=== PATIENT | male | born 1955 | race Hispanic/Latino ===

== ENCOUNTER 2022-06-02 05:44 | Day surgery (SDC) | payer MEDICARE ==
[2022-05-26 13:15] LABS: BASOPHILS % (AUTO) 0.7 % (0.0-5.0); EOSINOPHILS % (AUTO) 14.3 % (0.0-8.0); HEMATOCRIT 39.1 % (42-54); LYMPHOCYTES % (AUTO) 15.5 % (21.0-51.0); MEAN CORPUSCULAR HEMOGLOBIN 29.2 pg (27.0-33.0); MEAN CORPUSCULAR HGB CONC 33.5 g/dL (32.0-36.0); MEAN CORPUSCULAR VOLUME 87.1 fL (79-99); MONOCYTES % (AUTO) 8.4 % (3.0-13.0); NEUTROPHILS % (AUTO) 60.6 % (40.0-77.0); PLATELET COUNT (AUTO) 194 K/uL (130-400); RED BLOOD CELL COUNT(AUTO) 4.49 MIL/uL (4.50-6.20); RED CELL DISTRIBUTION WIDTH 13.9 % (11.0-15.5); WHITE BLOOD COUNT (AUTO) 7.5 K/uL (4.8-10.8)
[2022-05-26 13:27] LABS: CREATININE 1.1 mg/dL (0.5-1.5); POTASSIUM 4.7 mmol/L (3.5-5.1)
[2022-05-26 13:29] LABS: PROTHROMBIN TIME 10.9 SEC (9.6-11.6)
[2022-05-26 13:31] LABS: PARTIAL THROMBOPLASTIN TIME 27.2 SEC (26.3-35.5)
[2022-05-26 14:07] LABS: B-TYPE NATRIURETIC PEPTIDE 16 pg/mL (0-100)
[2022-05-27 13:01] VITALS: BP 176/81
[2022-06-02] VITALS (12 sets, daily range): BP systolic 126–188; BP diastolic 59–76
[~2022-06-02] VITALS: Ht 157.5 cm; Wt 70.3 kg
[~2022-06-02 05:44] MED LIST: ALBUTEROL IH; AMLO2.5T4 PO; AMOX500T2 PO; ATOR40TA69 PO; CLOP75TA32 PO; INSREG SQ; LEVO75CA5 PO; LISI40TA9 PO; NPH,100V11 SQ
[2022-06-02] MEDS ORDERED: 0.9%NACL 1000ML 1,000 ML IV ONE (06:10)
[2022-06-02] MEDS ORDERED: IODIXANOL 320 MG/ML 100 ML VIAL ONE (08:01)
[2022-06-02] MEDS ORDERED: HEPARIN 10,000 UNIT/10ML (1,000 UNIT/ML) VIAL ONE (08:01)
[2022-06-02] MEDS ORDERED: LIDOCAINE HCL 1% 20 ML VIAL ONE (08:01)
[2022-06-02] MEDS ORDERED: NICARDIPINE 25MG INJ IV ONE (08:01)
[2022-06-02] MEDS ORDERED: NITROGLYCERIN 50MG VIAL ONE (08:01)
[2022-06-02] MEDS ORDERED: MIDAZOLAM HCL 1 MG/ML 2ML VIAL ONE (08:02)
[2022-06-02] MEDS ORDERED: FENTANYL CITRATE PF 50 MCG/1 ML 2ML VIAL ONE (08:02)
[2022-06-02] MEDS ORDERED: CLOPIDOGREL 300MG TAB ONE (09:16)
[2022-06-02] MEDS ORDERED: LABETALOL 20MG SYG IV ONE (09:20)
[2022-06-02] MEDS ORDERED: 0.9%NACL 1000ML 1,000 ML IV SCH (10:30)
[2022-06-02] MEDS ORDERED: CILOSTAZOL 100 MG TAB PO SCH (12:00)
== END 2022-06-02 15:25 | disposition home or self-care (01) ==
LOC: DAH 05:44
PROVIDERS: ATTEND Internal Medicine Cardiovascular Disease
DX: I70.238 Atherosclerosis of native arteries of right leg with ulceration of other part of lower leg (principal); I70.92 Chronic total occlusion of artery of the extremities; E11.51 Type 2 diabetes mellitus with diabetic peripheral angiopathy without gangrene; I10 Essential (primary) hypertension; E78.5 Hyperlipidemia, unspecified; Z98.890 Other specified postprocedural states; Z82.49 Family history of ischemic heart disease and other diseases of the circulatory system; Z83.3 Family history of diabetes mellitus; Z79.01 Long term (current) use of anticoagulants; Z79.899 Other long term (current) drug therapy
CPT/HCPCS: 80048; 83880; 85025; 85610; 85730; 36415; 71045; 93005; 75716; 82948 ×2; C9774; C1725; C1894 ×2; C1769 ×3; C1760; C1893; C1887; C1724; C1727; J3010; J7030; J3490 ×2; J1644 ×3; J2250; Q9967; A4215; A4222; A4221; A4663; A4216; A4606; A4223 ×3; 96374; 96375; 99156; 99157

== ENCOUNTER → 2022-06-20 | Outpatient (CLI) | payer MEDICARE ==
[~2022-06-20] VITALS: Ht 177.8 cm; Wt 68.0 kg
[~2022-06-20] MED LIST changes: +0.9%NACL 1000ML 1,000 ML IV SCH; +CILO100T3 PO
[2022-06-20 11:37] LABS: BASOPHILS % (AUTO) 0.6 % (0.0-5.0); EOSINOPHILS % (AUTO) 9.7 % (0.0-8.0); HEMATOCRIT 38.6 % (42-54); LYMPHOCYTES % (AUTO) 10.5 % (21.0-51.0); MEAN CORPUSCULAR HEMOGLOBIN 29.1 pg (27.0-33.0); MEAN CORPUSCULAR HGB CONC 33.7 g/dL (32.0-36.0); MEAN CORPUSCULAR VOLUME 86.4 fL (79-99); MONOCYTES % (AUTO) 7.6 % (3.0-13.0); NEUTROPHILS % (AUTO) 70.8 % (40.0-77.0); PLATELET COUNT (AUTO) 277 K/uL (130-400); RED BLOOD CELL COUNT(AUTO) 4.47 MIL/uL (4.50-6.20); RED CELL DISTRIBUTION WIDTH 13.8 % (11.0-15.5); WHITE BLOOD COUNT (AUTO) 8.5 K/uL (4.8-10.8)
[2022-06-20 11:43] LABS: CREATININE 1.2 mg/dL (0.5-1.5); POTASSIUM 4.7 mmol/L (3.5-5.1)
[2022-06-20 12:28] LABS: B-TYPE NATRIURETIC PEPTIDE 7 pg/mL (0-100)
[2022-06-20 12:35] LABS: PROTHROMBIN TIME 10.9 SEC (9.6-11.6)
[2022-06-20 12:36] LABS: PARTIAL THROMBOPLASTIN TIME 30.2 SEC (26.3-35.5)
== END | disposition home or self-care (01) ==
LOC: DAH 10:00 → EDSTATUS 10:00
PROVIDERS: ATTEND Internal Medicine Cardiovascular Disease
DX: Z01.810 Encounter for preprocedural cardiovascular examination (principal); I73.9 Peripheral vascular disease, unspecified; Z79.01 Long term (current) use of anticoagulants
CPT/HCPCS: 36415; 71045; 80048; 83880; 85025; 85610; 85730; 93005

== ENCOUNTER 2023-10-13 05:50 | Day surgery (SDC) | payer MEDICARE ==
[2023-10-09 10:02] VITALS: BP 164/80; PULSE 93; RESP 19
[2023-10-09 10:02] LABS: BASOPHILS # (AUTO) 0.04 K/uL (0.00-0.20); BASOPHILS % (AUTO) 0.4 % (0.0-5.0); EOSINOPHILS # (AUTO) 0.97 K/uL (0.00-0.70); EOSINOPHILS % (AUTO) 9.8 % (0.0-8.0); HEMATOCRIT 35.7 % (42-54); IMMATURE GRANULOCYTE ABSOLUTE 0.07 K/uL (0-1); LYMPHOCYTES % (AUTO) 9.7 % (21.0-51.0); MEAN CORPUSCULAR HEMOGLOBIN 28.1 pg (27.0-33.0); MEAN CORPUSCULAR HGB CONC 33.3 g/dL (32.0-36.0); MEAN CORPUSCULAR VOLUME 84.4 fL (79-99); MONOCYTES # (AUTO) 0.6 K/uL (0.1-1.0); MONOCYTES % (AUTO) 5.5 % (3.0-13.0); NEUTROPHILS # (AUTO) 7.3 K/uL (1.8-7.7); NEUTROPHILS % (AUTO) 73.9 % (40.0-77.0); PLATELET COUNT (AUTO) 247 K/uL (130-400); RED BLOOD CELL COUNT(AUTO) 4.23 MIL/uL (4.50-6.20); RED CELL DISTRIBUTION WIDTH 14.6 % (11.0-15.5); WHITE BLOOD COUNT (AUTO) 9.9 K/uL (4.8-10.8)
[2023-10-09 10:12] LABS: INR <= 0.93 (0.85-1.15); PROTHROMBIN TIME 10.8 SEC (9.6-11.6)
[2023-10-09 10:13] LABS: PARTIAL THROMBOPLASTIN TIME 29.9 SEC (26.3-35.5)
[2023-10-09 10:13] LABS: ADD UA MICROSCOPIC YES; APPEARANCE,URINE CLEAR (CLEAR); BILIRUBIN,URINE NEGATIVE (NEGATIVE); COLOR,URINE LIGHT-YELLOW (YELLOW); GLUCOSE, URINE (UA) >=1000 mg/dL (NEGATIVE); KETONES,URINE NEGATIVE (NEGATIVE); LEUKOCYTE ESTERASE ,URINE NEGATIVE Leu/uL (NEGATIVE); NITRATE,URINE NEGATIVE (NEGATIVE); OCCULT BLOOD,URINE NEGATIVE (NEGATIVE); PROTEIN,URINE 20 mg/dL (NEGATIVE); UROBILINOGEN,URINE 0.2 mg/dL (0.2-1.0)
[2023-10-09 10:14] LABS: MUCUS,URINE RARE LPF (None Seen); SQUAMOUS EPITHELIAL CELL,UR RARE /HPF (0-2); WBC,URINE 0-1 /HPF (0-1)
[2023-10-09 10:16] LABS: CREATININE 1.4 mg/dL (0.5-1.3); POTASSIUM 4.7 mmol/L (3.5-5.1)
[2023-10-09 10:22] LABS: B-TYPE NATRIURETIC PEPTIDE 28 pg/mL (0-100)
[2023-10-13] VITALS (10 sets, daily range): BP systolic 98–168; BP diastolic 50–80; PULSE 84–93; RESP 14–18
[~2023-10-13] VITALS: Ht 177.8 cm; Wt 68.0 kg
[~2023-10-13 05:50] MED LIST changes: -0.9%NACL 1000ML 1,000 ML IV SCH; +ALBU2.5V2 IH; -ALBUTEROL IH; -AMOX500T2 PO; -INSREG SQ; +INSU100V3 SQ; +LISI20TA24 PO; -LISI40TA9 PO; +METO-408 PO; +NPH,100V SQ; -NPH,100V11 SQ; +TRIA60LO11 TP
[2023-10-13] MEDS: 0.9%NACL 1000ML 1,000 ML IV ONE (06:21)
[2023-10-13] MEDS ORDERED: LIDOCAINE HCL 400MG/20ML VIAL ONE (07:27)
[2023-10-13] MEDS ORDERED: MIDAZOLAM HCL 1 MG/ML 2ML VIAL ONE ×2 (07:27→09:35)
[2023-10-13] MEDS ORDERED: FENTANYL CITRATE PF 50 MCG/1 ML 2ML VIAL ONE (07:27)
[2023-10-13] MEDS ORDERED: HEPARIN 10,000 UNIT/10ML (1,000 UNIT/ML) VIAL ONE (07:27)
[2023-10-13] MEDS ORDERED: IODIXANOL 320 MG/ML 100 ML VIAL ONE (07:27)
[2023-10-13] MEDS ORDERED: NICARDIPINE 25MG INJ IV ONE (07:28)
[2023-10-13] MEDS ORDERED: NITROGLYCERIN 50MG VIAL ONE (07:28)
[2023-10-13] MEDS ORDERED: LABETALOL 20MG SYG IV ONE (08:25)
[2023-10-13] MEDS ORDERED: CLOPIDOGREL 300MG TAB ONE (08:37)
[2023-10-13] MEDS ORDERED: HYDRALAZINE 20MG/ML VIAL ONE (09:12)
[2023-10-13] MEDS ORDERED: ONDANSETRON 4MG INJ ONE (09:28)
[2023-10-13] MEDS ORDERED: DEXTROSE 50%-WATER 50 ML DISP.SYRIN IV PRN (10:00)
[2023-10-13] MEDS ORDERED: 0.9%NACL 1000ML 1,000 ML IV SCH (10:00)
[2023-10-13] MEDS ORDERED: GLUCAGON 1MG KIT 1 MG ML IM PRN (10:00)
[2023-10-13] MEDS: INSULIN HUMULIN R 100 UNIT/ML 3ML ONE (10:33)
== END 2023-10-13 13:50 | disposition home or self-care (01) ==
LOC: DAH 05:50
PROVIDERS: ATTEND Internal Medicine Cardiovascular Disease
DX: I70.248 Atherosclerosis of native arteries of left leg with ulceration of other part of lower leg (principal); E11.51 Type 2 diabetes mellitus with diabetic peripheral angiopathy without gangrene; L97.828 Non-pressure chronic ulcer of other part of left lower leg with other specified severity; I70.92 Chronic total occlusion of artery of the extremities; I49.3 Ventricular premature depolarization; I10 Essential (primary) hypertension; E78.5 Hyperlipidemia, unspecified; Z79.899 Other long term (current) drug therapy; Z79.01 Long term (current) use of anticoagulants; Z88.8 Allergy status to other drugs, medicaments and biological substances; Z82.49 Family history of ischemic heart disease and other diseases of the circulatory system; Z98.890 Other specified postprocedural states; Z79.4 Long term (current) use of insulin
CPT/HCPCS: 80048; 83880; 85025; 85610; 85730; 81001; 36415; 71045; 93005; 37228; 85347; 82948 ×2; 75716; J1815; C1894 ×3; C1769 ×6; C1760; C2623; C1887; C1725; J3010; J3490 ×3; J7030; J0360; J1644 ×3; J2250 ×2; J2405; Q9967; A4215; A4222; A4221; A4663; A4216; A4606; A4223 ×3; 75774; 96360; 96361; 99156; 99157

== ENCOUNTER → 2024-04-07 | Outpatient (CLI) | payer MEDICARE | END | disposition home or self-care (01) | LOC: SHCH 12:35 | PROVIDERS: ATTEND Internal Medicine Cardiovascular Disease | DX: I87.2 Venous insufficiency (chronic) (peripheral) (principal) | CPT/HCPCS: 93970 ==

== ENCOUNTER 2024-06-26 15:50 | Inpatient (IN) | payer MEDICARE ==
[~2024-06-26] VITALS: Ht 165.1 cm; Wt 76.7 kg
--- NOTE | 2024-06-26 16:10 | NUR ---
PRESENTS WITH MULTIPLE WOUNDS THROUGHOUT. LATA PICC OR MIDLINE. PEG. SHARMA CATHETER,.
[2024-06-26] MEDS: cefTRIAXone 1G VIAL IVPB ONE (16:29)
[2024-06-26 16:41] LABS: BASOPHILS # (AUTO) 0.02 K/uL (0.00-0.20); BASOPHILS % (AUTO) 0.2 % (0.0-5.0); EOSINOPHILS # (AUTO) 0.15 K/uL (0.00-0.70); EOSINOPHILS % (AUTO) 1.6 % (0.0-8.0); HEMATOCRIT 24.2 % (42-54); IMMATURE GRANULOCYTE ABSOLUTE 0.14 K/uL (0-1); LYMPHOCYTES # (AUTO) 0.7 K/uL (1.0-4.8); LYMPHOCYTES % (AUTO) 6.9 % (21.0-51.0); MEAN CORPUSCULAR HEMOGLOBIN 28.4 pg (27.0-33.0); MEAN CORPUSCULAR VOLUME 91.7 fL (79-99); MONOCYTES # (AUTO) 0.5 K/uL (0.1-1.0); MONOCYTES % (AUTO) 4.8 % (3.0-13.0); PLATELET COUNT (AUTO) 126 K/uL (130-400); RED BLOOD CELL COUNT(AUTO) 2.64 MIL/uL (4.50-6.20); RED CELL DISTRIBUTION WIDTH 23.5 % (11.0-15.5); WHITE BLOOD COUNT (AUTO) 9.4 K/uL (4.8-10.8)
[2024-06-26 16:42] LABS: SARS-CoV-2, RNA, NAAT NEGATIVE SARS CoV-2 (NEGATIVE)
[2024-06-26 16:47] LABS: INFLUENZA TYPE A Negative For Type A (NEGATIVE); INFLUENZA TYPE B Negative For Type B (NEGATIVE)
[2024-06-26 16:51] LABS: INR 1.04 (0.85-1.15); PROTHROMBIN TIME 11.6 SEC (9.6-11.6)
[2024-06-26 16:53] LABS: PARTIAL THROMBOPLASTIN TIME 30.2 SEC (26.3-35.5)
[2024-06-26 16:56] LABS: CREATININE 2.1 mg/dL (0.5-1.3); POTASSIUM 4.9 mmol/L (3.5-5.1)
[2024-06-26 16:59] LABS: B-TYPE NATRIURETIC PEPTIDE 86 pg/mL (0-100)
--- NOTE | 2024-06-26 17:38 | ERN ---
General Chief Complaint: Multiple Complaints Stated Complaint: HYPOTENSION, FEVER, WEAKNESS Time Seen by MD: 15:56 Source: patient History of Present Illness Initial Comments PATIENT IS A 68-YEAR-OLD FEMALE COMING IN TO BE EVALUATED FOR GENERALIZED BODY WEAKNESS AND PER EMS LOW BLOOD PRESSURE. PATIENT HAS A EXTENSIVE HISTORY OF CARDIAC EVENT WITH END-STAGE RENAL DISEASE REQUIRING DIALYSIS. PATIENT WAS BEING EVALUATED AND JAIL AND CONCERNS FOR PULMONARY CONGESTION AND FEVER HER BROUGHT UP IN HIS IS A REASON WHY PATIENT WAS SENT IN TO BE FURTHER EVALUATED. Allergies: Coded Allergies: aspirin (Unverified Allergy, Unknown, 04/25/22) Home Meds Discontinued Reported Medications Atorvastatin Calcium (LIPITOR) 40 Mg Tablet, 1 TAB PO HS for 30 Days, #30 TAB 0 Refills 06/03/24 Hydroxyzine HCl (Hydroxyzine HCl) 25 Mg Tablet, 1 TAB PO HS for anxiety for 30 Days, #60 TAB 0 Refills 06/03/24 Cilostazol (Cilostazol) 100 Mg Tablet, 1 TAB PO HS for 30 Days, #60 TAB 0 Refills 06/03/24 Rivaroxaban (Xarelto) 20 Mg Tablet, 1 TAB PO BID for 30 Days, #30 TAB 0 Refills with food 06/03/24 Metoprolol Succinate (Metoprolol Succinate) 50 Mg Tab.er.24h, 1 TAB PO BID for 30 Days, #30 TAB 0 Refills 06/03/24 Levothyroxine Sodium (Levothyroxine) 75 Mcg Capsule, 1 TAB PO DAILY for 30 Days, #30 CAP 0 Refills 06/03/24 Albuterol Sulfate (Albuterol Sulfate) 2.5 Mg/3 Ml (0.083 %) Vial.neb, 2.5 MG IH Q4HPRN PRN for SHORTNESS OF BREATH, INH 10/09/23 Insulin Regular, Human (Humulin R) 100 Unit/Ml Vial, SQ HS, VIAL SLIDING SCALE 10/09/23 NPH, Human Insulin Isophane (Humulin N) 100 Unit/Ml Vial, 9 UNIT SQ HS, VIAL 10/09/23 NPH, Human Insulin Isophane (Humulin N) 100 Unit/Ml Vial, 20 UNITS SQ DAILY, VIAL 10/09/23 Insulin Regular, Human (Humulin R) 100 Unit/Ml Vial, 5 UNITS SQ DAILY, VIAL 10/09/23 Past Medical History Past Medical History: Diabetes-Type II, DVT, Hypertension, Stroke Medical History Other: BLOOD CLOT IN RIGHT LEG, Past Surgical History: Other Surgical History Other: BILATERAL TMA ROS Dictation CONSTITUTIONAL: NO CHILLS, NO FEVER, WEAKNESS, NO DIAPHORESIS, MALAISE. HEAD/FACE: NO SIGNS OF TRAUMA. EENT: NO EYE PAIN, NO BLURRED VISION, NO TEARING, NO DOUBLE VISION, NO EAR PAIN, NO EAR DISCHARGE, NO NOSE PAIN, NO NASAL CONGESTION, NO THROAT PAIN, NO THROAT SWELLING, NO MOUTH PAIN. RESPIRATORY: COUGH, NO ORTHOPNEA, NO SOB, NO STRIDOR, NO WHEEZING. CARDIOVASCULAR: NO CHEST PAIN, NO EDEMA, NO PALPITATIONS, NO SYNCOPE. GASTROINTESTINAL/ABDOMINAL: NO ABDOMINAL PAIN, NO CONSTIPATION, NO DIARRHEA, NO NAUSEA, NO VOMITING. GENITOURINARY: NO ABNORMAL DISCHARGE, NO DYSURIA, NO FREQUENT URINATION, NO HEMATURIA. NO COMPLAINTS OF PAIN IN THE GENITALS. MUSCULOSKELETAL: NO BACK PAIN, NO GOUT, NO JOINT PAIN, NO JOINT SWELLING, NO MUSCLE PAIN, NO MUSCLE STIFFNESS, NO NECK PAIN. INTEGUMENTARY: NO CHANGE IN COLOR, NO CHANGE IN HAIR/NAILS, NO DRYNESS, NO LESION, NO LUMPS, NO RASH. NEUROLOGICAL/PSYCH: NO ANXIETY, NOT DEPRESSED, NO EMOTIONAL PROBLEM, NO HEADACHE, NO NUMBNESS, NO PRE-EXISTING DEFICIT, NO HISTORY OF SEIZURES, NO TREMORS, NO WEAKNESS. HEMATOLOGIC/LYMPHATIC: NOT ANEMIC, NO HISTORY OF BLOOD CLOTS, NO APPARENT BLEEDING, NO BRUISING, GLANDS NOT SWOLLEN. ALL SYSTEMS NEGATIVE, EXCEPT NOTED. Physical Exam Physical Exam Dictation VITAL SIGNS: REVIEWED. GENERAL APPEARANCE: ALERT, ORIENTED X3, NO ACUTE DISTRESS, OBESE. HEAD AND FACE: NON-TRAUMATIC. EYES: PERRL, PINK CONJUNCTIVAS, EYELID NO TRAUMA, ANTERIOR CHAMBER CLEAR. EARS: PINNAS INTACT AND NO SIGNS OF TRAUMA OR ERYTHEMA. EAR CANALS CLEAR AND NO DISCHARGE. TMS NO ERYTHEMA. NOSE: NO DISCHARGE, NO BLEEDING. OROPHARYNX: MOUTH NORMAL, TEETH NO CARIES, TONGUE PINK. PHARYNX CLEAR, NO ERYTHEMA. TONSILS NO EXUDATES, NO ABSCESSES NOTED. MUCOUS MEMBRANE MOIST. NECK: SUPPLE, NON-TENDER, NO THYROMEGALY, NO MASSES, NO JVD, NO BRUITS. BREAST: DEFERRED. CHEST: NO TENDERNESS, NO CREPITUS, NO PARADOXICAL MOVEMENT, NO RETRACTIONS. LUNGS: CLEAR, WELL-VENTILATED, SYMMETRIC, RALES, NO WHEEZING, RHONCHI, NO STRIDOR, GOOD BREATH SOUNDS BILATERALLY. HEART: REGULAR RATE, REGULAR RHYTHM, NO MURMUR, NO GALLOPS. VASCULAR: NO PERIPHERAL EDEMA. ABDOMEN: SOFT, POSITIVE BOWEL SOUNDS, NONDISTENDED, NO GUARDING, NONTENDER, NO REBOUND, NO MASSES NO HEPATOMEGALY, NO SPLENOMEGALY, NO CORRAL'S SIGN, NO HERNIA S. RECTAL: DEFERRED. GENITAL: DEFERRED. NEUROLOGICAL: NORMAL SPEECH, GROSS MOTOR FUNCTION INTACT, GROSS SENSORY FUNCTION INTACT. MUSCULOSKELETAL: NECK NONTENDER, FULL RANGE OF MOTION, BACK NONTENDER, FULL RANGE OF MOTION. EXTREMITIES: NONTENDER, FULL RANGE OF MOTION. SKIN: COLOR PINK, DRY, NO TURGOR, NO RASH, NO LACERATIONS, NO ABRASIONS, NO CONTUSIONS. LYMPHATICS: DEFERRED. Results Laboratory and Microbiology Lab and Micro Result Laboratory Tests Test 06/26/24 16:23 06/26/24 16:24 06/26/24 17:44 Influenza Type A Antigen Negative For Type A Influenza Type B Antigen Negative For Type B SARS-CoV-2, RNA, NAAT NEGATIVE SARS CoV-2 White Blood Count 9.4 K/uL (4.8-10.8) Red Blood Count 2.64 MIL/uL (4.50-6.20) L Hemoglobin 7.5 g/dL (14.0-18.0) L Hematocrit 24.2 % (42-54) L Mean Corpuscular Volume 91.7 fL (79-99) Mean Corpuscular Hemoglobin 28.4 pg (27.0-33.0) Mean Corpuscular Hemoglobin Concent 31.0 g/dL (32.0-36.0) L Red Cell Distribution Width 23.5 % (11.0-15.5) H Platelet Count 126 K/uL (130-400) L Mean Platelet Volume 10.6 fL (7.5-10.5) H Immature Granulocyte % (Auto) 1.5 % (0-1) H Neutrophils (%) (Auto) 85.0 % (40.0-77.0) H Lymphocytes (%) (Auto) 6.9 % (21.0-51.0) L Monocytes (%) (Auto) 4.8 % (3.0-13.0) Eosinophils (%) (Auto) 1.6 % (0.0-8.0) Basophils (%) (Auto) 0.2 % (0.0-5.0) Neutrophils # (Auto) 8.0 K/uL (1.8-7.7) H Lymphocytes # (Auto) 0.7 K/uL (1.0-4.8) L Monocytes # (Auto) 0.5 K/uL (0.1-1.0) Eosinophils # (Auto) 0.15 K/uL (0.00-0.70) Basophils # (Auto) 0.02 K/uL (0.00-0.20) Absolute Immature Granulocyte (auto 0.14 K/uL (0-1) Nucleated Red Blood Cells 0.0 % (0.0-0.19) Prothrombin Time 11.6 SEC (9.6-11.6) Prothromb Time International Ratio 1.04 (0.85-1.15) Activated Partial Thromboplast Time 30.2 SEC (26.3-35.5) Sodium Level 145 mmol/L (136-145) Potassium Level 4.9 mmol/L (3.5-5.1) Chloride Level 111 mmol/L (101-111) Carbon Dioxide Level 32 mmol/L (21-32) Blood Urea Nitrogen 45 mg/dL (7-18) H Creatinine 2.1 mg/dL (0.5-1.3) H Glomerular Filtration Rate Calc 33 mL/min (>90) Random Glucose 298 mg/dL (70-105) H Lactic Acid Level 1.6 mmol/L (0.8-2.5) Total Calcium 7.4 mg/dL (8.5-10.1) L Total Creatine Kinase 106 U/L (21-232) # Troponin I High Sensitivity 34 ng/L (4-75) B-Type Natriuretic Peptide 86 pg/mL (0-100) Procalcitonin 1.19 ng/mL (0.05-0.5) H Urine Color YELLOW (YELLOW) Urine Appearance HAZY (CLEAR) Urine pH 7.0 (5.0-8.0) Urine Specific Cliff 1.019 (1.001-1.031) Urine Protein 30 mg/dL (NEGATIVE) H Urine Glucose (UA) >=1000 mg/dL (NEGATIVE) H Urine Ketones NEGATIVE mg/dL (NEGATIVE) Urine Occult Blood SMALL (NEGATIVE) H Urine Nitrate NEGATIVE (NEGATIVE) Urine Bilirubin NEGATIVE mg/dL (NEGATIVE) Urine Urobilinogen 0.2 mg/dL (0.2-1.0) Urine Leukocyte Esterase 500 Abhijeet/uL (NEGATIVE) H Urine RBC 26-50 /HPF (0-1) H Urine WBC 26-50 /HPF (0-1) H Urine Bacteria RARE /HPF (None Seen) Urine Yeast MANY /HPF (None Seen) Labs Reviewed?: Yes EKG/XRAY/US/CT/MRI EKG Comment 06/26/2024 TIME 17:44 VENTRICULAR RATE 92. SINUS RHYTHM MT [address] WAVE ELEVATION OR DEPRESSION X-RAY Comment [address] [place], [place] [id number] IMAGING REPORT Signed PATIENT: TYRON MIN MR#: [id number] : 1955 SEX: M AGE: 68 LOCATION: [facility] ORDER 26 STATUS: REG ER REPORT#: [id number] SERVICE 25 REASON: FEVER ORDERING PHYSICIAN: HARIKA ESPINOZA MD PROCEDURE: CXR1VW - CHEST 1VW CHEST 1VW HISTORY: Fever COMPARISON: 06/19/2024 FINDINGS: A frontal projection of the chest was obtained. Prominent interstitial markings are seen with possible superimposed infiltrates. The heart is normal in size. Degenerative changes are seen. No evidence of aortic calcification is seen. IMPRESSION: 1. Prominent interstitial markings are seen with possible superimposed infiltrates. DICTATED BY: MADISON RENEE MD DATE: 06/26/241809 ELECTRONICALLY SIGNED BY: MADSION RENEE MD DATE: 06/26/241814 [facility] MDM: DIFFERENTIAL DIAGNOSIS: PNEUMONITIS, URI, SEPSIS, RATIONALE: TESTS CONSIDERED AND ORDERED SECONDARY TO SHARED DECISION MAKING INCLUDE: LABS, ECG AND RADIOLOGY PREVIOUS OUTSIDE RECORDS REVIEWED: OLD ER VISITS. RISK OF COMPLICATION AND/OR MORBIDITY OR MORTALITY OF PATIENT MANAGEMENT: NONE MEDICATIONS-PER MEDICATION RECONCILIATION NEED FOR HOSPITALIZATION: PATIENT DOES MEET CRITERIA FOR HOSPITALIZATION. NEED FOR EMERGENCY MAJOR/MINOR SURGERY: NO THERE ARE NO SOCIAL CONCERNS WITH THIS PATIENT. PRESCRIPTION DRUG MANAGEMENT PRESCRIPTIONS WILL INCLUDE SYMPTOMATIC CARE PATIENT'S PRIOR EXTERNAL MEDICAL RECORDS FROM OTHER ER VISITS WERE REVIEWED BY ME INDICATED. PRIOR TESTING AND RESULTS FROM PREVIOUS VISITS WERE REVIEWED. PRIOR TESTS WERE TAKEN INTO ACCOUNT WITH MEDICAL DECISION MAKING AND RESOURCE UT ILIZATION, INDEPENDENT HISTORIAN/HISTORIANS WERE USED TO OBTAIN COMPLETE MEDICAL HISTORY. I INDEPENDENTLY INTERPRETED THE TEST THAT WERE PERFORMED, RESULTS WERE REVIEWED BY ME AND CONSIDERED FINDINGS ON RADIOLOGY IF ORDERED. MEDICAL MANAGEMENT AND EXAMINATION INTERPRETATION DISCUSSIONS WERE HAD BY ME WITH OTHER QUALIFIED HEALTHCARE PROFESSIONALS INDICATED FOR THE PATIENT'S CAR E. PATIENT IS A 68-YEAR-OLD MALE RESIDENT JAIL BROUGHT IN DUE TO THE SHORTNESS OF BREATH AND FEVER. UPON EVALUATION MILD PULMONARY INFILTRATES AND DID SET UP THE SEPSIS ALERT. PATIENT WILL BE ADMITTED UNDER THE CARE OF [facility] FOR ONGOING MANAGEMENT. ED Course Orders Procedure Category Date Status Time Cbc With Differential LAB 06/26/24 Complete 16:09 Prothrombin Time With LAB 06/26/24 Complete INR 16:09 Partial LAB 06/26/24 Complete Thromboplastin Time 16:09 Blood Cult NIKOLAS 06/26/24 In Process 16:09 Urinalysis Profile LAB 06/26/24 Complete 16:09 Culture Urine NIKOLAS 06/26/24 In Process 16:09 Creatine Kinase, Total LAB 06/26/24 Complete 16:09 Troponin I High LAB 06/26/24 Complete Sensitivity 16:09 B-Type Natriuretic LAB 06/26/24 Complete Peptide 16:09 Procalcitonin LAB 06/26/24 Complete 16:09 Lactic Acid LAB 06/26/24 Complete 16:09 Ceftriaxone 1g Vial PHA 06/26/24 Complete (Rocephine 1g Inj) 16:30 Basic Metabolic Panel LAB 06/26/24 Complete 16:09 Covid Rna Naat LAB 06/26/24 Complete 16:09 Influenza Type A & B, LAB 06/26/24 Complete Rapid 16:09 Chest 1vw RAD 06/26/24 Resulted 17:26 12 Lead Ekg Tracing- EKG 06/26/24 Complete Technical 17:39 Current Medications Medications (Trade) Dose Ordered Sig/Guevara Route PRN Reason Start Time Stop Time Status Last Admin Dose Admin Ceftriaxone Sodium (ROCEphine 1G INJ) 1 gm ONCE ONCE IVPB 06/26/24 16:30 06/26/24 16:31 DC 06/26/24 16:29 Vital Signs Date Time Temp Pulse Resp B/P (MAP) Pulse Ox O2 Delivery O2 Flow Rate FiO2 06/26/24 15:59 100.0 96 15 142/40 99 Nasal Cannula* 2 28 06/26/24 15:53 100.0 98 18 139/44 98 Nasal Cannula 2.0 Critical Care Note Comments CRITICAL CARE PROCEDURE NOTE AUTHORIZED AND PERFORMED BY: ME TOTAL CRITICAL CARE TIME: APPROXIMATELY 36 MINUTES DUE TO A HIGH PROBABILITY OF CLINICALLY SIGNIFICANT, LIFE THREATENING DETERIORATION, THE PATIENT REQUIRED MY HIGHEST LEVEL OF PREPAREDNESS TO INTERVENE EMERGENTLY AND I PERSONALLY SPENT THIS CRITICAL CARE TIME DIRECTLY AND PERSONALLY MANAGING THE PATIENT. THIS CRITICAL CARE TIME INCLUDED OBTAINING A HISTORY; EXAMINING THE PATIENT; PULSE OXIMETRY; ORDERING AND REVIEW OF STUDIES; ARRANGING URGENT TREATMENT WITH DEVELOPMENT OF A MANAGEMENT PLAN; EVALUATION OF PATIENT'S RESPONSE TO TREATMENT; FREQUENT REASSESSMENT; AND, DISCUSSIONS WITH OTHER PROVIDERS. THIS CRITICAL CARE TIME WAS PERFORMED TO ASSESS AND MANAGE THE HIGH PROBABILITY OF IMMINENT, LIFE-THREATENING DETERIORATION THAT COULD RESULT IN MULTI-ORGAN FAILURE. IT WAS EXCLUSIVE OF SEPARATELY BILLABLE PROCEDURES AND TREATING OTHER PATIENTS AND TEACHING TIME. PLEASE SEE MDM SECTION AND THE REST OF THE NOTE FOR FURTHER INFORMATION ON PATIENT ASSESSMENT AND TREATMENT. DX & DISP Disposition: Inpatient Decision to Admit Time: 18:53 Departure Impression: Primary Impression: Pneumonitis Additional Impressions: Sepsis, URI (upper respiratory infection) Condition: Stable Scripts No Active Prescriptions or Reported Meds Referrals: JOHANN CARLSON MD (PCP) HARIKA ESPINOZA MD Jun 26, 2024 17:38
--- NOTE | 2024-06-26 17:47 | EKG ---
[facility] Test Date: 2024-06-26 Test Time: 17:44:46 Pat Name: TYRON MIN Department: ED Room: 317 Gender: M Prenatal Genetic Counselor: [id number] : 1955 Requested By: HARIKA ESPINOZA Order Number: [id number] Reading MD: Chato Kitchen Measurements Intervals Edmonson Rate: 92 P: 73 DE: 181 QRS: 59 QRSD: 79 T: 73 QT: 413 QTc: 510 Interpretive Statements Sinus rhythm Nonspecific T abnormalities, lateral leads Prolonged QT interval Compared to ECG 06/17/2024 03:52:22 T-wave abnormality now present Electronically Signed On 06-26-2024 21:47:53 TAKE OFF MAN by Chato Kitchen Please click the below link to view image of tracing.
--- NOTE | 2024-06-26 18:15 | HMCIMG ---
CHEST 1VW HISTORY: Fever COMPARISON: 06/19/2024 FINDINGS: A frontal projection of the chest was obtained. Prominent interstitial markings are seen with possible superimposed infiltrates. The heart is normal in size. Degenerative changes are seen. No evidence of aortic calcification is seen. IMPRESSION: 1. Prominent interstitial markings are seen with possible superimposed infiltrates.
[2024-06-26 18:32] LABS: APPEARANCE,URINE HAZY (CLEAR); BILIRUBIN,URINE NEGATIVE (NEGATIVE); COLOR,URINE YELLOW (YELLOW); GLUCOSE, URINE (UA) >=1000 mg/dL (NEGATIVE); KETONES,URINE NEGATIVE (NEGATIVE); LEUKOCYTE ESTERASE ,URINE 500 Leu/uL (NEGATIVE); NITRATE,URINE NEGATIVE (NEGATIVE); OCCULT BLOOD,URINE SMALL (NEGATIVE); UROBILINOGEN,URINE 0.2 mg/dL (0.2-1.0)
[2024-06-26 18:33] LABS: ADD UA MICROSCOPIC YES; PROTEIN,URINE 30 mg/dL (NEGATIVE)
[2024-06-26 18:34] LABS: BACTERIA,URINE RARE /HPF (None Seen); RBC,URINE 26-50 /HPF (0-1); WBC,URINE 26-50 /HPF (0-1); YEAST,URINE BUDDING MANY /HPF (None Seen)
[2024-06-26] MEDS ORDERED: TEMAZepam 15 MG CAPSULE PO PRN (19:30)
[2024-06-26] MEDS ORDERED: ondanSETRON 4MG INJ IVP PRN (19:30)
[2024-06-26] MEDS ORDERED: doCUSate SODIUM 100 MG CAP PO PRN (19:30)
[2024-06-26] MEDS ORDERED: DOXYCYCLINE 100MG+NS 250ML 250 ML IV SCH (19:30)
[2024-06-26] MEDS ORDERED: LACTULOSE 20 GM/30 ML UDCUP PO PRN (19:30)
[2024-06-26] MEDS ORDERED: acetaMINOPHEN 650 MG SUPPOSITORY RC PRN (19:30)
--- NOTE | 2024-06-26 19:41 | HP ---
[facility] HISTORY & PHYSICAL Date Patient Seen: Jun 26, 2024 Time of Visit: 19:41 Supervising Physician: Dr. Curtis Gillette Primary Care Physician: Dr. Huey Frank Outpatient Specialists: Inpatient Consults: Infectious disease Wound Care PROBLEM LIST: Sepsis without septic shock, POA Acute complicated cystitis, POA -Araya COMMUNITY EDUCATION SPECIALIST Large wounds to upper inner thighs, POA Aspiration pneumonia, POA Acute infectious metabolic encephalopathy, POA ANJU on CKD stage 3b, GFR 33 POA (GFR 43 on 06/22/2024. GFR 14 on 06/03/2024) Dysphagia s/p peg tube placement on 06/20/2024 Oral thrush, POA Anemia chronic disease Thrombocytopenia Debility/frailty/general body weakness Diabetes mellitus with hyperglycemia, A1c 8.5 on 06/11/24 LVEF 60-65, left ventricular diastolic dysfunction is indeterminate. Left atrium size is mildly dilated, per echo on 06/04/2024 Protein calorie malnutrition/hypoalbuminemia Chronic problem list: Remote CVA, Hypertension, hyperlipidemia, diabetes mellitus, right eye surgery History of DVT on Xarelto. (normal bilateral lower extremity venous Doppler subtle on 06/17/2024) History of DKA History of in-hospital cardiac arrest (5 minutes) on 06/06/2024 Acute hypoxemic respiratory failure intubated in 06/06/2024 and extubated on 06/15/2024 History of a Gram-negative bacteria, positive Proteus mirabilis History of liver failure with hyperbilirubinemia and thrombocytopenia History of coagulopathy with critically elevated fibrinogen level and thrombocytopenia History of TMA, right eye surgery. Peg tube placement on 06/20/2024 HPI: Mr. Blanco is a 68-year-old male with a history of a DM type 2, CVA, DVT, hypertension, CVA, with ESRD requiring dialysis who presented to [facility] for evaluation of general body weakness and low blood pressure per EMS. Per ED physician the patient is coming from [facility] and was sent due to concern for pulmonary congestion and fever. Per staff unknown how low the blood pressure was. Influenza and COVID are negative. Chest x-ray: Prominent interstitial markings are seen with possible superimposed infiltrates. ABGs: PH 7.543, pCO2 34, PO2 106.3, bicarbonate 25.9, O2 98.3, base excess 3.3, on2 L nasal cannula. Remarkable lab results: Hemoglobin 7.5, hematocrit 24.2, RBC 2.64, platelets 126, BUN 45, creatinine 2.1, GFR 33, blood glucose 298, total calcium 7.4, procalcitonin 1.9. UA positive for leuk EST. ED provider request patient be admitted with the diagnosis of pneumonitis, sepsis, and upper respiratory infection. I went to assess the patient at bedside in ED 11. The patient appeared chronically ill, hot to touch, eyes closed, speech is slurred, does not follow command, has tremor to his left hand. Patient's was at bedside and stated that the patient has had a previous stroke and is sometime was oriented to self and sometimes to place. She states his baseline is slurred speech, is not able to move bilateral lower extremity, and has some movement to upper extremities. She stated that the patient has thrush, indwelling Araya that was placed in the hospital and has not been changed. She is requesting water for patient to most and his mouth. had multiple questions which were addressed by me. I informed the of labs, diagnostics, and plan of care. Education done on dysphagia and aspiration precautions. She verbalizes understanding and is in agreement with the plan. Plan and assessment are listed below. Past Medical History: Diabetes-Type II, DVT, Hypertension, CVA, DVT and right lower extremity Past Surgical History: Bilateral TMA Social history: Negative Coded Allergies: aspirin (Unverified Allergy, Unknown, 04/25/22) REVIEW OF SYSTEMS: Unable to obtain ROS from patient due to AMS PHYSICAL EXAM: GENERAL: Weak, awake oriented x 1, chronically ill-appearing HEENT: EOMI, Sclera non icteric, moist mucosa NECK: Supple, no JVD, trachea midline LUNGS: Diminished, breath sounds bilaterally. No wheezes HEART: Regular rate and rhythm. Normal S1 and S2, without murmurs ABD: Abdomen soft, nontender. Bowel sounds present. : Araya in place. SKIN: Large wounds yellowish in color with erythema to inner thighs. EXT: No clubbing cyanosis or edema. Bilateral TMA. NEURO: Oriented to person, does not follow command. Speech is clear slurred, unable to move lower extremities, limited upper extremities movement at baseline per . Vital Signs (last 8hr) Date Time Temp Pulse Resp B/P (MAP) Pulse Ox O2 Delivery O2 Flow Rate FiO2 06/26/24 15:59 100.0 96 15 142/40 99 Nasal Cannula* 2 28 06/26/24 15:53 100.0 98 18 139/44 98 Nasal Cannula 2.0 LABS: Hematology Labs: Test 06/26/24 16:24 Range/Units White Blood Count 9.4 4.8-10.8 K/uL Red Blood Count 2.64 L 4.50-6.20 MIL/uL Hemoglobin 7.5 L 14.0-18.0 g/dL Hematocrit 24.2 L 42-54 % Mean Corpuscular Volume 91.7 79-99 fL Mean Corpuscular Hemoglobin 28.4 27.0-33.0 pg Mean Corpuscular Hemoglobin Concent 31.0 L 32.0-36.0 g/dL Red Cell Distribution Width 23.5 H 11.0-15.5 % Platelet Count 126 L 130-400 K/uL Mean Platelet Volume 10.6 H 7.5-10.5 fL Immature Granulocyte % (Auto) 1.5 H 0-1 % Neutrophils (%) (Auto) 85.0 H 40.0-77.0 % Lymphocytes (%) (Auto) 6.9 L 21.0-51.0 % Monocytes (%) (Auto) 4.8 3.0-13.0 % Eosinophils (%) (Auto) 1.6 0.0-8.0 % Basophils (%) (Auto) 0.2 0.0-5.0 % Neutrophils # (Auto) 8.0 H 1.8-7.7 K/uL Lymphocytes # (Auto) 0.7 L 1.0-4.8 K/uL Monocytes # (Auto) 0.5 0.1-1.0 K/uL Eosinophils # (Auto) 0.15 0.00-0.70 K/uL Basophils # (Auto) 0.02 0.00-0.20 K/uL Absolute Immature Granulocyte (auto 0.14 0-1 K/uL Nucleated Red Blood Cells 0.0 0.0-0.19 % Chemistry Labs: Test 06/26/24 16:24 Range/Units Sodium Level 145 136-145 mmol/L Potassium Level 4.9 3.5-5.1 mmol/L Chloride Level 111 101-111 mmol/L Carbon Dioxide Level 32 21-32 mmol/L Blood Urea Nitrogen 45 H 7-18 mg/dL Creatinine 2.1 H 0.5-1.3 mg/dL Glomerular Filtration Rate Calc 33 >90 mL/min Random Glucose 298 H 70-105 mg/dL Lactic Acid Level 1.6 0.8-2.5 mmol/L Total Calcium 7.4 L 8.5-10.1 mg/dL Total Creatine Kinase 106 # 21-232 U/L Troponin I High Sensitivity 34 4-75 ng/L B-Type Natriuretic Peptide 86 0-100 pg/mL Procalcitonin 1.19 H 0.05-0.5 ng/mL Coagulation Labs: Test 06/26/24 16:24 Range/Units Prothrombin Time 11.6 9.6-11.6 SEC Prothromb Time International Ratio 1.04 0.85-1.15 Activated Partial Thromboplast Time 30.2 26.3-35.5 SEC DIAGNOSTICS / RADIOLOGY RESULTS: [ ] PLAN Admit to medical floor with continue telemetry monitoring and aspiration pr ecaution. Monitor respiratory status closely. Continue oxygen supplementations as needed to keep SpO2 equal to 92%. Albuterol and Atrovent p.r.n. shortness of breath. Start vancomycin IV and cefepime IV. P.r.n. medications for pain management, fever, hypertension, nausea, vomiting, constipation. Head of bed elevated 45. Turn q.2 hours and p.r.n.. Wound consults. Start Nystatin oral QID. Start PEG tube feedings. Strict I&Os. Daily weights. PT OT to evaluate and treat. Renally adjust medications. Monitor renal and liver function. Monitor electrolytes and treat accordingly. Avoid nephrotoxic medications, contrast, and nonsteroid drugs. Blood pressure checks every4 hours and as needed. Glucometer checks a.c. and HS with insulin regular sliding scale coverage as needed per protocol. A.m. labs: CBC, BNP, Mag, phos, TSH, A1c GI and DVT prophylaxis: Lovenox and Protonix. Reconcile home medications once available. NEURO: Minimize central acting medications as possible. Maintain fall precautions, adequate lighting during the day PULMONARY: Supplemental 02 as needed. Maintain aspiration precautions at all times CARDIOVASCULAR: Follow hemodynamics. Vital signs per facility protocol GI & NUTRITION: Continue with nutritional support. Continue stool softeners and laxatives as needed. KIDNEYS & ELECTROLYTES: Strict monitoring of intake, output and overall fluid balance. Avoid nephrotoxic medications to the extent possible. Medications to be dosed according to renal function. Monitor electrolytes and replace as needed ENDOCRINE: Maintain blood glucose between 100-180 at all times. Hypoglycemia protocol in place INFECTIOUS DISEASE: Trend temperature, WBC and procalcitonin level Follow cultures, deescalate antibiotics as soon as possible. Panculture if new onset fever ONCOLOGY/HEMATOLOGY/COAGULATION: Monitor for s/s of bleeding Monitor hemoglobin, coagulation studies as needed SKIN: Pressure ulcer prevention per facility protocol Specialty mattress ORTHO/REHAB: Continue PT/OT Prophylaxis: Continue GI and DVT prophylaxis Code Status: Full Resuscitation Disposition: RICKY HERRMANN Jun 26, 2024 19:41
--- NOTE | 2024-06-26 19:47 | NUR ---
Konstantin LONG KAIAWHINA KOHANGA REO AND FAMILY AT BEDSIDE.
[2024-06-26 20:37] LABS: ABG BASE EXCESS 3.3 mmol/L (-2.0-3.0); ABG HCO3 25.9 mmol/L (21.0-28.0); ABG OXYGEN SATURATION 98.3 % (94.0-98.0); ABG PCO2 34 mmHg (35-48); ABG PH 7.503 (7.350-7.450); PO2, ARTERIAL BG 106.3 mmHg (83.0-108.0); VENT MODE, BG NC (ROOM AIR)
[2024-06-26] MEDS: ceFEPime HCL 1 GM VIAL IVPB SCH (20:51)
[2024-06-26] MEDS: NYSTatin 100000 UNIT/ML 5ML UDCUP PO SCH (20:51)
[2024-06-26] MEDS: INSULIN humuLIN R 100 UNIT/ML 3ML SQ SCH (21:00)
[2024-06-26] MEDS ORDERED: VANCOMYCIN PROTOCOL PER PHARMACY IV SCH (21:00)
[2024-06-26] MEDS: acetaMINOPHEN 650 MG/20.3 ML UDCUP PEG ONE (21:28)
[2024-06-26] MEDS: hydrALAZine 20MG/ML VIAL IV PRN (21:28)
[2024-06-26] MEDS: VANCOMYCIN 1.75 GM/250 ML BAG 250 ML IV ONE (21:56)
[2024-06-26 22:10] VITALS: BP 103/37; TEMP 100.1; O2SAT 100
--- NOTE | 2024-06-26 22:10 | NUR ---
Patient arrived on floor at this time. Patient noted shivering in bed. Temp 100.1 oral, blood pressure 103/37 taken on right calf area due to documented DVT to LLE. Patient had been given hydralazine 10mg IVP by Qasim LIVINGSTON from ED prior to arrival on floor. HOB elevated to 45 degrees. Ice packs provided to patient's bilateral axillae and back of neck due to Qasim LIVINGSTON also administering Tylenol prior to arrival on floor. Advised [place] MARKET RESEARCH MANAGER to recheck vitals at 2300. Patient continues on initial dose of vancomycin IV. Side rails up x2, bed in lowest setting with wheels locked in place. Call light within reach and bed alarm turned on at this time. at the beside and advised of continued monitoring of patient's vitals. verbalized understanding.
--- NOTE | 2024-06-26 23:00 | NUR ---
Vitals rechecked at this time, see vitals log. All vitals reported within limits. Patient afebrile at this time and more alert since arrival to hospital.
[2024-06-27] VITALS (16 sets, daily range): BP systolic 109–144; BP diastolic 33–61; PULSE 81–93; RESP 18–24; TEMP 98.4–100.9; O2SAT 100
[2024-06-27] MEDS ORDERED: FOLI0.8T53 PEG (02:21)
[2024-06-27] MEDS ORDERED: LEVO75 PEG (02:21)
[2024-06-27] MEDS ORDERED: LOSA25TA41 PEG (02:21)
[2024-06-27] MEDS ORDERED: RIVA2.5T PEG (02:21)
[2024-06-27] MEDS ORDERED: LIDO1ADH82 TP (02:21)
[2024-06-27] MEDS ORDERED: GUAI100S13 PEG (02:21)
[2024-06-27] MEDS ORDERED: ATOR40TA71 PEG (02:21)
[2024-06-27] MEDS ORDERED: NPH,100V11 SQ ×2 (02:21)
[2024-06-27] MEDS ORDERED: IPRA3AMP24 NEB (02:21)
[2024-06-27] MEDS ORDERED: ACET-2247 PEG (02:21)
[2024-06-27] MEDS ORDERED: CILO50TA2 PEG (02:21)
[2024-06-27] MEDS ORDERED: FAMO20TA8 PEG (02:21)
--- NOTE | 2024-06-27 02:21 | NUR ---
home medications from [facility] in [place] update on reconcile meds tab
--- NOTE | 2024-06-27 06:17 | NUR ---
RBS 331 mg/dL Per spouse at bedside: does not feel comfortable administering insulin coverage at this time due to patient not having feedings started. Voiced "I would rather wait for the feedings to be started later on today before he gets any insulin, I wouldn't want him to 'crash'". Per spouse's instructions insulin coverage held at this time.
[2024-06-27 07:05] LABS: BASOPHILS # (AUTO) 0.02 K/uL (0.00-0.20); BASOPHILS % (AUTO) 0.2 % (0.0-5.0); EOSINOPHILS # (AUTO) 0.19 K/uL (0.00-0.70); EOSINOPHILS % (AUTO) 1.8 % (0.0-8.0); HEMATOCRIT 25.1 % (42-54); IMMATURE GRANULOCYTE ABSOLUTE 0.16 K/uL (0-1); LYMPHOCYTES # (AUTO) 0.7 K/uL (1.0-4.8); LYMPHOCYTES % (AUTO) 6.4 % (21.0-51.0); MEAN CORPUSCULAR HEMOGLOBIN 28.4 pg (27.0-33.0); MEAN CORPUSCULAR HGB CONC 30.3 g/dL (32.0-36.0); MEAN CORPUSCULAR VOLUME 93.7 fL (79-99); MONOCYTES # (AUTO) 0.5 K/uL (0.1-1.0); MONOCYTES % (AUTO) 4.4 % (3.0-13.0); NEUTROPHILS # (AUTO) 8.8 K/uL (1.8-7.7); NEUTROPHILS % (AUTO) 85.6 % (40.0-77.0); PLATELET COUNT (AUTO) 115 K/uL (130-400); RED BLOOD CELL COUNT(AUTO) 2.68 MIL/uL (4.50-6.20); RED CELL DISTRIBUTION WIDTH 23.7 % (11.0-15.5); WHITE BLOOD COUNT (AUTO) 10.3 K/uL (4.8-10.8)
[2024-06-27 07:24] LABS: ALBUMIN 1.5 g/dL (3.5-5.0); BILIRUBIN,TOTAL 1.2 mg/dL (0.2-1.0); CREATININE 1.9 mg/dL (0.5-1.3); MAGNESIUM 2.4 mg/dL (1.80-2.40); PHOSPHORUS 4.2 mg/dL (2.5-4.9); THYROID STIMULATING HORMONE 24.07 uIU/mL (0.36-3.74); TOTAL PROTEIN, SERUM 5.1 g/dL (6.0-8.3)
[2024-06-27] MEDS ORDERED: CEFTRIAXONE 2GM VIAL IVPB SCH (09:00)
[2024-06-27] MEDS: ENOXAPARIN SODIUM 40 MG/0.4 ML SYRINGE SQ SCH (09:00)
[2024-06-27] MEDS: IpraTROPium/alBUTERol SULFATE 3 ML SOLUTION IH SCH (09:53)
--- NOTE | 2024-06-27 10:18 | NUR ---
Nutritional Note: Chart, meds, and labs Reviewed. Current TF Glucerna 1.5 @40ml in currently not meeting estimated nutritional needs. Recommended adjustments Recommend: -increase TF rate to 55ml/hr q 22hrs to provide 1650kcal, 70gm pro/day -Continue current H2O flush 300ml q 6 and adjust based on clinical tolerance and input/output. - Electrolyte replacements per protocol -Monitor TF tolerance, wt, and labs -If No BM >3days consider bowel stimulant. -ProStat BID (30 ml) Which will aid in wound healing. Balance protein calorie intake to promote wound healing. This provides 3.3 mg L-arginine, 15 gm protein and 100 kcal per 30 ml -Zinc Sulfate 220mg BID, Vit C 500mg BID, and MVI -Check HA1C to obtain the three-month average of blood sugar. -Check folate, iron, vit b12, and Vit D levels to rule out deficiencies. Per research low vitamin D may contribute to insulin resistance + vit. D deficiency may impair wound healing. -Nephrovite MVI combination of B vitamins may be used to treat or prevent vitamin deficiency due to poor diet. - Please notify RD if additional nutrition concerns arise. SEE RD Nutritional Assessment for additional assessment information. Addendum: 06/27/24 at [address] Amended: Links added.
[2024-06-27] MEDS: Solu-medROL 40MG VIAL IVP SCH (10:39)
--- NOTE | 2024-06-27 10:48 | PN ---
[facility] PROGRESS NOTE Date Patient Seen: Jun 27, 2024 Time of Visit: 10:37 Supervising Physician: Prince French Primary Care Physician: Dr. Huey Frank Outpatient Specialists: Inpatient Consults: Infectious disease Wound Care PROBLEM LIST: Sepsis without septic shock, POA Acute complicated cystitis, POA -Araya DRAG DOWN Large wounds to upper inner thighs, POA Aspiration pneumonia, POA Acute infectious metabolic encephalopathy, POA ANJU on CKD stage 3b, GFR 33 POA (GFR 43 on 06/22/2024. GFR 14 on 06/03/2024) Dysphagia s/p peg tube placement on 06/20/2024 Oral thrush, POA Anemia chronic disease Thrombocytopenia Debility/frailty/general body weakness Diabetes mellitus with hyperglycemia, A1c 8.5 on 06/11/24 LVEF 60-65, left ventricular diastolic dysfunction is indeterminate. Left atrium size is mildly dilated, per echo on 06/04/2024 Protein calorie malnutrition/hypoalbuminemia Chronic problem list: Remote CVA, Hypertension, hyperlipidemia, diabetes mellitus, right eye surgery History of DVT on Xarelto. (normal bilateral lower extremity venous Doppler subtle on 06/17/2024) History of DKA History of in-hospital cardiac arrest (5 minutes) on 06/06/2024 Acute hypoxemic respiratory failure intubated in 06/06/2024 and extubated on 06/15/2024 History of a Gram-negative bacteria, positive Proteus mirabilis History of liver failure with hyperbilirubinemia and thrombocytopenia History of coagulopathy with critically elevated fibrinogen level and thrombocytopenia History of TMA, right eye surgery. Peg tube placement on 06/20/2024 Plan Summary: Supplemental oxygen as needed Duo nebs every 6 hours CPT with nebs Solu-Medrol 40 mg IV every8 hours times 48 hours Vanco per pharmacy protocol Cefepime 1 g daily Follow urine and blood cultures results Obtain wound culture Obtain sputum culture Consult wound care team Continue PEG tube feedings Levothyroxine 50 mcg daily PT evaluate and treat Cm to refer to [facility] Dispo: [facility] once medically stable for discharge INTERVAL HISTORY: Mr. Blanco is a 68-year-old male with a history of a DM type 2, CVA, DVT, hypertension, CVA, with ESRD requiring dialysis who presented to [facility] ED for evaluation of general body weakness and low blood pressure per EMS. Per ED physician the patient is coming from [facility] and was sent due to concern for pulmonary congestion and fever. Per staff unknown how low the blood pressure was. Influenza and COVID are negative. Chest x-ray: Prominent interstitial markings are seen with possible superimposed infiltrates. ABGs: PH 7.543, pCO2 34, PO2 106.3, bicarbonate 25.9, O2 98.3, base excess 3.3, on2 L nasal cannula. Remarkable lab results: Hemoglobin 7.5, hematocrit 24.2, RBC 2.64, platelets 126, BUN 45, creatinine 2.1, GFR 33, blood glucose 298, total calcium 7.4, procalcitonin 1.9. UA positive for leuk EST. ED provider request patient be admitted with the diagnosis of pneumonitis, sepsis, and upper respiratory infection. I went to assess the patient at bedside in ED 11. The patient appeared chronically ill, hot to touch, eyes closed, speech is slurred, does not follow command, has tremor to his left hand. Patient's was at bedside and stated that the patient has had a previous stroke and is sometime was oriented to self and sometimes to place. She states his baseline is slurred speech, is not able to move bilateral lower extremity, and has some movement to upper extremities. She stated that the patient has thrush, indwelling Araya that was placed in the hospital and has not been changed. She is requesting water for patient to moist his mouth. had multiple questions which were addressed by me. I informed the of labs, diagnostics, and plan of care. Education done on dysphagia and aspiration precautions. She verbalizes understanding and is in agreement with the plan. Plan and assessment are listed below. 06/07 - patient is seen and evaluated at the bedside. Patient is accompanied by his . Patient is seen sitting up in bed continues to be weak, debilitated, deconditioned secondary to previous stroke. Patient is awake and alert and oriented times. Patient was treated with broad-spectrum antibiotics overnight and as per chart, patient continue with low-grade temperature. Labs show anemia with an H&H of 7.6 x 25.1. Patient's TSH is quite elevated at 24.07. We will resume patient's levothyroxine. Patient's urine culture is positive for UTI. Patient's chest x-ray shows superimposed infiltrates. Patient was resumed back on his PEG tube feedings and thus far tolerating well. On exam patient was no chaitanya to have some mild scattered wheezing. Instructed nursing to give a short course of high-dose steroids and duo nebs scheduled times 24 hours. We will repeat a chest x-ray in a.m.. REVIEW OF SYSTEMS: Unable to obtain ROS from patient due to AMS PHYSICAL EXAM: GENERAL: Weak, awake oriented x 1, chronically ill-appearing HEENT: EOMI, Sclera non icteric, moist mucosa NECK: Supple, no JVD, trachea midline LUNGS: Diminished, breath sounds bilaterally. No wheezes HEART: Regular rate and rhythm. Normal S1 and S2, without murmurs ABD: Abdomen soft, nontender. Bowel sounds present. : Araya in place. SKIN: Large wounds yellowish in color with erythema to inner thighs. EXT: No clubbing cyanosis or edema. Bilateral TMA. NEURO: Oriented to person, does not follow command. Speech is clear slurred, unable to move lower extremities, limited upper extremities movement at baseline per . Vital Signs (last 8hr) Date Time Temp Pulse Resp B/P (MAP) Pulse Ox O2 Delivery O2 Flow Rate FiO2 06/27/24 09:57 81 24 N/Cannula Low lpm 3.0 32 06/27/24 09:55 81 24 06/27/24 08:59 88 20 131/55 100 Nasal Cannula 1.0 22 06/27/24 08:00 98.4 85 20 144/61 100 Nasal Cannula 1.0 22 06/27/24 04:00 99.1 83 19 126/40 100 Room Air LABS: Hematology Labs: Test 06/27/24 06:52 Range/Units White Blood Count 10.3 4.8-10.8 K/uL Red Blood Count 2.68 L 4.50-6.20 MIL/uL Hemoglobin 7.6 L 14.0-18.0 g/dL Hematocrit 25.1 L 42-54 % Mean Corpuscular Volume 93.7 79-99 fL Mean Corpuscular Hemoglobin 28.4 27.0-33.0 pg Mean Corpuscular Hemoglobin Concent 30.3 L 32.0-36.0 g/dL Red Cell Distribution Width 23.7 H 11.0-15.5 % Platelet Count 115 L 130-400 K/uL Mean Platelet Volume 10.3 7.5-10.5 fL Immature Granulocyte % (Auto) 1.6 H 0-1 % Neutrophils (%) (Auto) 85.6 H 40.0-77.0 % Lymphocytes (%) (Auto) 6.4 L 21.0-51.0 % Monocytes (%) (Auto) 4.4 3.0-13.0 % Eosinophils (%) (Auto) 1.8 0.0-8.0 % Basophils (%) (Auto) 0.2 0.0-5.0 % Neutrophils # (Auto) 8.8 H 1.8-7.7 K/uL Lymphocytes # (Auto) 0.7 L 1.0-4.8 K/uL Monocytes # (Auto) 0.5 0.1-1.0 K/uL Eosinophils # (Auto) 0.19 0.00-0.70 K/uL Basophils # (Auto) 0.02 0.00-0.20 K/uL Absolute Immature Granulocyte (auto 0.16 0-1 K/uL Nucleated Red Blood Cells 0.0 0.0-0.19 % Chemistry Labs: Test 06/27/24 06:52 06/27/24 06:12 06/26/24 16:24 Range/Units Sodium Level 147 H 136-145 mmol/L Potassium Level 5.0 3.5-5.1 mmol/L Chloride Level 114 H 101-111 mmol/L Carbon Dioxide Level 25 21-32 mmol/L Blood Urea Nitrogen 42 H 7-18 mg/dL Creatinine 1.9 H 0.5-1.3 mg/dL Glomerular Filtration Rate Calc 37 >90 mL/min Random Glucose 341 H 70-105 mg/dL Total Calcium 7.7 L 8.5-10.1 mg/dL Phosphorus Level 4.2 2.5-4.9 mg/dL Magnesium Level 2.40 1.80-2.40 mg/dL Total Bilirubin 1.2 H 0.2-1.0 mg/dL Aspartate Amino Transf (AST/SGOT) 34 10-37 U/L Alanine Aminotransferase (ALT/SGPT) 34 12-78 U/L Alkaline Phosphatase 237 H 50-136 U/L Total Protein 5.1 L 6.0-8.3 g/dL Albumin 1.5 L 3.5-5.0 g/dL Thyroid Stimulating Hormone (TSH) 24.07 #H 0.36-3.74 uIU/mL Whole Blood Glucose 331 H 70-110 MG/DL Lactic Acid Level 1.6 0.8-2.5 mmol/L Total Creatine Kinase 106 # 21-232 U/L Troponin I High Sensitivity 34 4-75 ng/L B-Type Natriuretic Peptide 86 0-100 pg/mL Procalcitonin 1.19 H 0.05-0.5 ng/mL Coagulation Labs: Test 06/26/24 16:24 Range/Units Prothrombin Time 11.6 9.6-11.6 SEC Prothromb Time International Ratio 1.04 0.85-1.15 Activated Partial Thromboplast Time 30.2 26.3-35.5 SEC DIAGNOSTICS / RADIOLOGY RESULTS: PATIENT: TYRON BLANCO MR#: [id number] : 1955 SEX: M AGE: 68 LOCATION: [facility] ORDER 26 STATUS: [facility] REPORT#: [id number] SERVICE 25 REASON: FEVER ORDERING PHYSICIAN: HARIKA ESPINOZA MD PROCEDURE: CXR1VW - CHEST 1VW CHEST 1VW HISTORY: Fever COMPARISON: 06/19/2024 FINDINGS: A frontal projection of the chest was obtained. Prominent interstitial markings are seen with possible superimposed infiltrates. The heart is normal in size. Degenerative changes are seen. No evidence of aortic calcification is seen. IMPRESSION: 1. Prominent interstitial markings are seen with possible superimposed infiltrates. DICTATED BY: MADISON RENEE MD DATE: 06/26/241809 ELECTRONICALLY SIGNED BY: MADISON RENEE MD DATE: 06/26/241814 PLAN Admit to medical floor with continue telemetry monitoring and aspiration precaution. Monitor respiratory status closely. Continue oxygen supplementations as needed to keep SpO2 equal to 92%. Albuterol and Atrovent p.r.n. shortness of breath. Start vancomycin IV and cefepime IV. P.r.n. medications for pain management, fever, hypertension, nausea, vomiting, constipation. Head of bed elevated 45. Turn q.2 hours and p.r.n.. Wound consults. Start Nystatin oral QID. Start PEG tube feedings. Strict I&Os. Daily weights. PT OT to evaluate and treat. Renally adjust medications. Monitor renal and liver function. Monitor electrolytes and treat accordingly. Avoid nephrotoxic medications, contrast, and nonsteroid drugs. Blood pressure checks every4 hours and as needed. Glucometer checks a.c. and HS with insulin regular sliding scale coverage as needed per protocol. A.m. labs: CBC, BNP, Mag, phos, TSH, A1c GI and DVT prophylaxis: Lovenox and Protonix. Reconcile home medications once available. NEURO: Minimize central acting medications as possible. Maintain fall precautions, adequate lighting during the day PULMONARY: Supplemental 02 as needed. Maintain aspiration precautions at all times CARDIOVASCULAR: Follow hemodynamics. Vital signs per facility protocol GI & NUTRITION: Continue with nutritional support. Continue stool softeners and laxatives as needed. KIDNEYS & ELECTROLYTES: Strict monitoring of intake, output and overall fluid balance. Avoid nephrotoxic medications to the extent possible. Medications to be dosed according to renal function. Monitor electrolytes and replace as needed ENDOCRINE: Maintain blood glucose between 100-180 at all times. Hypoglycemia protocol in place INFECTIOUS DISEASE: Trend temperature, WBC and procalcitonin level Follow cultures, deescalate antibiotics as soon as possible. Panculture if new onset fever ONCOLOGY/HEMATOLOGY/COAGULATION: Monitor for s/s of bleeding Monitor hemoglobin, coagulation studies as needed SKIN: Pressure ulcer prevention per facility protocol Specialty mattress ORTHO/REHAB: Continue PT/OT Prophylaxis: Continue GI and DVT prophylaxis Code Status: Full Resuscitation Disposition: [facility] once medically stable for discharge. ATTESTATION BY PHYSICIAN I reviewed the documentation, medical decision making, and treatment plan as noted by the mid-level provider above. I agree with the findings and plan of care. Zaid French MD, ECTOR N NP Jun 27, 2024 10:48
[2024-06-27] MEDS: furoSEMIDE 40MG VIAL IV SCH (11:22)
--- NOTE | 2024-06-27 13:20 | NUR ---
TUBE FEEDING STARTED PER [facility] EXPERIENCE COORDINATOR RECOMMENDATIONS.
[2024-06-27] MEDS ORDERED: PHARMACY COMMUNICATION MISC SCH (14:00)
--- NOTE | 2024-06-27 14:28 | NUR ---
[facility] Consult: Patient assessed by wound healing team. See wound assessment. Assessment and recommendations provided to primary nurse. Education provided. Wound care done. Addendum: 06/27/24 at 1623 by BRADLY KEARNEY RN RN/ Amended: Links added.
--- NOTE | 2024-06-27 15:57 | NUR ---
DCP Pt in bed eyes closed, spouse Edel Blanco [phone] at bedside. States pt was previously at [facility] and does not want pt to go back there. Pt has PEG tube that was placed this month spouse verbalizes would like to go to [facility] if additional services needed. Addendum: 06/27/24 at 1606 by DENISE RICHARDSON RN CM Amended: Links added.
[2024-06-27] MEDS: BACITRACIN 28.4 GM OINT TP ONE (16:30)
--- NOTE | 2024-06-27 16:33 | CONS ---
CONSULTATION NOTE Date of Service: Jun 27, 2024 Reason for Consultation: [ blisters bilateral lower extremities, abrasion left foearm.] Requesting Physician: [Hospitalist ] HISTORY OF PRESENT ILLNESS: [06/27/24 68 yo male presented to ED on 06/26/24 for hypotension, fever, weakness. Patient is seen and evaluated at the bedside. Patient is accompanied by his . Patient is seen sitting up in bed continues to be weak, debilitated, deconditioned secondary to previous stroke. Patient is awake and alert and o riented times. Pt presists with blisters bilateral lower extremities, abrasion left foearm. Primary nurse Job and at bedside. ] REVIEW OF SYSTEMS answered for patient CONSTITUTIONAL: Denies chills, Positive for fever and fatigue. HEAD/FACE: No signs of trauma. EENT: Denies eye pain, blurred vision, double vision, or light sensitivity. RESPIRATORY: Denies shortness of breath, cough, wheezing CARDIOVASCULAR: Denies chest pain, palpitation, syncope GASTROINTESTINAL/ABDOMINAL: Denies abdominal pain, constipation, diarrhea, nausea or vomiting GENITOURINARY: Denies dysuria or hematuria. MUSCULOSKELETAL: Denies joint pain, tenderness, or trauma. INTEGUMENTARY: Denies rash or itchiness ; blisters bilateral lower extremities, abrasion left foearm. NEUROLOGICAL/PSYCH: Denies anxiety, depression, heat or cold intolerance. PAST MEDICAL HISTORY: [Diabetes-Type II, DVT, Hypertension, Stroke, BLOOD CLOT IN RIGHT LEG, ] PAST SURGICAL HISTORY: [BILATERAL TMA ] PAST SOCIAL HISTORY: [ ] FAMILY HISTORY: [ ] Coded Allergies: aspirin (Unverified Allergy, Unknown, 04/25/22) PHYSICAL EXAM EYES: Anicteric. Pupils equal and reactive. HENT: No oral thrush seen, moist Oral mucosa NECK: Supple, no JVD or thyromegaly. LUNGS: Good air entry. No rales, no rhonchi. CARDIOVASCULAR: S1, S2 regular. No murmur heard. ABDOMEN: Soft, non tender, bowel sounds present, no organomegaly CENTRAL NERVOUS SYSTEM: Awake, alert, oriented x 3. No focal deficits. SKIN: No rashes, no swelling. Bilateral blisters to lower extremities, abrasion of left forearm LYMPHATICS: No peripheral lymphadenopathy MUSCULOSKELETAL: No joint swelling, erythema or tenderness. EXTREMITIES: No cyanosis or clubbing BACK: No deformity, no pressure ulcer. GENITOURINARY: No dysuria or hematuria Vital Sign (Last 24 Hours) 06/27/24 16:00 Temp 99.9 Pulse 87 Resp 20 B/P (MAP) 109/50 Pulse Ox 100 O2 Delivery Nasal Cannula O2 Flow Rate 1.0 FiO2 22 Intake & Output (last 24hrs) 06/26/24 06/26/24 06/27/24 15:00 23:00 07:00 Output Total 1420 ml Balance -1420 ml LABS: Laboratory: Test 06/27/24 12:58 06/27/24 12:31 06/27/24 06:52 06/26/24 20:36 Range/Units Whole Blood Glucose 383 H 70-110 MG/DL Bedside Glucose Comment Notified Nurse White Blood Count 10.3 4.8-10.8 K/uL Red Blood Count 2.68 L 4.50-6.20 MIL/uL Hemoglobin 7.6 L 14.0-18.0 g/dL Hematocrit 25.1 L 42-54 % Mean Corpuscular Volume 93.7 79-99 fL Mean Corpuscular Hemoglobin 28.4 27.0-33.0 pg Mean Corpuscular Hemoglobin Concent 30.3 L 32.0-36.0 g/dL Red Cell Distribution Width 23.7 H 11.0-15.5 % Platelet Count 115 L 130-400 K/uL Mean Platelet Volume 10.3 7.5-10.5 fL Immature Granulocyte % (Auto) 1.6 H 0-1 % Neutrophils (%) (Auto) 85.6 H 40.0-77.0 % Lymphocytes (%) (Auto) 6.4 L 21.0-51.0 % Monocytes (%) (Auto) 4.4 3.0-13.0 % Eosinophils (%) (Auto) 1.8 0.0-8.0 % Basophils (%) (Auto) 0.2 0.0-5.0 % Neutrophils # (Auto) 8.8 H 1.8-7.7 K/uL Lymphocytes # (Auto) 0.7 L 1.0-4.8 K/uL Monocytes # (Auto) 0.5 0.1-1.0 K/uL Eosinophils # (Auto) 0.19 0.00-0.70 K/uL Basophils # (Auto) 0.02 0.00-0.20 K/uL Absolute Immature Granulocyte (auto 0.16 0-1 K/uL Nucleated Red Blood Cells 0.0 0.0-0.19 % Sodium Level 147 H 136-145 mmol/L Potassium Level 5.0 3.5-5.1 mmol/L Chloride Level 114 H 101-111 mmol/L Carbon Dioxide Level 25 21-32 mmol/L Blood Urea Nitrogen 42 H 7-18 mg/dL Creatinine 1.9 H 0.5-1.3 mg/dL Glomerular Filtration Rate Calc 37 >90 mL/min Random Glucose 341 H 70-105 mg/dL Total Calcium 7.7 L 8.5-10.1 mg/dL Phosphorus Level 4.2 2.5-4.9 mg/dL Magnesium Level 2.40 1.80-2.40 mg/dL Total Bilirubin 1.2 H 0.2-1.0 mg/dL Aspartate Amino Transf (AST/SGOT) 34 10-37 U/L Alanine Aminotransferase (ALT/SGPT) 34 12-78 U/L Alkaline Phosphatase 237 H 50-136 U/L Total Protein 5.1 L 6.0-8.3 g/dL Albumin 1.5 L 3.5-5.0 g/dL Thyroid Stimulating Hormone (TSH) 24.07 #H 0.36-3.74 uIU/mL Blood Gas Specimen Type Arterial Arterial Blood pH 7.503 H 7.350-7.450 Arterial Blood Partial Pressure CO2 34 L 35-48 mmHg Arterial Blood Partial Pressure O2 106.3 83.0-108.0 mmHg Arterial Blood HCO3 25.9 21.0-28.0 mmol/L Arterial Blood Oxygen Saturation 98.3 H 94.0-98.0 % Arterial Blood Base Excess 3.3 H -2.0-3.0 mmol/L Blood Gas Temperature 37.0 35.5-37.0 CELSIUS Blood Gas Flow-by 2.00 0.00-15.00 L/min Blood Gas Vent Mode NC ROOM AIR FiO2 28.0 % Blood Gas Specimen Comment RB RN OKSANA Test 06/26/24 17:44 06/26/24 16:24 06/26/24 16:23 Range/Units Urine Color YELLOW YELLOW Urine Appearance HAZY CLEAR Urine pH 7.0 5.0-8.0 Urine Specific [place] 1.019 1.001-1.031 Urine Protein 30 H NEGATIVE mg/dL Urine Glucose (UA) >=1000 H NEGATIVE mg/dL Urine Ketones NEGATIVE NEGATIVE mg/dL Urine Occult Blood SMALL H NEGATIVE Urine Nitrate NEGATIVE NEGATIVE Urine Bilirubin NEGATIVE NEGATIVE mg/dL Urine Urobilinogen 0.2 0.2-1.0 mg/dL Urine Leukocyte Esterase 500 H NEGATIVE Abhijeet/uL Urine RBC 26-50 H 0-1 /HPF Urine WBC 26-50 H 0-1 /HPF Urine Bacteria RARE None Seen /HPF Urine Yeast MANY None Seen /HPF Prothrombin Time 11.6 9.6-11.6 SEC Prothromb Time International Ratio 1.04 0.85-1.15 Activated Partial Thromboplast Time 30.2 26.3-35.5 SEC Lactic Acid Level 1.6 0.8-2.5 mmol/L Total Creatine Kinase 106 # 21-232 U/L Troponin I High Sensitivity 34 4-75 ng/L B-Type Natriuretic Peptide 86 0-100 pg/mL Procalcitonin 1.19 H 0.05-0.5 ng/mL Influenza Type A Antigen Negative For Type A NEGATIVE Influenza Type B Antigen Negative For Type B NEGATIVE SARS-CoV-2, RNA, NAAT NEGATIVE SARS CoV-2 NEGATIVE DIAGNOSTICS / RADIOLOGY: [ ] PROBLEM LIST : Medical Problems: (1) Pneumonitis ICD Codes: J98.4 - Other disorders of lung (2) Sepsis ICD Codes: A41.9 - Sepsis, unspecified organism (3) URI (upper respiratory infection) ICD Codes: J06.9 - Acute upper respiratory infection, unspecified Blisters bilateral lower extremities, abrasion left forearm PLAN: [ Pressure ulcer prevention per facility protocol Skinprep to bilateral lower extremities Iodine to left forearm abrasion ] BIRGIT ABREU Jun 27, 2024 16:33
--- NOTE | 2024-06-27 17:39 | CONS ---
DATE: 06/27/2024 INFECTIOUS DISEASE CONSULTATION REQUESTING PHYSICIAN: JUN Nuñez REASON FOR CONSULTATION: Sepsis. HISTORY OF PRESENT ILLNESS: This is a 68-year-old male with history of hypertension, CVA, blindness, diabetes mellitus, was brought to the Emergency Room with fever and generalized body weakness. The patient was a transfer [facility] with above complaint. In the ER, the patient was found to have severe sepsis. T-max was 101. Urinalysis was positive. WBC was 15, leukocyte esterase of 500. Chest x-ray shows prominent interstitial markings. The patient has been started on vancomycin and cefepime. No documented diarrhea or abdominal pain. PAST MEDICAL HISTORY: * CVA. * Hypertension. * Diabetes mellitus. * Dyslipidemia. * DVT. PAST SURGICAL HISTORY: * Right eye blindness. * ____ bilateral transmetatarsal amputation. ALLERGIES: ASPIRIN. HOME MEDICATIONS: Reviewed, include: * Vancomycin. * Solu-Medrol. * Cefepime. * Lactulose. * Tylenol. SOCIAL HISTORY: The patient lives at the [facility]. No alcohol, tobacco or illicit drug use. FAMILY HISTORY: Positive for diabetes mellitus. REVIEW OF SYSTEMS: Available history obtained from medical record. The patient at present is encephalopathic, not able to give good history. PHYSICAL EXAMINATION: GENERAL: Elderly male, ill looking. VITAL SIGNS: Temperature 98.8, pulse 90, respiration 20, BP 137/52. EYES: No icterus. Blind in right eye. HENT: No oral thrush seen. Moist oral mucosa. NECK: Supple, no JVD or thyromegaly. LUNGS: Good air entry. No rales, no rhonchi. CARDIOVASCULAR: S1, S2 regular. No murmur heard. ABDOMEN: Full, soft, nontender. Bowel sound is present. CENTRAL NERVOUS SYSTEM: The patient is awake, bedbound debility. SKIN: No rashes, no jaundice. LYMPHATIC: No peripheral lymphadenopathy. BACK: No deformity, no pressure ulcer. EXTREMITIES: Ulcer with slough involving lateral aspect of both thighs. LABORATORY DATA: Procalcitonin 1.19. Sodium 147, potassium 5.0, BUN 42, creatinine 1.9. WBC 10.3, hemoglobin 7.6, platelet 115. Urine culture growing Gram-negative eliseo. RADIOLOGY: Chest x-ray result reviewed. ASSESSMENT: A 68-year-old male with multiple problems which include: * Gram-negative sepsis. * Urinary tract infection. * Bilateral thigh ulcer. * Chronic renal failure. * Right eye blindness. * Hypertension. * Diabetes mellitus. PLAN: * Follow up cultures. * Continue cefepime. * Continue vancomycin. * Continue DVT prophylaxis. * Continue antidiabetic. * Continue antiemetic. * Monitor electrolytes. * Antibiotic will be adjusted when cultures are updated or finalized. Thank you for allowing me to participate in the care of this patient. TID: [id number] RECEIPT: [id number] MTDD
[2024-06-27] MEDS ORDERED: INSULIN humuLIN R 100 UNIT/ML 3ML SQ SCH (19:00)
[2024-06-27] MEDS: VANCOMYCIN 750MG VIAL IVPB SCH (20:50)
[2024-06-27] MEDS: ZINC OXIDE OINT 30GM TUBE TP SCH (20:50)
[2024-06-27] MEDS: INSULIN GLARgine 100 UNITS/ML 10 ML VIAL SQ SCH (21:12)
[2024-06-27] MEDS: INSULIN humuLIN R 100 UNIT/ML 3ML SQ SCH (23:42)
--- NOTE | 2024-06-27 23:42 | NUR ---
RBS 409 mg/dL Patient's blood sugar covered with 16 units of humulin R subcutaneous to left arm as per insulin sliding scale.
[2024-06-28] VITALS (13 sets, daily range): BP systolic 109–149; BP diastolic 36–80; PULSE 82–99; RESP 18–24; TEMP 98.8–99.9; O2SAT 97–99
--- NOTE | 2024-06-28 01:10 | NUR ---
RBS 410 mg/dL Spouse at bedside requested to have patient's blood sugar taken at this time. Patient noted in bed. HOB elevated to 45 degrees. Respirations even and unlabored. Spouse requesting to give novolog N which she had at the bedside. Advised there is no order to have the patient given this insulin during this admission. Advised will contact [facility] team for recommendations.
--- NOTE | 2024-06-28 01:30 | NUR ---
Refused medication Spouse refused for patient to receive solumedrol 40 mg IVP. States "No it will increase his blood sugar even more".
--- NOTE | 2024-06-28 01:43 | NUR ---
Contacted [facility]. Spoke with Kati BARAHONA and advised her of patient's high blood sugar readings and coverage of 16 units of humulin R. As per Peter BARAHONA: give 22 units of humulin R subcutaneous now and increase insulin sliding scale #2 every 6 hours due to NPO status. Orders noted and carried out.
--- NOTE | 2024-06-28 02:01 | NUR ---
Patient administered 22 units of humulin R to left arm at this time per PEDIATRIC SPORTS MEDICINE SPECIALIST recommendations. Spouse was advised of increase in insulin sliding scale and next scheduled dose of Lantus 10 units at 0730. Spouse verbalized understanding.
[2024-06-28] MEDS: INSULIN humuLIN R 100 UNIT/ML 3ML SQ ONE (02:02)
--- NOTE | 2024-06-28 03:00 | NUR ---
RBS 376 mg/dL Patient's blood sugar was taken at this time. Patient noted resting in bed. Respirations even and unlabored. No signs or symptoms of distress or discomfort noted at this time.
[2024-06-28 05:11] LABS: HEMATOCRIT 24.7 % (42-54); IMMATURE GRANULOCYTE ABSOLUTE 0.07 K/uL (0-1); LYMPHOCYTES # (AUTO) 0.6 K/uL (1.0-4.8); LYMPHOCYTES % (AUTO) 5.9 % (21.0-51.0); MEAN CORPUSCULAR HEMOGLOBIN 28.5 pg (27.0-33.0); MEAN CORPUSCULAR HGB CONC 30.4 g/dL (32.0-36.0); MEAN CORPUSCULAR VOLUME 93.9 fL (79-99); MONOCYTES # (AUTO) 0.4 K/uL (0.1-1.0); MONOCYTES % (AUTO) 3.6 % (3.0-13.0); NEUTROPHILS # (AUTO) 9.2 K/uL (1.8-7.7); NEUTROPHILS % (AUTO) 89.8 % (40.0-77.0); PLATELET COUNT (AUTO) 131 K/uL (130-400); RED BLOOD CELL COUNT(AUTO) 2.63 MIL/uL (4.50-6.20); RED CELL DISTRIBUTION WIDTH 21.8 % (11.0-15.5); WHITE BLOOD COUNT (AUTO) 10.2 K/uL (4.8-10.8)
[2024-06-28 05:23] LABS: CREATININE 2.1 mg/dL (0.5-1.3); POTASSIUM 4.4 mmol/L (3.5-5.1)
[2024-06-28] MEDS: levoTHYROxine 50 MCG TABLET PO SCH (06:36)
[2024-06-28] MEDS: INSULIN humuLIN R 100 UNIT/ML 3ML SQ SCH (06:38)
--- NOTE | 2024-06-28 09:23 | HMCIMG ---
Exam Type: CHEST 1VW Clinical Information: pneumonia Comparison: June 26, 2024 Findings: Pulmonary pattern is as before. No worrisome interval changes have taken place. Impression: Stable exam.
[2024-06-28] MEDS: BACITRACIN 1 EACH PACKET TP ONE ×2 (10:01→12:39)
[2024-06-28] MEDS: ZINC OXIDE OINT 30GM TUBE TP SCH (12:40)
--- NOTE | 2024-06-28 14:58 | PN ---
INFECTIOUS DISEASE PROGRESS NOTE Date of Service: Jun 28, 2024 SUBJECTIVE: This is a 68-year-old male patient who was seen and examined at bedside in room 317. Patient is is awake, alert and able to answer basic questions. No drainage observe from bilateral thigh ulcers. We will follow up on the wound cultures. WBC is 10.1 this morning and a temperature of 99.9. Patient has been started on Meropenem. Patient's visiting at bedside and questions answered. No reports of nausea or vomiting. PHYSICAL EXAM EYES: Anicteric. Pupils equal and reactive. HENT: No oral thrush seen, moist Oral mucosa NECK: Supple, no JVD or thyromegaly. LUNGS: Good air entry. No rales, no rhonchi. Oxygen support. CARDIOVASCULAR: S1, S2 regular. No murmur heard. ABDOMEN: Soft, non tender, bowel sounds present, no organomegaly. Peg tube. CENTRAL NERVOUS SYSTEM: Awake, alert, oriented x 3. SKIN: No rashes, no swelling. LYMPHATICS: No peripheral lymphadenopathy MUSCULOSKELETAL: No joint swelling, erythema or tenderness. EXTREMITIES: No cyanosis or clubbing. Bilateral inner thigh ulcers. BACK: No deformity, no pressure ulcer. GENITOURINARY: No dysuria or hematuria Vital Sign (Last 12 Hours) 06/28/24 06/28/24 06/28/24 06/28/24 03:29 06:49 06:49 07:00 Temp 99.7 Pulse 90 84 84 87 Resp 18 B/P (MAP) 127/36 Pulse Ox 99 O2 Delivery Nasal Cannula N/Cannula Low lpm N/A Room Air O2 Flow Rate 1.0 1.0 FiO2 06/28/24 06/28/24 06/28/24 06/28/24 08:00 08:24 11:21 11:24 Temp 99.9 Pulse 94 82 82 Resp 18 22 22 B/P (MAP) 109/80 Pulse Ox 99 96 O2 Delivery Room Air* Room Air N/A Room Air O2 Flow Rate 0 FiO2 21 06/28/24 11:59 Temp 98.8 Pulse 83 Resp 18 B/P (MAP) 122/40 Pulse Ox 99 O2 Delivery Room Air Intake & Output (last 24hrs) 06/27/24 06/27/24 06/28/24 15:00 23:00 07:00 Intake Total 0 ml Output Total 2000 ml Balance -2000 ml LABS: Laboratory: Test 06/28/24 11:08 06/28/24 05:03 06/28/24 00:56 06/27/24 06:52 Range/Units Whole Blood Glucose 219 H 70-110 MG/DL White Blood Count 10.2 4.8-10.8 K/uL Red Blood Count 2.63 L 4.50-6.20 MIL/uL Hemoglobin 7.5 L 14.0-18.0 g/dL Hematocrit 24.7 L 42-54 % Mean Corpuscular Volume 93.9 79-99 fL Mean Corpuscular Hemoglobin 28.5 27.0-33.0 pg Mean Corpuscular Hemoglobin Concent 30.4 L 32.0-36.0 g/dL Red Cell Distribution Width 21.8 H 11.0-15.5 % Platelet Count 131 130-400 K/uL Mean Platelet Volume 10.7 H 7.5-10.5 fL Immature Granulocyte % (Auto) 0.7 0-1 % Neutrophils (%) (Auto) 89.8 H 40.0-77.0 % Lymphocytes (%) (Auto) 5.9 L 21.0-51.0 % Monocytes (%) (Auto) 3.6 3.0-13.0 % Eosinophils (%) (Auto) 0.0 0.0-8.0 % Basophils (%) (Auto) 0.0 0.0-5.0 % Neutrophils # (Auto) 9.2 H 1.8-7.7 K/uL Lymphocytes # (Auto) 0.6 L 1.0-4.8 K/uL Monocytes # (Auto) 0.4 0.1-1.0 K/uL Eosinophils # (Auto) 0.00 0.00-0.70 K/uL Basophils # (Auto) 0.00 0.00-0.20 K/uL Absolute Immature Granulocyte (auto 0.07 0-1 K/uL Nucleated Red Blood Cells 0.0 0.0-0.19 % Sodium Level 151 H 136-145 mmol/L Potassium Level 4.4 3.5-5.1 mmol/L Chloride Level 115 H 101-111 mmol/L Carbon Dioxide Level 30 21-32 mmol/L Blood Urea Nitrogen 61 H 7-18 mg/dL Creatinine 2.1 H 0.5-1.3 mg/dL Glomerular Filtration Rate Calc 33 >90 mL/min Random Glucose 389 H 70-105 mg/dL Total Calcium 7.7 L 8.5-10.1 mg/dL Bedside Glucose Comment Notified Nurse Phosphorus Level 4.2 2.5-4.9 mg/dL Magnesium Level 2.40 1.80-2.40 mg/dL Total Bilirubin 1.2 H 0.2-1.0 mg/dL Aspartate Amino Transf (AST/SGOT) 34 10-37 U/L Alanine Aminotransferase (ALT/SGPT) 34 12-78 U/L Alkaline Phosphatase 237 H 50-136 U/L Total Protein 5.1 L 6.0-8.3 g/dL Albumin 1.5 L 3.5-5.0 g/dL Thyroid Stimulating Hormone (TSH) 24.07 #H 0.36-3.74 uIU/mL Test 06/26/24 20:36 06/26/24 17:44 06/26/24 16:24 06/26/24 16:23 Range/Units Blood Gas Specimen Type Arterial Arterial Blood pH 7.503 H 7.350-7.450 Arterial Blood Partial Pressure CO2 34 L 35-48 mmHg Arterial Blood Partial Pressure O2 106.3 83.0-108.0 mmHg Arterial Blood HCO3 25.9 21.0-28.0 mmol/L Arterial Blood Oxygen Saturation 98.3 H 94.0-98.0 % Arterial Blood Base Excess 3.3 H -2.0-3.0 mmol/L Blood Gas Temperature 37.0 35.5-37.0 CELSIUS Blood Gas Flow-by 2.00 0.00-15.00 L/min Blood Gas Vent Mode NC ROOM AIR FiO2 28.0 % Blood Gas Specimen Comment RB RN OKSANA Urine Color YELLOW YELLOW Urine Appearance HAZY CLEAR Urine pH 7.0 5.0-8.0 Urine Specific [place] 1.019 1.001-1.031 Urine Protein 30 H NEGATIVE mg/dL Urine Glucose (UA) >=1000 H NEGATIVE mg/dL Urine Ketones NEGATIVE NEGATIVE mg/dL Urine Occult Blood SMALL H NEGATIVE Urine Nitrate NEGATIVE NEGATIVE Urine Bilirubin NEGATIVE NEGATIVE mg/dL Urine Urobilinogen 0.2 0.2-1.0 mg/dL Urine Leukocyte Esterase 500 H NEGATIVE Abhijeet/uL Urine RBC 26-50 H 0-1 /HPF Urine WBC 26-50 H 0-1 /HPF Urine Bacteria RARE None Seen /HPF Urine Yeast MANY None Seen /HPF Prothrombin Time 11.6 9.6-11.6 SEC Prothromb Time International Ratio 1.04 0.85-1.15 Activated Partial Thromboplast Time 30.2 26.3-35.5 SEC Lactic Acid Level 1.6 0.8-2.5 mmol/L Total Creatine Kinase 106 # 21-232 U/L Troponin I High Sensitivity 34 4-75 ng/L B-Type Natriuretic Peptide 86 0-100 pg/mL Procalcitonin 1.19 H 0.05-0.5 ng/mL Influenza Type A Antigen Negative For Type A NEGATIVE Influenza Type B Antigen Negative For Type B NEGATIVE SARS-CoV-2, RNA, NAAT NEGATIVE SARS CoV-2 NEGATIVE ASSESSMENT: Urinary tract infection. Bilateral thigh ulcers. Diabetes mellitus. Right eye blindness. Anemia. Chronic renal failure PLAN: Continue Meropenem. Continue oxygen support. Continue bronchodilators. Continue monitoring blood sugar levels. Continue wound care as recommended by the wound care team. Will Monitor electrolytes. Antibiotics to be adjusted when culture is updated or finalized. This case was reviewed and discussed with my supervising physician and the above assessment and plan was formulated and agreed upon. ATTESTATION BY PHYSICIAN I have seen and examined the patient. I reviewed the documentation, medical decision making, and treatment plan as noted by the mid-level provider above. I agree with the findings and plan of care. HECTOR FINLEY MD, [facility] Jun 28, 2024 14:58
--- NOTE | 2024-06-28 17:48 | PN ---
[facility] PROGRESS NOTE Date Patient Seen: Jun 28, 2024 Time of Visit: 17:48 Supervising Physician: [Dr. Sue] Primary Care Physician: Dr. 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 GFR 14 on 06/03/2024) Dysphagia s/p peg tube placement on 06/20/2024 Oral thrush, POA Anemia chronic disease Thrombocytopenia Debility/frailty/general body weakness Diabetes mellitus with hyperglycemia, A1c 8.5 on 06/11/24 LVEF 60-65, left ventricular diastolic dysfunction is indeterminate. Left atriu m size is mildly dilated, per echo on 06/04/2024 Protein calorie malnutrition/hypoalbuminemia Chronic problem list: Remote CVA, Hypertension, hyperlipidemia, diabetes mellitus, right eye surgery History of DVT on Xarelto. (normal bilateral lower extremity venous Doppler subtle on 06/17/2024) History of DKA History of in-hospital cardiac arrest (5 minutes) on 06/06/2024 Acute hypoxemic respiratory failure intubated in 06/06/2024 and extubated on 06/15/2024 History of a Gram-negative bacteria, positive Proteus mirabilis History of liver failure with hyperbilirubinemia and thrombocytopenia History of coagulopathy with critically elevated fibrinogen level and thrombocytopenia History of TMA, right eye surgery. Peg tube placement on 06/20/2024 Plan Summary: Obtain wound culture Start 1/2 NS fluids DC lasix Discontinue cefepime and vanco Start merrem Supplemental oxygen as needed Duo nebs every 6 hours CPT with nebs Solu-Medrol 40 mg IV every8 hours times 48 hours Follow urine and blood cultures results Obtain sputum culture Consult wound care team Continue PEG tube feedings, free water flushes of 350 Q4H Levothyroxine 50 mcg daily PT evaluate and treat Cm to refer to [facility] Dispo: [facility] once medically stable for discharge INTERVAL HISTORY: Mr. Blanco is a 68-year-old male with a history of a DM type 2, CVA, DVT, hypertension, CVA, with ESRD requiring dialysis who presented to [facility] ED for evaluation of general body weakness and low blood pressure per EMS. Per ED physician the patient is coming from [facility] and was sent due to concern for pulmonary congestion and fever. Per staff unknown how low the blood pressure was. Influenza and COVID are negative. Chest x-ray: Prominent interstitial markings are seen with possible superimposed infiltrates. ABGs: PH 7.543, pCO2 34, PO2 106.3, bicarbonate 25.9, O2 98.3, base excess 3.3, on2 L nasal cannula. Remarkable lab results: Hemoglobin 7.5, hematocrit 24.2, RBC 2.64, platelets 126, BUN 45, creatinine 2.1, GFR 33, blood glucose 298, total calcium 7.4, procalcitonin 1.9. UA positive for leuk EST. ED provider request patient be admitted with the diagnosis of pneumonitis, sepsis, and upper respiratory infection. I went to assess the patient at bedside in ED 11. The patient appeared chronically ill, hot to touch, eyes closed, speech is slurred, does not follow command, has tremor to his left hand. Patient's was at bedside and stated that the patient has had a previous stroke and is sometime was oriented to self and sometimes to place. She states his baseline is slurred speech, is not able to move bilateral lower extremity, and has some movement to upper extremities. She stated that the patient has thrush, indwelling Araya that was placed in the hospital and has not been changed. She is requesting water for patient to moist his mouth. had multiple questions which were addressed by me. I informed the of labs, diagnostics, and plan of care. Education done on dysphagia and aspiration precautions. She verbalizes understanding and is in agreement with the plan. Plan and assessment are listed below. 06/07 - patient is seen and evaluated at the bedside. Patient is accompanied by his . Patient is seen sitting up in bed continues to be weak, debilitated, deconditioned secondary to previous stroke. Patient is awake and alert and oriented times. Patient was treated with broad-spectrum antibiotics overnight and as per chart, patient continue with low-grade temperature. Labs show anemia with an H&H of 7.6 x 25.1. Patient's TSH is quite elevated at 24.07. We will resume patient's levothyroxine. Patient's urine culture is positive for UTI. Patient's chest x-ray shows superimposed infiltrates. Patient was resumed back on his PEG tube feedings and thus far tolerating well. On exam patient was noted to have some mild scattered wheezing. Instructed nursing to give a short course of high-dose steroids and duo nebs scheduled times 24 hours. We will repeat a chest x-ray in a.m.. 06/28 Pt is evaluated at bed. He is awake, alert, and oriented but appears weak and chronically ill. His labs reveal hypernatremia at 1:51 a.m. a mildly elevated creatinine of 2.1, with a baseline of 1.8 on 06/16 his pro count was elevated at 1.19, lactic acid is 1.6. His UA was positive for leukocyte esterase. Blood, urine cultures are negative, MRSA screen negative. He has extensive ulcerations to lower extremities which are presumably bed-bound sores, wound care is following. His white count has remained within normal limits, he continues on cefepime vancomycin. REVIEW OF SYSTEMS: Unable to obtain ROS from patient due to AMS PHYSICAL EXAM: GENERAL: Weak, awake oriented x 1, chronically ill-appearing HEENT: EOMI, Sclera non icteric, moist mucosa NECK: Supple, no JVD, trachea midline LUNGS: Diminished, breath sounds bilaterally. No wheezes HEART: Regular rate and rhythm. Normal S1 and S2, without murmurs ABD: Abdomen soft, nontender. Bowel sounds present. : Araya in place. SKIN: Large wounds yellowish in color with erythema to inner thighs. EXT: No clubbing cyanosis or edema. Bilateral TMA. NEURO: Oriented to person, does not follow command. Speech is clear slurred, unable to move lower extremities, limited upper extremities movement at baseline per . Vital Signs (last 8hr) Date Time Temp Pulse Resp B/P (MAP) Pulse Ox O2 Delivery O2 Flow Rate FiO2 06/28/24 17:15 99.0 84 18 149/63 97 Room Air 06/28/24 11:59 98.8 83 18 122/40 99 Room Air 06/28/24 11:24 82 22 N/A Room Air 21 06/28/24 11:21 82 22 LABS: Hematology Labs: Test 06/28/24 05:03 Range/Units White Blood Count 10.2 4.8-10.8 K/uL Red Blood Count 2.63 L 4.50-6.20 MIL/uL Hemoglobin 7.5 L 14.0-18.0 g/dL Hematocrit 24.7 L 42-54 % Mean Corpuscular Volume 93.9 79-99 fL Mean Corpuscular Hemoglobin 28.5 27.0-33.0 pg Mean Corpuscular Hemoglobin Concent 30.4 L 32.0-36.0 g/dL Red Cell Distribution Width 21.8 H 11.0-15.5 % Platelet Count 131 130-400 K/uL Mean Platelet Volume 10.7 H 7.5-10.5 fL Immature Granulocyte % (Auto) 0.7 0-1 % Neutrophils (%) (Auto) 89.8 H 40.0-77.0 % Lymphocytes (%) (Auto) 5.9 L 21.0-51.0 % Monocytes (%) (Auto) 3.6 3.0-13.0 % Eosinophils (%) (Auto) 0.0 0.0-8.0 % Basophils (%) (Auto) 0.0 0.0-5.0 % Neutrophils # (Auto) 9.2 H 1.8-7.7 K/uL Lymphocytes # (Auto) 0.6 L 1.0-4.8 K/uL Monocytes # (Auto) 0.4 0.1-1.0 K/uL Eosinophils # (Auto) 0.00 0.00-0.70 K/uL Basophils # (Auto) 0.00 0.00-0.20 K/uL Absolute Immature Granulocyte (auto 0.07 0-1 K/uL Nucleated Red Blood Cells 0.0 0.0-0.19 % Chemistry Labs: Test 06/28/24 16:06 06/28/24 05:03 06/28/24 00:56 06/27/24 06:52 Range/Units Whole Blood Glucose 242 H 70-110 MG/DL Sodium Level 151 H 136-145 mmol/L Potassium Level 4.4 3.5-5.1 mmol/L Chloride Level 115 H 101-111 mmol/L Carbon Dioxide Level 30 21-32 mmol/L Blood Urea Nitrogen 61 H 7-18 mg/dL Creatinine 2.1 H 0.5-1.3 mg/dL Glomerular Filtration Rate Calc 33 >90 mL/min Random Glucose 389 H 70-105 mg/dL Total Calcium 7.7 L 8.5-10.1 mg/dL Bedside Glucose Comment Notified Nurse Phosphorus Level 4.2 2.5-4.9 mg/dL Magnesium Level 2.40 1.80-2.40 mg/dL Total Bilirubin 1.2 H 0.2-1.0 mg/dL Aspartate Amino Transf (AST/SGOT) 34 10-37 U/L Alanine Aminotransferase (ALT/SGPT) 34 12-78 U/L Alkaline Phosphatase 237 H 50-136 U/L Total Protein 5.1 L 6.0-8.3 g/dL Albumin 1.5 L 3.5-5.0 g/dL Thyroid Stimulating Hormone (TSH) 24.07 #H 0.36-3.74 uIU/mL DIAGNOSTICS / RADIOLOGY RESULTS: Reviewed PLAN NEURO: Minimize central acting medications as possible. Maintain fall precautions, adequate lighting during the day PULMONARY: Supplemental 02 as needed. Maintain aspiration precautions at all times CARDIOVASCULAR: Follow hemodynamics. Vital signs per facility protocol GI & NUTRITION: Continue with nutritional support. Continue stool softeners and laxatives as needed. KIDNEYS & ELECTROLYTES: Strict monitoring of intake, output and overall fluid balance. Avoid nephrotoxic medications to the extent possible. Medications to be dosed according to renal function. Monitor electrolytes and replace as needed ENDOCRINE: Maintain blood glucose between 100-180 at all times. Hypoglycemia protocol in place INFECTIOUS DISEASE: Trend temperature, WBC and procalcitonin level Follow cultures, deescalate antibiotics as soon as possible. Panculture if new onset fever ONCOLOGY/HEMATOLOGY/COAGULATION: Monitor for s/s of bleeding Monitor hemoglobin, coagulation studies as needed SKIN: Pressure ulcer prevention per facility protocol Specialty mattress ORTHO/REHAB: Continue PT/OT Prophylaxis: Continue GI and DVT prophylaxis Code Status: Full Resuscitation Disposition: [facility] once medically stable for discharge. SALLIE SHIELDS Jun 28, 2024 17:48
[2024-06-28] MEDS ORDERED: MEROPENEM 1 GM in 0.9%NACL 100ML 100 ML IV SCH (18:00)
[2024-06-28] MEDS: 1/2 NS 1000ML 1,000 ML IV SCH (20:32)
[2024-06-28] MEDS: MEROPENEM 1 GM VIAL IVPB SCH (20:32)
[2024-06-28] MEDS: INSULIN GLARgine 100 UNITS/ML 10 ML VIAL SQ SCH (20:34)
[2024-06-28] MEDS: acetaMINOPHEN 325 MG TAB PO PRN (20:34)
[2024-06-29] VITALS (13 sets, daily range): BP systolic 120–146; BP diastolic 39–76; PULSE 86–98; RESP 17–20; TEMP 97.2–100.5; O2SAT 99
[2024-06-29] MEDS: LOPERAMIDE 1 MG/7.5 ML UDCUP PO ONE
--- NOTE | 2024-06-29 02:25 | NUR ---
Spouse refused for patient to receive solumedrol 40 mg IVP.
[2024-06-29 04:53] LABS: HEMATOCRIT 23.7 % (42-54); IMMATURE GRANULOCYTE ABSOLUTE 0.09 K/uL (0-1); LYMPHOCYTES # (AUTO) 0.5 K/uL (1.0-4.8); MEAN CORPUSCULAR HEMOGLOBIN 28.1 pg (27.0-33.0); MEAN CORPUSCULAR HGB CONC 30.4 g/dL (32.0-36.0); MEAN CORPUSCULAR VOLUME 92.6 fL (79-99); MONOCYTES # (AUTO) 0.4 K/uL (0.1-1.0); MONOCYTES % (AUTO) 3.9 % (3.0-13.0); NEUTROPHILS # (AUTO) 9.1 K/uL (1.8-7.7); NEUTROPHILS % (AUTO) 90.2 % (40.0-77.0); PLATELET COUNT (AUTO) 130 K/uL (130-400); RED BLOOD CELL COUNT(AUTO) 2.56 MIL/uL (4.50-6.20); RED CELL DISTRIBUTION WIDTH 21.3 % (11.0-15.5); WHITE BLOOD COUNT (AUTO) 10.1 K/uL (4.8-10.8)
[2024-06-29 05:59] LABS: WBC MORPHOLOGY CONSISTENT W/DIFF
[2024-06-29] MEDS ORDERED: INSULIN GLARgine 100 UNITS/ML 10 ML VIAL SQ SCH (09:00)
--- NOTE | 2024-06-29 10:21 | PN ---
[facility] PROGRESS NOTE Date Patient Seen: Jun 29, 2024 Time of Visit: 10:06 Supervising Physician: [Dr. Sue] Primary Care Physician: Dr. Huey Frank Outpatient Specialists: Inpatient Consults: Infectious disease Wound Care PROBLEM LIST: Sepsis without septic shock, POA Acute complicated cystitis, POA -Araya [employer] Large wounds to upper inner thighs, POA Aspiration pneumonia, POA Acute infectious metabolic encephalopathy, POA Acute hypernatremia, Na-153 ANJU on CKD stage 3b, GFR 33 POA (GFR 43 on 06/22/2024. GFR 14 on 06/03/2024) Dysphagia s/p peg tube placement on 06/20/2024 Oral thrush, POA Anemia chronic disease Thrombocytopenia Debility/frailty/general body weakness Diabetes mellitus with hyperglycemia, A1c 8.5 on 06/11/24 LVEF 60-65, left ventricular diastolic dysfunction is indeterminate. Left atrium size is mildly dilated, per echo on 06/04/2024 Protein calorie malnutrition/hypoalbuminemia Chronic problem list: Remote CVA, Hypertension, hyperlipidemia, diabetes mellitus, right eye surgery History of DVT on Xarelto. (normal bilateral lower extremity venous Doppler subtle on 06/17/2024) History of DKA History of in-hospital cardiac arrest (5 minutes) on 06/06/2024 Acute hypoxemic respiratory failure intubated in 06/06/2024 and extubated on 06/15/2024 History of a Gram-negative bacteria, positive Proteus mirabilis History of liver failure with hyperbilirubinemia and thrombocytopenia History of coagulopathy with critically elevated fibrinogen level and thrombocytopenia History of TMA, right eye surgery. Peg tube placement on 06/20/2024 Plan Summary: Discontinue solumedrol Pending wound culture, continue wound care Continue 1/2 NS fluids, unable to use D5 to correct Na+ d/t hyperglycemia Continue merrem Supplemental oxygen as needed Duo nebs every 6 hours CPT with nebs Follow urine and blood cultures results Obtain sputum culture Consult wound care team Continue PEG tube feedings, free water flushes of 350 Q4H Levothyroxine 50 mcg daily PT evaluate and treat Cm to refer to [facility] Dispo: [facility] once medically stable for discharge INTERVAL HISTORY: Mr. Blanco is a 68-year-old male with a history of a DM type 2, CVA, DVT, hypertension, CVA, with ESRD requiring dialysis who presented to [facility] ED for evaluation of general body weakness and low blood pressure per EMS. Per ED physician the patient is coming from [facility] and was sent due to concern for pulmonary congestion and fever. Per staff unknown how low the blood pressure was. Influenza and COVID are negative. Chest x-ray: Prominent interstitial markings are seen with possible superimposed infiltrates. ABGs: PH 7.543, pCO2 34, PO2 106.3, bicarbonate 25.9, O2 98.3, base excess 3.3, on2 L nasal cannula. Remarkable lab results: Hemoglobin 7.5, hematocrit 24.2, RBC 2.64, platelets 126, BUN 45, creatinine 2.1, GFR 33, blood glucose 298, total calcium 7.4, procalcitonin 1.9. UA positive for leuk EST. ED provider request patient be admitted with the diagnosis of pneumonitis, sepsis, and upper respiratory infection. I went to assess the patient at bedside in ED 11. The patient appeared chronically ill, hot to touch, eyes closed, speech is slurred, does not follow command, has tremor to his left hand. Patient's was at bedside and stated that the patient has had a previous stroke and is sometime was oriented to self and sometimes to place. She states his baseline is slurred speech, is not able to move bilateral lower extremity, and has some movement to upper extremities. She stated that the patient has thrush, indwelling Araya that was placed in the hospital and has not been changed. She is requesting water for patient to moist his mouth. had multiple questions which were addressed by me. I informed the of labs, diagnostics, and plan of care. Education done on dysphagia and aspiration precautions. She verbalizes understanding and is in agreement with the plan. Plan and assessment are listed below. 06/07 - patient is seen and evaluated at the bedside. Patient is accompanied by his . Patient is seen sitting up in bed continues to be weak, debilitated, deconditioned secondary to previous stroke. Patient is awake and alert and oriented times. Patient was treated with broad-spectrum antibiotics overnight and as per chart, patient continue with low-grade temperature. Labs show anemia with an H&H of 7.6 x 25.1. Patient's TSH is quite elevated at 24.07. We will resume patient's levothyroxine. Patient's urine culture is positive for UTI. Patient's chest x-ray shows superimposed infiltrates. Patient was resumed back on his PEG tube feedings and thus far tolerating well. On exam patient was noted to have some mild scattered wheezing. Instructed nursing to give a short course of high-dose steroids and duo nebs scheduled times 24 hours. We will repeat a chest x-ray in a.m.. 06/28 Pt is evaluated at bed. He is awake, alert, and oriented but appears weak and chronically ill. His labs reveal hypernatremia at 1:51 a.m. a mildly elevated creatinine of 2.1, with a baseline of 1.8 on 06/16 his pro count was elevated at 1.19, lactic acid is 1.6. His UA was positive for leukocyte esterase. Blood, urine cultures are negative, MRSA screen negative. He has extensive ulcerations to lower extremities which are presumably bed-bound sores, wound care is following. His white count has remained within normal limits, he continues on cefepime vancomycin. 06/29 blood pressure is 129/55 with a heart rate of 95. Patient had fever overnight of 100.6 F, now improved at 97.2 F. Had 1325 mL of urine output overnight with the same negative net fluid balance. Per nursing note, patient's refused for patient to receive Solu-Medrol. His WBC remains normal at 10, hemoglobin 7.2, platelets 130. His sodium is elevated at 153, potassium 4.0, creatinine is 2.0. His blood sugar has ranged from 200 to 300s overnight., somewhat improved from yesterday. His blood cultures negative times 48 hours, urine culture is positive for 50 K 200 K CFUs, pending final results. MRSA screen is negative. Patient continues on meropenem. He is feeling slightly improved from yesterday, but is still weak and chronically ill. REVIEW OF SYSTEMS: Unable to obtain ROS from patient due to AMS PHYSICAL EXAM: GENERAL: Weak, awake oriented x 1, chronically ill-appearing HEENT: EOMI, Sclera non icteric, moist mucosa NECK: Supple, no JVD, trachea midline LUNGS: Diminished, breath sounds bilaterally. No wheezes HEART: Regular rate and rhythm. Normal S1 and S2, without murmurs ABD: Abdomen soft, nontender. Bowel sounds present. : Araya in place. SKIN: Large wounds yellowish in color with erythema to inner thighs. EXT: No clubbing cyanosis or edema. Bilateral TMA. NEURO: Oriented to person, does not follow command. Speech is clear slurred, unable to move lower extremities, limited upper extremities movement at baseline per . Vital Signs (last 8hr) Date Time Temp Pulse Resp B/P (MAP) Pulse Ox O2 Delivery O2 Flow Rate FiO2 06/29/24 08:31 97.2 95 17 129/55 99 Room Air 06/29/24 07:03 86 20 N/A Room Air 21 06/29/24 07:00 86 20 06/29/24 04:00 100.6 93 18 129/59 98 Room Air 06/29/24 03:41 100.6 LABS: Hematology Labs: Test 06/29/24 04:45 Range/Units White Blood Count 10.1 4.8-10.8 K/uL Red Blood Count 2.56 L 4.50-6.20 MIL/uL Hemoglobin 7.2 L 14.0-18.0 g/dL Hematocrit 23.7 L 42-54 % Mean Corpuscular Volume 92.6 79-99 fL Mean Corpuscular Hemoglobin 28.1 27.0-33.0 pg Mean Corpuscular Hemoglobin Concent 30.4 L 32.0-36.0 g/dL Red Cell Distribution Width 21.3 H 11.0-15.5 % Platelet Count 130 130-400 K/uL Mean Platelet Volume 11.2 H 7.5-10.5 fL Immature Granulocyte % (Auto) 0.9 0-1 % Neutrophils (%) (Auto) 90.2 H 40.0-77.0 % Lymphocytes (%) (Auto) 5.0 L 21.0-51.0 % Monocytes (%) (Auto) 3.9 3.0-13.0 % Eosinophils (%) (Auto) 0.0 0.0-8.0 % Basophils (%) (Auto) 0.0 0.0-5.0 % Neutrophils # (Auto) 9.1 H 1.8-7.7 K/uL Lymphocytes # (Auto) 0.5 L 1.0-4.8 K/uL Monocytes # (Auto) 0.4 0.1-1.0 K/uL Eosinophils # (Auto) 0.00 0.00-0.70 K/uL Basophils # (Auto) 0.00 0.00-0.20 K/uL Absolute Immature Granulocyte (auto 0.09 0-1 K/uL Nucleated Red Blood Cells 0.0 0.0-0.19 % White Cell Morphology Comment CONSISTENT W/DIFF Red Blood Cell Morphology See comments Chemistry Labs: Test 06/29/24 05:16 06/29/24 04:45 06/28/24 00:56 Range/Units Whole Blood Glucose 315 H 70-110 MG/DL Sodium Level 153 H 136-145 mmol/L Potassium Level 4.0 3.5-5.1 mmol/L Chloride Level 117 H 101-111 mmol/L Carbon Dioxide Level 28 21-32 mmol/L Blood Urea Nitrogen 65 H 7-18 mg/dL Creatinine 2.0 H 0.5-1.3 mg/dL Glomerular Filtration Rate Calc 35 >90 mL/min Random Glucose 362 H 70-105 mg/dL Total Calcium 7.6 L 8.5-10.1 mg/dL Bedside Glucose Comment Notified Nurse DIAGNOSTICS / RADIOLOGY RESULTS: [Reviewed] PLAN NEURO: Minimize central acting medications as possible. Maintain fall precautions, adequate lighting during the day PULMONARY: Supplemental 02 as needed. Maintain aspiration precautions at all times CARDIOVASCULAR: Follow hemodynamics. Vital signs per facility protocol GI & NUTRITION: Continue with nutritional support. Continue stool softeners and laxatives as needed. KIDNEYS & ELECTROLYTES: Strict monitoring of intake, output and overall fluid balance. Avoid nephrotoxic medications to the extent possible. Medications to be dosed according to renal function. Monitor electrolytes and replace as needed ENDOCRINE: Maintain blood glucose between 100-180 at all times. Hypoglycemia protocol in place INFECTIOUS DISEASE: Trend temperature, WBC and procalcitonin level Follow cultures, deescalate antibiotics as soon as possible. Panculture if new onset fever ONCOLOGY/HEMATOLOGY/COAGULATION: Monitor for s/s of bleeding Monitor hemoglobin, coagulation studies as needed SKIN: Pressure ulcer prevention per facility protocol Specialty mattress ORTHO/REHAB: Continue PT/OT Prophylaxis: Continue GI and DVT prophylaxis Code Status: Full Resuscitation Disposition: [facility] once medically stable for discharge. SALLIE SHIELDS Jun 29, 2024 10:21
[2024-06-29 10:38] LABS: CREATININE 1.9 mg/dL (0.5-1.3); POTASSIUM 4.1 mmol/L (3.5-5.1)
[2024-06-29] MEDS: BACITRACIN 28.4 GM OINT TP SCH (11:51)
[2024-06-29 11:52] LABS: ABG BASE EXCESS 3.4 mmol/L (-2.0-3.0); ABG HCO3 25.8 mmol/L (21.0-28.0); ABG OXYGEN SATURATION 97.3 % (94.0-98.0); ABG PCO2 33 mmHg (35-48); ABG PH 7.514 (7.350-7.450); DEVICE COMMENT RR AMY RN; PO2, ARTERIAL BG 84.8 mmHg (83.0-108.0); VENT MODE, BG RA (ROOM AIR)
[2024-06-29] MEDS: INSULIN GLARgine 100 UNITS/ML 10 ML VIAL SQ SCH (21:07)
[2024-06-29 22:09] LABS: CREATININE 1.8 mg/dL (0.5-1.3); POTASSIUM 3.9 mmol/L (3.5-5.1)
--- NOTE | 2024-06-29 23:52 | PN ---
INFECTIOUS DISEASE PROGRESS NOTE Date of Service: Jun 29, 2024 SUBJECTIVE: This is a 68-year-old male patient who was seen and examined at bedside room 317. Patient is is awake, alert and able to answer basic questions. Patient had a low-grade fever of 100.6 earlier this morning, current temperature however is 97.7. We will follow up on the final cultures results. Patient continue on Meropenem. Will continue to follow patient's care. PHYSICAL EXAM EYES: Anicteric. Pupils equal and reactive. 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 HENT: No oral thrush seen, moist Oral mucosa NECK: Supple, no JVD or thyromegaly. LUNGS: Good air entry. No rales, no rhonchi. Oxygen support. CARDIOVASCULAR: S1, S2 regular. No murmur heard. ABDOMEN: Soft, non tender, bowel sounds present, no organomegaly. Peg tube. CENTRAL NERVOUS SYSTEM: Awake, alert, oriented x 3. SKIN: No rashes, no swelling. LYMPHATICS: No peripheral lymphadenopathy MUSCULOSKELETAL: No joint swelling, erythema or tenderness. EXTREMITIES: No cyanosis or clubbing. Bilateral inner thigh ulcers. BACK: No deformity, no pressure ulcer. GENITOURINARY: No dysuria or hematuria. Vital Sign (Last 12 Hours) 06/29/24 06/29/24 06/29/24 06/29/24 12:13 15:58 18:28 19:46 Temp 97.7 97.7 97.3 Pulse 91 97 92 98 Resp 17 17 19 18 B/P (MAP) 135/68 146/76 120/53 Pulse Ox 97 99 100 O2 Delivery Room Air Room Air Room Air 06/29/24 23:21 Pulse 98 Resp 19 Intake & Output (last 24hrs) 0 06/28/24 06/28/24 06/29/24 15:00 23:00 07:00 Intake Total 0 ml 0 ml Output Total 600 ml 725 ml Balance 0 ml -600 ml -725 ml LABS: Laboratory: Test 06/29/24 21:44 06/29/24 18:01 06/29/24 11:50 06/29/24 04:45 Range/Units Sodium Level 151 H 136-145 mmol/L Potassium Level 3.9 3.5-5.1 mmol/L Chloride Level 116 H 101-111 mmol/L Carbon Dioxide Level 28 21-32 mmol/L Blood Urea Nitrogen 65 H 7-18 mg/dL Creatinine 1.8 H 0.5-1.3 mg/dL Glomerular Filtration Rate Calc 40 >90 mL/min Random Glucose 348 H 70-105 mg/dL Total Calcium 7.4 L 8.5-10.1 mg/dL Whole Blood Glucose 342 H 70-110 MG/DL Blood Gas Specimen Type Arterial Arterial Blood pH 7.514 H 7.350-7.450 Arterial Blood Partial Pressure CO2 33 L 35-48 mmHg Arterial Blood Partial Pressure O2 84.8 83.0-108.0 mmHg Arterial Blood HCO3 25.8 21.0-28.0 mmol/L Arterial Blood Oxygen Saturation 97.3 94.0-98.0 % Arterial Blood Base Excess 3.4 H -2.0-3.0 mmol/L Blood Gas Temperature 37.0 35.5-37.0 CELSIUS Blood Gas Vent Mode RA ROOM AIR FiO2 21.0 % Blood Gas Specimen Comment RR CHAVO RN White Blood Count 10.1 4.8-10.8 K/uL Red Blood Count 2.56 L 4.50-6.20 MIL/uL Hemoglobin 7.2 L 14.0-18.0 g/dL Hematocrit 23.7 L 42-54 % Mean Corpuscular Volume 92.6 79-99 fL Mean Corpuscular Hemoglobin 28.1 27.0-33.0 pg Mean Corpuscular Hemoglobin Concent 30.4 L 32.0-36.0 g/dL Red Cell Distribution Width 21.3 H 11.0-15.5 % Platelet Count 130 130-400 K/uL Mean Platelet Volume 11.2 H 7.5-10.5 fL Immature Granulocyte % (Auto) 0.9 0-1 % Neutrophils (%) (Auto) 90.2 H 40.0-77.0 % Lymphocytes (%) (Auto) 5.0 L 21.0-51.0 % Monocytes (%) (Auto) 3.9 3.0-13.0 % Eosinophils (%) (Auto) 0.0 0.0-8.0 % Basophils (%) (Auto) 0.0 0.0-5.0 % Neutrophils # (Auto) 9.1 H 1.8-7.7 K/uL Lymphocytes # (Auto) 0.5 L 1.0-4.8 K/uL Monocytes # (Auto) 0.4 0.1-1.0 K/uL Eosinophils # (Auto) 0.00 0.00-0.70 K/uL Basophils # (Auto) 0.00 0.00-0.20 K/uL Absolute Immature Granulocyte (auto 0.09 0-1 K/uL Nucleated Red Blood Cells 0.0 0.0-0.19 % White Cell Morphology Comment CONSISTENT W/DIFF Red Blood Cell Morphology See comments Test 06/28/24 00:56 Range/Units Bedside Glucose Comment Notified Nurse ASSESSMENT: Urinary tract infection. Bilateral thigh ulcers. Diabetes mellitus. Right eye blindness. Anemia. Chronic renal failure PLAN: Continue Meropenem. Continue oxygen support. We will follow up on the cultures. Continue bronchodilators. Continue monitoring blood sugar levels. Continue wound care as recommended by the wound care team. Continue nutritional support, currently on tube feedings with Glucerna. Will Monitor electrolytes. This case was reviewed and discussed with my supervising physician and the above assessment and plan was formulated and agreed upon. ATTESTATION BY PHYSICIAN I have seen and examined the patient. I reviewed the documentation, medical decision making, and treatment plan as noted by the mid-level provider above. I agree with the findings and plan of care. HECTOR FINLEY MD, [facility] Jun 29, 2024 23:52
[2024-06-30] VITALS (14 sets, daily range): BP systolic 116–151; BP diastolic 54–77; PULSE 76–98; RESP 16–20; TEMP 97.4–99.1; O2SAT 95–100
[2024-06-30] MEDS: LOPERAMIDE 1 MG/7.5 ML UDCUP PO ONE (00:03)
[2024-06-30] MEDS: LOPERAMIDE 1 MG/7.5 ML UDCUP ONE (00:04)
[2024-06-30] MEDS: LOPERAMIDE 1 MG/7.5 ML UDCUP PO PRN (05:11)
[2024-06-30 05:28] LABS: HEMATOCRIT 24.1 % (42-54); IMMATURE GRANULOCYTE ABSOLUTE 0.13 K/uL (0-1); LYMPHOCYTES # (AUTO) 0.8 K/uL (1.0-4.8); LYMPHOCYTES % (AUTO) 7.5 % (21.0-51.0); MEAN CORPUSCULAR HEMOGLOBIN 28.1 pg (27.0-33.0); MEAN CORPUSCULAR HGB CONC 30.3 g/dL (32.0-36.0); MEAN CORPUSCULAR VOLUME 92.7 fL (79-99); MONOCYTES # (AUTO) 0.7 K/uL (0.1-1.0); MONOCYTES % (AUTO) 6.4 % (3.0-13.0); NEUTROPHILS # (AUTO) 8.8 K/uL (1.8-7.7); NEUTROPHILS % (AUTO) 84.9 % (40.0-77.0); PLATELET COUNT (AUTO) 139 K/uL (130-400); RED CELL DISTRIBUTION WIDTH 21.4 % (11.0-15.5); WHITE BLOOD COUNT (AUTO) 10.4 K/uL (4.8-10.8)
[2024-06-30 05:50] LABS: ALBUMIN 1.5 g/dL (3.5-5.0); BILIRUBIN,TOTAL 0.8 mg/dL (0.2-1.0); CREATININE 1.6 mg/dL (0.5-1.3); TOTAL PROTEIN, SERUM 5.1 g/dL (6.0-8.3)
[2024-06-30] MEDS: INSULIN GLARgine 100 UNITS/ML 10 ML VIAL SQ SCH (09:57)
--- NOTE | 2024-06-30 10:59 | PN ---
[facility] PROGRESS NOTE Date Patient Seen: Jun 30, 2024 Time of Visit: 10:50 Supervising Physician: [Dr. Sue] Primary Care Physician: Dr. 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 GFR 14 on 06/03/2024) Dysphagia s/p peg tube placement on 06/20/2024 Oral thrush, POA Anemia chronic disease Thrombocytopenia Debility/frailty/general body weakness Diabetes mellitus with hyperglycemia, A1c 8.5 on 06/11/24 LVEF 60-65, left ventricular diastolic dysfunction is indeterminate. Left atrium size is mildly dilated, per echo on 06/04/2024 Protein calorie malnutrition/hypoalbuminemia Chronic problem list: Remote CVA, Hypertension, hyperlipidemia, diabetes mellitus, right eye surgery History of DVT on Xarelto. (normal bilateral lower extremity venous Doppler subtle on 06/17/2024) History of DKA History of in-hospital cardiac arrest (5 minutes) on 06/06/2024 Acute hypoxemic respiratory failure intubated in 06/06/2024 and extubated on 06/15/2024 History of a Gram-negative bacteria, positive Proteus mirabilis History of liver failure with hyperbilirubinemia and thrombocytopenia History of coagulopathy with critically elevated fibrinogen level and thrombocytopenia History of TMA, right eye surgery. Peg tube placement on 06/20/2024 Plan Summary: Switch to D5W from 07/07, Monitor sodium, repeat labs in AM Discontinue solumedrol Pending wound culture, continue wound care Continue merrem Supplemental oxygen as needed Duo nebs every 6 hours CPT with nebs Follow urine and blood cultures results Obtain sputum culture Consult wound care team Continue PEG tube feedings, free water flushes of 350 Q4H Levothyroxine 50 mcg daily PT evaluate and treat Cm to refer to [facility] Dispo: [facility] once medically stable for discharge INTERVAL HISTORY: Mr. Blanco is a 68-year-old male with a history of a DM type 2, CVA, DVT, hypertension, CVA, with ESRD requiring dialysis who presented [place] [facility] for evaluation of general body weakness and low blood pressure per EMS. Per ED physician the patient is coming from [facility] and was sent due to concern for pulmonary congestion and fever. Per staff unknown how low the blood pressure was. Influenza and COVID are negative. Chest x-ray: Prominent interstitial markings are seen with possible superimposed infiltrates. ABGs: PH 7.543, pCO2 34, PO2 106.3, bicarbonate 25.9, O2 98.3, base excess 3.3, on2 L nasal cannula. Remarkable lab results: Hemoglobin 7.5, hematocrit 24.2, RBC 2.64, platelets 126, BUN 45, creatinine 2.1, GFR 33, blood glucose 298, total calcium 7.4, procalcitonin 1.9. UA positive for leuk EST. ED provider request patient be admitted with the diagnosis of pneumonitis, sepsis, and upper respiratory infection. I went to assess the patient at bedside in ED 11. The patient appeared chronically ill, hot to touch, eyes closed, speech is slurred, does not follow command, has tremor to his left hand. Patient's was at bedside and stated that the patient has had a previous stroke and is sometime was oriented to self and sometimes to place. She states his baseline is slurred speech, is not able to move bilateral lower extremity, and has some movement to upper extremities. She stated that the patient has thrush, indwelling Araya that was placed in the hospital and has not been changed. She is requesting water for patient to moist his mouth. had multiple questions which were addressed by me. I informed the of labs, diagnostics, and plan of care. Education done on dysphagia and aspiration precautions. She verbalizes understanding and is in agreement with the plan. Plan and assessment are listed below. 06/07 - patient is seen and evaluated at the bedside. Patient is accompanied by his . Patient is seen sitting up in bed continues to be weak, debilitated, deconditioned secondary to previous stroke. Patient is awake and alert and oriented times. Patient was treated with broad-spectrum antibiotics overnight and as per chart, patient continue with low-grade temperature. Labs show anemia with an H&H of 7.6 x 25.1. Patient's TSH is quite elevated at 24.07. We will resume patient's levothyroxine. Patient's urine culture is positive for UTI. Patient's chest x-ray shows superimposed infiltrates. Patient was resumed back on his PEG tube feedings and thus far tolerating well. On exam patient was noted to have some mild scattered wheezing. Instructed nursing to give a short course of high-dose steroids and duo nebs scheduled times 24 hours. We will repeat a chest x-ray in a.m.. 06/28 Pt is evaluated at bed. He is awake, alert, and oriented but appears weak and chronically ill. His labs reveal hypernatremia at 1:51 a.m. a mildly elevated creatinine of 2.1, with a baseline of 1.8 on 06/16 his pro count was elevated at 1.19, lactic acid is 1.6. His UA was positive for leukocyte esterase. Blood, urine cultures are negative, MRSA screen negative. He has extensive ulcerations to lower extremities which are presumably bed-bound sores, wound care is following. His white count has remained within normal limits, he continues on cefepime vancomycin. 06/29 blood pressure is 129/55 with a heart rate of 95. Patient had fever overnight of 100.6 F, now improved at 97.2 F. Had 1325 mL of urine output overnight with the same negative net fluid balance. Per nursing note, patient's refused for patient to receive Solu-Medrol. His WBC remains normal at 10, hemoglobin 7.2, platelets 130. His sodium is elevated at 153, potassium 4.0, creatinine is 2.0. His blood sugar has ranged from 200 to 300s overnight., somewhat improved from yesterday. His blood cultures negative times 48 hours, urine culture is positive for 50 K 200 K CFUs, pending final results. MRSA screen is negative. Patient continues on meropenem. He is feeling slightly improved from yesterday, but is still weak and chronically ill. 06/30 blood pressure is 133/56 with a heart rate of 86, afebrile room air. No documented fevers overnight. Urine output was 1900 mL overnight with a net fluid balance of 460 mL. WBCs 10, hemoglobin 7.3, platelets improved to 139. His sodium remains elevated at 153, he has been on half NS for the same. His creatinine is much improved from 2.1-1.6. His alkaline phosphatase is elevated at 315, AST at 45 and ALT at 81. Albumin is low at 1.5. His wound culture is positive for Cindy albicans, negative for anaerobes, pending final result. Blood sugars much improved to 188 today. No cough or phlegm production. REVIEW OF SYSTEMS: Unable to obtain ROS from patient due to AMS PHYSICAL EXAM: GENERAL: Weak, awake oriented x 1, chronically ill-appearing HEENT: EOMI, Sclera non icteric, moist mucosa NECK: Supple, no JVD, trachea midline LUNGS: Diminished, breath sounds bilaterally. No wheezes HEART: Regular rate and rhythm. Normal S1 and S2, without murmurs ABD: Abdomen soft, nontender. Bowel sounds present. : Araya in place. SKIN: Large wounds yellowish in color with erythema to inner thighs. EXT: No clubbing cyanosis or edema. Bilateral TMA. NEURO: Oriented to person, does not follow command. Speech is clear slurred, unable to move lower extremities, limited upper extremities movement at baseline per . Vital Signs (last 8hr) Date Time Temp Pulse Resp B/P (MAP) Pulse Ox O2 Delivery O2 Flow Rate FiO2 06/30/24 08:00 99.0 86 16 133/56 99 Room Air 06/30/24 07:16 88 20 N/A Room Air 21 06/30/24 07:13 88 19 06/30/24 04:00 97.3 89 17 140/56 99 Room Air LABS: Hematology Labs: Test 06/30/24 04:58 06/29/24 04:45 Range/Units White Blood Count 10.4 4.8-10.8 K/uL Red Blood Count 2.60 L 4.50-6.20 MIL/uL Hemoglobin 7.3 L 14.0-18.0 g/dL Hematocrit 24.1 L 42-54 % Mean Corpuscular Volume 92.7 79-99 fL Mean Corpuscular Hemoglobin 28.1 27.0-33.0 pg Mean Corpuscular Hemoglobin Concent 30.3 L 32.0-36.0 g/dL Red Cell Distribution Width 21.4 H 11.0-15.5 % Platelet Count 139 130-400 K/uL Mean Platelet Volume 10.8 H 7.5-10.5 fL Immature Granulocyte % (Auto) 1.2 H 0-1 % Neutrophils (%) (Auto) 84.9 H 40.0-77.0 % Lymphocytes (%) (Auto) 7.5 L 21.0-51.0 % Monocytes (%) (Auto) 6.4 3.0-13.0 % Eosinophils (%) (Auto) 0.0 0.0-8.0 % Basophils (%) (Auto) 0.0 0.0-5.0 % Neutrophils # (Auto) 8.8 H 1.8-7.7 K/uL Lymphocytes # (Auto) 0.8 L 1.0-4.8 K/uL Monocytes # (Auto) 0.7 0.1-1.0 K/uL Eosinophils # (Auto) 0.00 0.00-0.70 K/uL Basophils # (Auto) 0.00 0.00-0.20 K/uL Absolute Immature Granulocyte (auto 0.13 0-1 K/uL Nucleated Red Blood Cells 0.0 0.0-0.19 % White Cell Morphology Comment CONSISTENT W/DIFF Red Blood Cell Morphology See comments Chemistry Labs: Test 06/30/24 06:08 06/30/24 04:58 Range/Units Whole Blood Glucose 188 H 70-110 MG/DL Sodium Level 153 H 136-145 mmol/L Potassium Level 4.0 3.5-5.1 mmol/L Chloride Level 117 H 101-111 mmol/L Carbon Dioxide Level 31 21-32 mmol/L Blood Urea Nitrogen 64 H 7-18 mg/dL Creatinine 1.6 H 0.5-1.3 mg/dL Glomerular Filtration Rate Calc 46 >90 mL/min Random Glucose 203 H 70-105 mg/dL Total Calcium 7.3 L 8.5-10.1 mg/dL Total Bilirubin 0.8 0.2-1.0 mg/dL Aspartate Amino Transf (AST/SGOT) 45 H 10-37 U/L Alanine Aminotransferase (ALT/SGPT) 81 H 12-78 U/L Alkaline Phosphatase 315 H 50-136 U/L Total Protein 5.1 L 6.0-8.3 g/dL Albumin 1.5 L 3.5-5.0 g/dL DIAGNOSTICS / RADIOLOGY RESULTS: [Reviewed] PLAN NEURO: Minimize central acting medications as possible. Maintain fall precautions, adequate lighting during the day PULMONARY: Supplemental 02 as needed. Maintain aspiration precautions at all times CARDIOVASCULAR: Follow hemodynamics. Vital signs per facility protocol GI & NUTRITION: Continue with nutritional support. Continue stool softeners and laxatives as needed. KIDNEYS & ELECTROLYTES: Strict monitoring of intake, output and overall fluid balance. Avoid nephrotoxic medications to the extent possible. Medications to be dosed according to renal function. Monitor electrolytes and replace as needed ENDOCRINE: Maintain blood glucose between 100-180 at all times. Hypoglycemia protocol in place INFECTIOUS DISEASE: Trend temperature, WBC and procalcitonin level Follow cultures, deescalate antibiotics as soon as possible. Panculture if new onset fever ONCOLOGY/HEMATOLOGY/COAGULATION: Monitor for s/s of bleeding Monitor hemoglobin, coagulation studies as needed SKIN: Pressure ulcer prevention per facility protocol Specialty mattress ORTHO/REHAB: Continue PT/OT Prophylaxis: Continue GI and DVT prophylaxis Code Status: Full Resuscitation Disposition: [place] once medically stable for discharge. SALLIE SHIELDS Jun 30, 2024 10:59
[2024-06-30] MEDS: fluCONazole 100 MG TAB PO SCH (12:52)
--- NOTE | 2024-06-30 13:38 | PN ---
INFECTIOUS DISEASE PROGRESS NOTE Date of Service: Jun 30, 2024 SUBJECTIVE: This is a 68-year-old male patient who was seen and examined at bedside room 317. Patient is resting comfortable. No reports of fever this morning, temperature is 99.0. The final urine cultures results came back positive for yeast species and the wound cultures from the thigh came back positive for Cindy albicans. We will start patient on Diflucan daily and ill continue on Meropenem. Patient's visiting at bedside was updated with this new information. Per report patient is having diarrhea and pending stool culture collection. Will continue to follow patient's care. PHYSICAL EXAM EYES: Anicteric. Pupils equal and reactive. 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 HENT: No oral thrush seen, moist Oral mucosa NECK: Supple, no JVD or thyromegaly. LUNGS: Good air entry. No rales, no rhonchi. Oxygen support. CARDIOVASCULAR: S1, S2 regular. No murmur heard. ABDOMEN: Soft, non tender, bowel sounds present, no organomegaly. Peg tube. CENTRAL NERVOUS SYSTEM: Awake, alert, oriented x 3. SKIN: No rashes, no swelling. LYMPHATICS: No peripheral lymphadenopathy MUSCULOSKELETAL: No joint swelling, erythema or tenderness. EXTREMITIES: No cyanosis or clubbing. Bilateral inner thigh ulcers. BACK: No deformity, no pressure ulcer. GENITOURINARY: No dysuria or hematuria. Vital Sign (Last 12 Hours) 06/30/24 06/30/24 06/30/24 06/30/24 04:00 07:13 07:16 08:00 Temp 97.3 99.0 Pulse 89 88 88 86 Resp 17 19 20 16 B/P (MAP) 140/56 133/56 Pulse Ox 99 99 O2 Delivery Room Air N/A Room Air Room Air FiO2 21 06/30/24 06/30/24 06/30/24 06/30/24 10:15 11:40 11:52 12:00 Temp 97.9 Pulse 86 89 79 Resp 19 20 18 B/P (MAP) 151/61 Pulse Ox 99 100 O2 Delivery Room Air* N/A Room Air Room Air O2 Flow Rate 0 FiO2 21 21 Intake & Output (last 24hrs) 06/29/24 06/29/24 06/30/24 15:00 23:00 07:00 Intake Total 1000.0 ml 1360.0 ml Output Total 600 ml 600 ml 700 ml Balance -600 ml 400.0 ml 660.0 ml LABS: Laboratory: Test 06/30/24 11:31 06/30/24 04:58 06/29/24 11:50 06/29/24 04:45 Range/Units Whole Blood Glucose 148 H 70-110 MG/DL White Blood Count 10.4 4.8-10.8 K/uL Red Blood Count 2.60 L 4.50-6.20 MIL/uL Hemoglobin 7.3 L 14.0-18.0 g/dL Hematocrit 24.1 L 42-54 % Mean Corpuscular Volume 92.7 79-99 fL Mean Corpuscular Hemoglobin 28.1 27.0-33.0 pg Mean Corpuscular Hemoglobin Concent 30.3 L 32.0-36.0 g/dL Red Cell Distribution Width 21.4 H 11.0-15.5 % Platelet Count 139 130-400 K/uL Mean Platelet Volume 10.8 H 7.5-10.5 fL Immature Granulocyte % (Auto) 1.2 H 0-1 % Neutrophils (%) (Auto) 84.9 H 40.0-77.0 % Lymphocytes (%) (Auto) 7.5 L 21.0-51.0 % Monocytes (%) (Auto) 6.4 3.0-13.0 % Eosinophils (%) (Auto) 0.0 0.0-8.0 % Basophils (%) (Auto) 0.0 0.0-5.0 % Neutrophils # (Auto) 8.8 H 1.8-7.7 K/uL Lymphocytes # (Auto) 0.8 L 1.0-4.8 K/uL Monocytes # (Auto) 0.7 0.1-1.0 K/uL Eosinophils # (Auto) 0.00 0.00-0.70 K/uL Basophils # (Auto) 0.00 0.00-0.20 K/uL Absolute Immature Granulocyte (auto 0.13 0-1 K/uL Nucleated Red Blood Cells 0.0 0.0-0.19 % Sodium Level 153 H 136-145 mmol/L Potassium Level 4.0 3.5-5.1 mmol/L Chloride Level 117 H 101-111 mmol/L Carbon Dioxide Level 31 21-32 mmol/L Blood Urea Nitrogen 64 H 7-18 mg/dL Creatinine 1.6 H 0.5-1.3 mg/dL Glomerular Filtration Rate Calc 46 >90 mL/min Random Glucose 203 H 70-105 mg/dL Total Calcium 7.3 L 8.5-10.1 mg/dL Total Bilirubin 0.8 0.2-1.0 mg/dL Aspartate Amino Transf (AST/SGOT) 45 H 10-37 U/L Alanine Aminotransferase (ALT/SGPT) 81 H 12-78 U/L Alkaline Phosphatase 315 H 50-136 U/L Total Protein 5.1 L 6.0-8.3 g/dL Albumin 1.5 L 3.5-5.0 g/dL Blood Gas Specimen Type Arterial Arterial Blood pH 7.514 H 7.350-7.450 Arterial Blood Partial Pressure CO2 33 L 35-48 mmHg Arterial Blood Partial Pressure O2 84.8 83.0-108.0 mmHg Arterial Blood HCO3 25.8 21.0-28.0 mmol/L Arterial Blood Oxygen Saturation 97.3 94.0-98.0 % Arterial Blood Base Excess 3.4 H -2.0-3.0 mmol/L Blood Gas Temperature 37.0 35.5-37.0 CELSIUS Blood Gas Vent Mode RA ROOM AIR FiO2 21.0 % Blood Gas Specimen Comment RR CHAVO RN White Cell Morphology Comment CONSISTENT W/DIFF Red Blood Cell Morphology See comments ASSESSMENT: Urinary tract infection with yeast species. Bilateral thigh ulcers infection with Cindy albicans. Diabetes mellitus. Right eye blindness. Anemia. Chronic renal failure PLAN: Continue Meropenem. Start fluconazole 200 mg per PEG tube daily. Continue oxygen support. We will follow up on the cultures. Continue bronchodilators. Continue monitoring blood sugar levels. Continue wound care as recommended by the wound care team. Continue nutritional support, currently on tube feedings with Glucerna. Will Monitor electrolytes. This case was reviewed and discussed with my supervising physician and the above assessment and plan was formulated and agreed upon. ATTESTATION BY PHYSICIAN I have seen and examined the patient. I reviewed the documentation, medical decision making, and treatment plan as noted by the mid-level provider above. I agree with the findings and plan of care. HECTOR FINLEY MD, [facility] Jun 30, 2024 13:38
--- NOTE | 2024-06-30 18:05 | NUR ---
Nutritional f/u Note: Chart, meds, and labs Reviewed. Wound care continues in progress. Current TF Glucerna 1.5 @55ml/hr is meeting nutritional needs. Current abnormal electrolytes suggest imbalance related to possible hydration status. Abnormal nutrition related labs: NA 135, cl 117, bun 64, crea 1.6, gfr 46, ast 45, alt 81, alk phos 315, total pro 5.1, alb 1.5. Wt Status: stable since RD initial assessment. Recommend: -increase water flush as per MD. Consider 300ml q 4 -ProStat BID (30 ml) Which will aid in wound healing. Balance protein calorie intake to promote wound healing. This provides 3.3 mg L-arginine, 15 gm protein and 100 kcal per 30 ml -Zinc Sulfate 220mg BID, Vit C 500mg BID, and MVI -Check HA1C to obtain the three-month average of blood sugar. -Check folate, iron, vit b12, and Vit D levels to rule out deficiencies. Per research low vitamin D may contribute to insulin resistance + vit. D deficiency may impair wound healing. -Nephrovite MVI combination of B vitamins may be used to treat or prevent vitamin deficiency due to poor diet. -RD to provide further recommendations based on clinical progress. -Monitor feeding tolerance, %, wt, and labs -If No BM >3days consider bowel stimulant. - Please notify RD if additional nutrition concerns arise. Addendum: 06/30/24 at [address] Amended: Links added.
[2024-07-01] VITALS (11 sets, daily range): BP systolic 128–159; BP diastolic 47–73; PULSE 78–86; RESP 18–20; TEMP 97.4–100; O2SAT 99–100
[2024-07-01] MEDS: DEXTROSE 5%-WATER 1,000 ML IV SCH (00:10)
[2024-07-01 06:29] LABS: CREATININE 1.3 mg/dL (0.5-1.3); POTASSIUM 4.6 mmol/L (3.5-5.1)
--- NOTE | 2024-07-01 13:41 | PN ---
[facility] PROGRESS NOTE Date Patient Seen: Jul 01, 2024 Time of Visit: 13:37 Supervising Physician: [Dr. Joyce] Primary Care Physician: Dr. 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 GFR 14 on 06/03/2024) Dysphagia s/p peg tube placement on 06/20/2024 Oral thrush, POA Anemia chronic disease Thrombocytopenia Debility/frailty/general body weakness Diabetes mellitus with hyperglycemia, A1c 8.5 on 06/11/24 LVEF 60-65, left ventricular diastolic dysfunction is indeterminate. Left atrium size is mildly dilated, per echo on 06/04/2024 Protein calorie malnutrition/hypoalbuminemia Chronic problem list: Remote CVA, Hypertension, hyperlipidemia, diabetes mellitus, right eye surgery History of DVT on Xarelto. (normal bilateral lower extremity venous Doppler subtle on 06/17/2024) History of DKA History of in-hospital cardiac arrest (5 minutes) on 06/06/2024 Acute hypoxemic respiratory failure intubated in 06/06/2024 and extubated on 06/15/2024 History of a Gram-negative bacteria, positive Proteus mirabilis History of liver failure with hyperbilirubinemia and thrombocytopenia History of coagulopathy with critically elevated fibrinogen level and thrombocytopenia History of TMA, right eye surgery. Peg tube placement on 06/20/2024 Plan Summary: Switch to D5W from 07/07, Monitor sodium, repeat labs in AM Discontinue solumedrol Pending wound culture, continue wound care Continue merrem Supplemental oxygen as needed Duo nebs every 6 hours CPT with nebs Follow urine and blood cultures results Obtain sputum culture Consult wound care team Continue PEG tube feedings, free water flushes of 350 Q4H Levothyroxine 50 mcg daily PT evaluate and treat Cm to refer to [facility] Dispo: [facility] once medically stable for discharge INTERVAL HISTORY: Mr. Blanco is a 68-year-old male with a history of a DM type 2, CVA, DVT, hypertension, CVA, with ESRD requiring dialysis who presented to [facility] for evaluation of general body weakness and low blood pressure per EMS. Per ED physician the patient is coming from [facility] and was sent due to concern for pulmonary congestion and fever. Per staff unknown how low the blood pressure was. Influenza and COVID are negative. Chest x-ray: Prominent interstitial markings are seen with possible superimposed infiltrates. ABGs: PH 7.543, pCO2 34, PO2 106.3, bicarbonate 25.9, O2 98.3, base excess 3.3, on2 L nasal cannula. Remarkable lab results: Hemoglobin 7.5, hematocrit 24.2, RBC 2.64, platelets 126, BUN 45, creatinine 2.1, GFR 33, blood glucose 298, total calcium 7.4, procalcitonin 1.9. UA positive for leuk EST. ED provider request patient be admitted with the diagnosis of pneumonitis, sepsis, and upper respiratory infection. I went to assess the patient at bedside in ED 11. The patient appeared chronically ill, hot to touch, eyes closed, speech is slurred, does not follow command, has tremor to his left hand. Patient's was at bedside and stated that the patient has had a previous stroke and is sometime was oriented to self and sometimes to place. She states his baseline is slurred speech, is not able to move bilateral lower extremity, and has some movement to upper extremities. She stated that the patient has thrush, indwelling Araya that was placed in the hospital and has not been changed. She is requesting water for patient to moist his mouth. had multiple questions which were addressed by me. I informed the of labs, diagnostics, and plan of care. Education done on dysphagia and aspiration precautions. She verbalizes understanding and is in agreement with the plan. Plan and assessment are listed below. 06/07 - patient is seen and evaluated at the bedside. Patient is accompanied by his . Patient is seen sitting up in bed continues to be weak, debilitated, deconditioned secondary to previous stroke. Patient is awake and alert and oriented times. Patient was treated with broad-spectrum antibiotics overnight and as per chart, patient continue with low-grade temperature. Labs show anemia with an H&H of 7.6 x 25.1. Patient's TSH is quite elevated at 24.07. We will resume patient's levothyroxine. Patient's urine culture is positive for UTI. Patient's chest x-ray shows superimposed infiltrates. Patient was resumed back on his PEG tube feedings and thus far tolerating well. On exam patient was noted to have some mild scattered wheezing. Instructed nursing to give a short course of high-dose steroids and duo nebs scheduled times 24 hours. We will repeat a chest x-ray in a.m.. 06/28 Pt is evaluated at bed. He is awake, alert, and oriented but appears weak and chronically ill. His labs reveal hypernatremia at 1:51 a.m. a mildly elevated creatinine of 2.1, with a baseline of 1.8 on 06/16 his pro count was elevated at 1.19, lactic acid is 1.6. His UA was positive for leukocyte esterase. Blood, urine cultures are negative, MRSA screen negative. He has extensive ulcerations to lower extremities which are presumably bed-bound sores, wound care is following. His white count has remained within normal limits, he continues on cefepime vancomycin. 06/29 blood pressure is 129/55 with a heart rate of 95. Patient had fever overnight of 100.6 F, now improved at 97.2 F. Had 1325 mL of urine output overnight with the same negative net fluid balance. Per nursing note, patient's refused for patient to receive Solu-Medrol. His WBC remains normal at 10, hemoglobin 7.2, platelets 130. His sodium is elevated at 153, potassium 4.0, creatinine is 2.0. His blood sugar has ranged from 200 to 300s overnight., somewhat improved from yesterday. His blood cultures negative times 48 hours, urine culture is positive for 50 K 200 K CFUs, pending final results. MRSA screen is negative. Patient continues on meropenem. He is feeling slightly improved from yesterday, but is still weak and chronically ill. 06/30 blood pressure is 133/56 with a heart rate of 86, afebrile room air. No documented fevers overnight. Urine output was 1900 mL overnight with a net fluid balance of 460 mL. WBCs 10, hemoglobin 7.3, platelets improved to 139. His sodium remains elevated at 153, he has been on half NS for the same. His creatinine is much improved from 2.1-1.6. His alkaline phosphatase is elevated at 315, AST at 45 and ALT at 81. Albumin is low at 1.5. His wound culture is positive for Cindy albicans, negative for anaerobes, pending final result. Blood sugars much improved to 188 today. No cough or phlegm production. 07/01 blood pressure 159/73 with a heart rate of 86, afebrile on room air. Patient had 2075 mL of urine output overnight, creatinine is improved to 1.3. Sodium slightly improved to 151, continues on dextrose for the same. He is pending stool studies and C diff. his wound cultures positive for Cindy albicans, continues on fluconazole per ID. Blood sugar readings are much improved. REVIEW OF SYSTEMS: Unable to obtain ROS from patient due to AMS PHYSICAL EXAM: GENERAL: Weak, awake oriented x 1, chronically ill-appearing HEENT: EOMI, Sclera non icteric, moist mucosa NECK: Supple, no JVD, trachea midline LUNGS: Diminished, breath sounds bilaterally. No wheezes HEART: Regular rate and rhythm. Normal S1 and S2, without murmurs ABD: Abdomen soft, nontender. Bowel sounds present. : Araya in place. SKIN: Large wounds yellowish in color with erythema to inner thighs. EXT: No clubbing cyanosis or edema. Bilateral TMA. NEURO: Oriented to person, does not follow command. Speech is clear slurred, unable to move lower extremities, limited upper extremities movement at baseline per . Vital Signs (last 8hr) Date Time Temp Pulse Resp B/P (MAP) Pulse Ox O2 Delivery O2 Flow Rate FiO2 07/01/24 12:00 98.2 86 20 159/73 99 Room Air 07/01/24 11:33 80 20 07/01/24 08:30 80 20 N/A Room Air 07/01/24 08:00 100 Room Air* 0 07/01/24 07:59 97.5 79 20 149/59 100 Room Air 07/01/24 07:22 78 20 LABS: Hematology Labs: Test 06/30/24 04:58 Range/Units White Blood Count 10.4 4.8-10.8 K/uL Red Blood Count 2.60 L 4.50-6.20 MIL/uL Hemoglobin 7.3 L 14.0-18.0 g/dL Hematocrit 24.1 L 42-54 % Mean Corpuscular Volume 92.7 79-99 fL Mean Corpuscular Hemoglobin 28.1 27.0-33.0 pg Mean Corpuscular Hemoglobin Concent 30.3 L 32.0-36.0 g/dL Red Cell Distribution Width 21.4 H 11.0-15.5 % Platelet Count 139 130-400 K/uL Mean Platelet Volume 10.8 H 7.5-10.5 fL Immature Granulocyte % (Auto) 1.2 H 0-1 % Neutrophils (%) (Auto) 84.9 H 40.0-77.0 % Lymphocytes (%) (Auto) 7.5 L 21.0-51.0 % Monocytes (%) (Auto) 6.4 3.0-13.0 % Eosinophils (%) (Auto) 0.0 0.0-8.0 % Basophils (%) (Auto) 0.0 0.0-5.0 % Neutrophils # (Auto) 8.8 H 1.8-7.7 K/uL Lymphocytes # (Auto) 0.8 L 1.0-4.8 K/uL Monocytes # (Auto) 0.7 0.1-1.0 K/uL Eosinophils # (Auto) 0.00 0.00-0.70 K/uL Basophils # (Auto) 0.00 0.00-0.20 K/uL Absolute Immature Granulocyte (auto 0.13 0-1 K/uL Nucleated Red Blood Cells 0.0 0.0-0.19 % Chemistry Labs: Test 07/01/24 05:29 06/30/24 11:31 06/30/24 04:58 Range/Units Sodium Level 151 H 136-145 mmol/L Potassium Level 4.6 3.5-5.1 mmol/L Chloride Level 116 H 101-111 mmol/L Carbon Dioxide Level 31 21-32 mmol/L Blood Urea Nitrogen 51 H 7-18 mg/dL Creatinine 1.3 0.5-1.3 mg/dL Glomerular Filtration Rate Calc 59 >90 mL/min Random Glucose 183 H 70-105 mg/dL Total Calcium 7.4 L 8.5-10.1 mg/dL Whole Blood Glucose 148 H 70-110 MG/DL Total Bilirubin 0.8 0.2-1.0 mg/dL Aspartate Amino Transf (AST/SGOT) 45 H 10-37 U/L Alanine Aminotransferase (ALT/SGPT) 81 H 12-78 U/L Alkaline Phosphatase 315 H 50-136 U/L Total Protein 5.1 L 6.0-8.3 g/dL Albumin 1.5 L 3.5-5.0 g/dL DIAGNOSTICS / RADIOLOGY RESULTS: [Reviewed] PLAN NEURO: Minimize central acting medications as possible. Maintain fall precautions, adequate lighting during the day PULMONARY: Supplemental 02 as needed. Maintain aspiration precautions at all times CARDIOVASCULAR: Follow hemodynamics. Vital signs per facility protocol GI & NUTRITION: Continue with nutritional support. Continue stool softeners and laxatives as needed. KIDNEYS & ELECTROLYTES: Strict monitoring of intake, output and overall fluid balance. Avoid nephrotoxic medications to the extent possible. Medications to be dosed according to renal function. Monitor electrolytes and replace as needed ENDOCRINE: Maintain blood glucose between 100-180 at all times. Hypoglycemia protocol in place INFECTIOUS DISEASE: Trend temperature, WBC and procalcitonin level Follow cultures, deescalate antibiotics as soon as possible. Panculture if new onset fever ONCOLOGY/HEMATOLOGY/COAGULATION: Monitor for s/s of bleeding Monitor hemoglobin, coagulation studies as needed SKIN: Pressure ulcer prevention per facility protocol Specialty mattress ORTHO/REHAB: Continue PT/OT Prophylaxis: Continue GI and DVT prophylaxis Code Status: Full Resuscitation Disposition: Sumilynette Collinsen once medically stable for discharge. The patient has seen and evaluated, the case has been discussed with the PA, I agree with the clinical findings and plan of care, time spend at the bedside more than 40 minutes. SALLIE SHIELDS Jul 01, 2024 13:41 ALF JOYCE MD Jul 08, 2024 11:04
--- NOTE | 2024-07-01 15:22 | PN ---
INFECTIOUS DISEASE PROGRESS NOTE Date of Service: Jul 01, 2024 SUBJECTIVE: This is a 68-year-old male patient who was seen and examined at bedside in room 317. Patient is resting comfortable with the head of the bed elevated. No dyspnea observe and patient is saturating 99 to 100% on room air. Patient continues on Meropenem and Diflucan. Patient's visiting at bedside. Wounds to bilateral thighs areas are covered with Kerlix. Per report patient has not had any more diarrhea episodes since yesterday after medicating with the Imodium. Stool cultures has been collected. Will continue to follow patient's care. PHYSICAL EXAM EYES: Anicteric. Pupils equal and reactive. 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 HENT: No oral thrush seen, moist Oral mucosa NECK: Supple, no JVD or thyromegaly. LUNGS: Good air entry. No rales, no rhonchi. Oxygen support. CARDIOVASCULAR: S1, S2 regular. No murmur heard. ABDOMEN: Soft, non tender, bowel sounds present, no organomegaly. Peg tube. CENTRAL NERVOUS SYSTEM: Awake, alert, oriented x 3. SKIN: No rashes, no swelling. LYMPHATICS: No peripheral lymphadenopathy MUSCULOSKELETAL: No joint swelling, erythema or tenderness. EXTREMITIES: No cyanosis or clubbing. Bilateral inner thigh ulcers. BACK: No deformity, no pressure ulcer. GENITOURINARY: No dysuria or hematuria. Vital Sign (Last 12 Hours) 07/01/24 07/01/24 07/01/24 07/01/24 04:00 07:22 07:59 08:00 Temp 97.3 97.5 Pulse 79 78 79 Resp 18 20 20 B/P (MAP) 156/49 149/59 Pulse Ox 100 100 100 O2 Delivery Room Air Room Air Room Air* O2 Flow Rate 0 FiO2 21 21 07/01/24 07/01/24 07/01/24 08:30 11:33 12:00 Temp 98.2 Pulse 80 80 86 Resp 20 20 20 B/P (MAP) 159/73 Pulse Ox 99 O2 Delivery N/A Room Air Room Air FiO2 21 21 Intake & Output (last 24hrs) 06/30/24 06/30/24 07/01/24 15:00 23:00 07:00 Intake Total 700 ml 1000.0 ml 1535.0 ml Output Total 1100 ml 975 ml Balance 700 ml -100.0 ml 560.0 ml LABS: Laboratory: Test 07/01/24 05:29 06/30/24 11:31 06/30/24 04:58 Range/Units Sodium Level 151 H 136-145 mmol/L Potassium Level 4.6 3.5-5.1 mmol/L Chloride Level 116 H 101-111 mmol/L Carbon Dioxide Level 31 21-32 mmol/L Blood Urea Nitrogen 51 H 7-18 mg/dL Creatinine 1.3 0.5-1.3 mg/dL Glomerular Filtration Rate Calc 59 >90 mL/min Random Glucose 183 H 70-105 mg/dL Total Calcium 7.4 L 8.5-10.1 mg/dL Whole Blood Glucose 148 H 70-110 MG/DL White Blood Count 10.4 4.8-10.8 K/uL Red Blood Count 2.60 L 4.50-6.20 MIL/uL Hemoglobin 7.3 L 14.0-18.0 g/dL Hematocrit 24.1 L 42-54 % Mean Corpuscular Volume 92.7 79-99 fL Mean Corpuscular Hemoglobin 28.1 27.0-33.0 pg Mean Corpuscular Hemoglobin Concent 30.3 L 32.0-36.0 g/dL Red Cell Distribution Width 21.4 H 11.0-15.5 % Platelet Count 139 130-400 K/uL Mean Platelet Volume 10.8 H 7.5-10.5 fL Immature Granulocyte % (Auto) 1.2 H 0-1 % Neutrophils (%) (Auto) 84.9 H 40.0-77.0 % Lymphocytes (%) (Auto) 7.5 L 21.0-51.0 % Monocytes (%) (Auto) 6.4 3.0-13.0 % Eosinophils (%) (Auto) 0.0 0.0-8.0 % Basophils (%) (Auto) 0.0 0.0-5.0 % Neutrophils # (Auto) 8.8 H 1.8-7.7 K/uL Lymphocytes # (Auto) 0.8 L 1.0-4.8 K/uL Monocytes # (Auto) 0.7 0.1-1.0 K/uL Eosinophils # (Auto) 0.00 0.00-0.70 K/uL Basophils # (Auto) 0.00 0.00-0.20 K/uL Absolute Immature Granulocyte (auto 0.13 0-1 K/uL Nucleated Red Blood Cells 0.0 0.0-0.19 % Total Bilirubin 0.8 0.2-1.0 mg/dL Aspartate Amino Transf (AST/SGOT) 45 H 10-37 U/L Alanine Aminotransferase (ALT/SGPT) 81 H 12-78 U/L Alkaline Phosphatase 315 H 50-136 U/L Total Protein 5.1 L 6.0-8.3 g/dL Albumin 1.5 L 3.5-5.0 g/dL ASSESSMENT: Urinary tract infection with yeast species. Bilateral thigh ulcers infection with Cindy albicans. Diabetes mellitus. Right eye blindness. Anemia. Chronic renal failure PLAN: Continue Meropenem. Continue fluconazole 200 mg per PEG tube daily. Continue oxygen support. Continue bronchodilators. Continue monitoring blood sugar levels. Continue wound care as recommended by the wound care team. Continue nutritional support, currently on tube feedings with Glucerna. Will Monitor electrolytes. This case was reviewed and discussed with my supervising physician and the above assessment and plan was formulated and agreed upon. ATTESTATION BY PHYSICIAN I have seen and examined the patient. I reviewed the documentation, medical decision making, and treatment plan as noted by the mid-level provider above. I agree with the findings and plan of care. HECTOR FINLEY MD, MIRTA L [facility] Jul 01, 2024 15:22
[2024-07-01] MEDS ORDERED: D5LR-20 MEQ KCL 1000ML BAG IV SCH (20:30)
[2024-07-01] MEDS ORDERED: DEXTROSE 5%-WATER 1,000 ML IV SCH (22:00)
--- NOTE | 2024-07-01 22:00 | NUR ---
PATIENT UPDATE NEW ORDER FOR D5LR WITH 20MEQ KCL TO RUN AT 500CC/HR INITIALLY THEN AT 50 CC/HR TO REPLACE ONGOING D5W AT 50 CC/HR. PT'S POTASSIUM AT 4.6, NORMOTENSIVE, VALE PORTILLO CALLED TO CLARIFY MR. SHIELDS'S ORDER. HE ALSO WAS MADE AWARE OF PT'S BLOOD SUGAR NOW RUNNING AT THE LOW SIDE WITH D5W INFUSING AT 50 CC'S /HR. ASKED ABOUT THE 20 UNITS OF LANTUS SCHEDULED FOR 2100 WITH THE BLOOD SUGAR AT 105, LANTUS WAS DISCONTINUED. ALSO CLARIFIED THE SLIDING SCALE ORDERS WHICH WE CURRENTLY HAVE AT S/S #2, ORDER RECEIVED TO SWITCH THE REGIMEN DOWN TO SLIDING SCALE 1 AND ALSO TO CONTINUE WITH THE PREVIOUS IVF OF D5W AT 50 CC/HR. PT AND MADE AWARE ABOUT THE CHANGE IN THE REGIMEN AND THEY WERE HAPPY ABOUT IT. CONTINUES TO TOLERATE THE TUBE FEEDING WELL, NO LONGER HAVING PERSISTENT DIARRHEA. PT COMFORTABLE, REPOSITIONED IN THE BED FOR PRESSURE RELIEF, GOOD SKIN CARE GIVEN. PICC LINE DRESSING CHANGED USING ASEPTIC TECHNIQUE. VITAL SIGNS STABLE AND NOT IN ANY FORM OF DISTRESS.
[2024-07-02] VITALS (13 sets, daily range): BP systolic 101–157; BP diastolic 50–74; PULSE 77–91; RESP 18–20; TEMP 97.4–100.1; O2SAT 98–99
[2024-07-02] MEDS ORDERED: INSULIN humuLIN R 100 UNIT/ML 3ML SQ SCH
[2024-07-02] MEDS: INSULIN humuLIN R 100 UNIT/ML 3ML SQ SCH
[2024-07-02 07:39] LABS: BASOPHILS # (AUTO) 0.01 K/uL (0.00-0.20); BASOPHILS % (AUTO) 0.1 % (0.0-5.0); EOSINOPHILS # (AUTO) 0.15 K/uL (0.00-0.70); EOSINOPHILS % (AUTO) 1.8 % (0.0-8.0); HEMATOCRIT 23.7 % (42-54); IMMATURE GRANULOCYTE ABSOLUTE 0.33 K/uL (0-1); MEAN CORPUSCULAR HGB CONC 30.8 g/dL (32.0-36.0); MEAN CORPUSCULAR VOLUME 90.8 fL (79-99); MONOCYTES # (AUTO) 0.5 K/uL (0.1-1.0); MONOCYTES % (AUTO) 5.8 % (3.0-13.0); NEUTROPHILS # (AUTO) 6.2 K/uL (1.8-7.7); NEUTROPHILS % (AUTO) 76.2 % (40.0-77.0); PLATELET COUNT (AUTO) 135 K/uL (130-400); RED BLOOD CELL COUNT(AUTO) 2.61 MIL/uL (4.50-6.20); RED CELL DISTRIBUTION WIDTH 21.4 % (11.0-15.5); WHITE BLOOD COUNT (AUTO) 8.1 K/uL (4.8-10.8)
[2024-07-02 07:54] LABS: CREATININE 1.4 mg/dL (0.5-1.3); POTASSIUM 5.5 mmol/L (3.5-5.1)
--- NOTE | 2024-07-02 11:05 | PN ---
[facility] PROGRESS NOTE Date Patient Seen: Jul 02, 2024 Time of Visit: 10:56 Supervising Physician: [Dr. Joyce] Primary Care Physician: Dr. 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 GFR 14 on 06/03/2024) Dysphagia s/p peg tube placement on 06/20/2024 Oral thrush, POA Anemia chronic disease Thrombocytopenia Debility/frailty/general body weakness Diabetes mellitus with hyperglycemia, A1c 8.5 on 06/11/24 LVEF 60-65, left ventricular diastolic dysfunction is indeterminate. Left atrium size is mildly dilated, per echo on 06/04/2024 Protein calorie malnutrition/hypoalbuminemia Chronic problem list: Remote CVA, Hypertension, hyperlipidemia, diabetes mellitus, right eye surgery History of DVT on Xarelto. (normal bilateral lower extremity venous Doppler subtle on 06/17/2024) History of DKA History of in-hospital cardiac arrest (5 minutes) on 06/06/2024 Acute hypoxemic respiratory failure intubated in 06/06/2024 and extubated on 06/15/2024 History of a Gram-negative bacteria, positive Proteus mirabilis History of liver failure with hyperbilirubinemia and thrombocytopenia History of coagulopathy with critically elevated fibrinogen level and thrombocytopenia History of TMA, right eye surgery. Peg tube placement on 06/20/2024 Plan Summary: Continue abx per ID Monitor sodium and potassium, repeat labs in AM Discontinue solumedrol Pending wound culture, continue wound care Supplemental oxygen as needed Duo nebs every 6 hours CPT with nebs Follow urine and blood cultures results Obtain sputum culture Consult wound care team Continue PEG tube feedings, free water flushes of 350 Q4H Levothyroxine 50 mcg daily PT evaluate and treat Cm to refer to [facility] Dispo: [facility] once medically stable for discharge INTERVAL HISTORY: Mr. Blanco is a 68-year-old male with a history of a DM type 2, CVA, DVT, hypertension, CVA, with ESRD requiring dialysis who presented to [facility] ED for evaluation of general body weakness and low blood pressure per EMS. Per ED physician the patient is coming from [facility] and was sent due to concern for pulmonary congestion and fever. Per staff unknown how low the blood pressure was. Influenza and COVID are negative. Chest x-ray: Prominent interstitial markings are seen with possible superimposed infiltrates. ABGs: PH 7.543, pCO2 34, PO2 106.3, bicarbonate 25.9, O2 98.3, base excess 3.3, on2 L nasal cannula. Remarkable lab results: Hemoglobin 7.5, hematocrit 24.2, RBC 2.64, platelets 126, BUN 45, creatinine 2.1, GFR 33, blood glucose 298, total calcium 7.4, procalcitonin 1.9. UA positive for leuk EST. ED provider request patient be admitted with the diagnosis of pneumonitis, sepsis, and upper respiratory infection. I went to assess the patient at bedside in ED 11. The patient appeared chronically ill, hot to touch, eyes closed, speech is slurred, does not follow c ommand, has tremor to his left hand. Patient's was at bedside and stated that the patient has had a previous stroke and is sometime was oriented to self and sometimes to place. She states his baseline is slurred speech, is not able to move bilateral lower extremity, and has some movement to upper extremities. She stated that the patient has thrush, indwelling Araya that was placed in the hospital and has not been changed. She is requesting water for patient to moist his mouth. had multiple questions which were addressed by me. I informed the of labs, diagnostics, and plan of care. Education done on dysphagia a nd aspiration precautions. She verbalizes understanding and is in agreement with the plan. Plan and assessment are listed below. 06/07 - patient is seen and evaluated at the bedside. Patient is accompanied by his . Patient is seen sitting up in bed continues to be weak, debilitated, deconditioned secondary to previous stroke. Patient is awake and alert and oriented times. Patient was treated with broad-spectrum antibiotics overnight and as per chart, patient continue with low-grade temperature. Labs show anemia with an H&H of 7.6 x 25.1. Patient's TSH is quite elevated at 24.07. We will resume patient's levothyroxine. Patient's urine culture is positive for UTI. Patient's chest x-ray shows superimposed infiltrates. Patient was resumed back on his PEG tube feedings and thus far tolerating well. On exam patient was noted to have some mild scattered wheezing. Instructed nursing to give a short course of high-dose steroids and duo nebs scheduled times 24 hours. We will repeat a chest x-ray in a.m.. 06/28 Pt is evaluated at bed. He is awake, alert, and oriented but appears weak and chronically ill. His labs reveal hypernatremia at 1:51 a.m. a mildly elevated creatinine of 2.1, with a baseline of 1.8 on 06/16 his pro count was elevated at 1.19, lactic acid is 1.6. His UA was positive for leukocyte esterase. Blood, urine cultures are negative, MRSA screen negative. He has extensive ulcerations to lower extremities which are presumably bed-bound sores, wound care is following. His white count has remained within normal limits, he continues on cefepime vancomycin. 06/29 blood pressure is 129/55 with a heart rate of 95. Patient had fever overnight of 100.6 F, now improved at 97.2 F. Had 1325 mL of urine output overnight with the same negative net fluid balance. Per nursing note, patient's refused for patient to receive Solu-Medrol. His WBC remains normal at 10, hemoglobin 7.2, platelets 130. His sodium is elevated at 153, potassium 4.0, creatinine is 2.0. His blood sugar has ranged from 200 to 300s overnight., somewhat improved from yesterday. His blood cultures negative times 48 hours, urine culture is positive for 50 K 200 K CFUs, pending final results. MRSA screen is negative. Patient continues on meropenem. He is feeling slightly improved from yesterday, but is still weak and chronically ill. 06/30 blood pressure is 133/56 with a heart rate of 86, afebrile room air. No documented fevers overnight. Urine output was 1900 mL overnight with a net fluid balance of 460 mL. WBCs 10, hemoglobin 7.3, platelets improved to 139. His sodium remains elevated at 153, he has been on half NS for the same. His creatinine is much improved from 2.1-1.6. His alkaline phosphatase is elevated at 315, AST at 45 and ALT at 81. Albumin is low at 1.5. His wound culture is positive for Cindy albicans, negative for anaerobes, pending final result. Blood sugars much improved to 188 today. No cough or phlegm production. 07/01 blood pressure 159/73 with a heart rate of 86, afebrile on room air. Patient had 2075 mL of urine output overnight, creatinine is improved to 1.3. Sodium slightly improved to 151, continues on dextrose for the same. He is pending stool studies and C diff. his wound cultures positive for Cindy albicans, continues on fluconazole per ID. Blood sugar readings are much improved. 07/02 blood pressure 140/61 with a heart rate of 84, afebrile on room air. He had 2650 mL of urine output overnight with a net fluid balance of-590 mL. Hgb was 8 today, hemoglobin 7.3, platelets 135. Patient's sodium is improved to 142 this morning, has hyperkalemia at 5.5. Creatinine is currently at 1.4. His stool is negative for ova and parasites. His Merrem has been discontinued, has been initiated on linezolid per ID, continues on fluconazole. REVIEW OF SYSTEMS: Unable to obtain ROS from patient due to AMS PHYSICAL EXAM: GENERAL: Weak, awake oriented x 1, chronically ill-appearing HEENT: EOMI, Sclera non icteric, moist mucosa NECK: Supple, no JVD, trachea midline LUNGS: Diminished, breath sounds bilaterally. No wheezes HEART: Regular rate and rhythm. Normal S1 and S2, without murmurs ABD: Abdomen soft, nontender. Bowel sounds present. : Araya in place. SKIN: Large wounds yellowish in color with erythema to inner thighs. EXT: No clubbing cyanosis or edema. Bilateral TMA. NEURO: Oriented to person, does not follow command. Speech is clear slurred, unable to move lower extremities, limited upper extremities movement at baseline per . Vital Signs (last 8hr) Date Time Temp Pulse Resp B/P (MAP) Pulse Ox O2 Delivery O2 Flow Rate FiO2 07/02/24 07:51 97.3 84 20 140/61 98 Room Air 21 07/02/24 07:20 80 20 07/02/24 07:20 82 18 N/A Room Air 07/02/24 03:46 98.8 91 20 134/57 100 Room Air LABS: Hematology Labs: Test 07/02/24 07:09 Range/Units White Blood Count 8.1 4.8-10.8 K/uL Red Blood Count 2.61 L 4.50-6.20 MIL/uL Hemoglobin 7.3 L 14.0-18.0 g/dL Hematocrit 23.7 L 42-54 % Mean Corpuscular Volume 90.8 79-99 fL Mean Corpuscular Hemoglobin 28.0 27.0-33.0 pg Mean Corpuscular Hemoglobin Concent 30.8 L 32.0-36.0 g/dL Red Cell Distribution Width 21.4 H 11.0-15.5 % Platelet Count 135 130-400 K/uL Mean Platelet Volume 10.2 7.5-10.5 fL Immature Granulocyte % (Auto) 4.1 H 0-1 % Neutrophils (%) (Auto) 76.2 40.0-77.0 % Lymphocytes (%) (Auto) 12.0 L 21.0-51.0 % Monocytes (%) (Auto) 5.8 3.0-13.0 % Eosinophils (%) (Auto) 1.8 0.0-8.0 % Basophils (%) (Auto) 0.1 0.0-5.0 % Neutrophils # (Auto) 6.2 1.8-7.7 K/uL Lymphocytes # (Auto) 1.0 1.0-4.8 K/uL Monocytes # (Auto) 0.5 0.1-1.0 K/uL Eosinophils # (Auto) 0.15 0.00-0.70 K/uL Basophils # (Auto) 0.01 0.00-0.20 K/uL Absolute Immature Granulocyte (auto 0.33 0-1 K/uL Nucleated Red Blood Cells 0.0 0.0-0.19 % Chemistry Labs: Test 07/02/24 07:09 06/30/24 11:31 Range/Units Sodium Level 142 136-145 mmol/L Potassium Level 5.5 H 3.5-5.1 mmol/L Chloride Level 109 101-111 mmol/L Carbon Dioxide Level 29 21-32 mmol/L Blood Urea Nitrogen 42 H 7-18 mg/dL Creatinine 1.4 H 0.5-1.3 mg/dL Glomerular Filtration Rate Calc 54 >90 mL/min Random Glucose 264 H 70-105 mg/dL Total Calcium 7.0 L 8.5-10.1 mg/dL Whole Blood Glucose 148 H 70-110 MG/DL DIAGNOSTICS / RADIOLOGY RESULTS: [Reviewed] PLAN NEURO: Minimize central acting medications as possible. Maintain fall precautions, adequate lighting during the day PULMONARY: Supplemental 02 as needed. Maintain aspiration precautions at all times CARDIOVASCULAR: Follow hemodynamics. Vital signs per facility protocol GI & NUTRITION: Continue with nutritional support. Continue stool softeners and laxatives as needed. KIDNEYS & ELECTROLYTES: Strict monitoring of intake, output and overall fluid balance. Avoid nephrotoxic medications to the extent possible. Medications to be dosed according to renal function. Monitor electrolytes and replace as needed ENDOCRINE: Maintain blood glucose between 100-180 at all times. Hypoglycemia protocol in place INFECTIOUS DISEASE: Trend temperature, WBC and procalcitonin level Follow cultures, deescalate antibiotics as soon as possible. Panculture if new onset fever ONCOLOGY/HEMATOLOGY/COAGULATION: Monitor for s/s of bleeding Monitor hemoglobin, coagulation studies as needed SKIN: Pressure ulcer prevention per facility protocol Specialty mattress ORTHO/REHAB: Continue PT/OT Prophylaxis: Continue GI and DVT prophylaxis Code Status: Full Resuscitation Disposition: [facility] once medically stable for discharge. The patient has seen and evaluated, the case has been discussed with the PA, I agree with the clinical findings and plan of care, time spend at the bedside more than 40 minutes. SALLIE SHIELDS Jul 02, 2024 11:05 ALF JOYCE MD Jul 08, 2024 10:14
[2024-07-02 11:49] LABS: ABG BASE EXCESS 4.8 mmol/L (-2.0-3.0); ABG HCO3 27.5 mmol/L (21.0-28.0); ABG OXYGEN SATURATION 97.3 % (94.0-98.0); ABG PCO2 35 mmHg (35-48); ABG PH 7.518 (7.350-7.450); DEVICE COMMENT NORA; PO2, ARTERIAL BG 85.4 mmHg (83.0-108.0); VENT MODE, BG RA (ROOM AIR)
[2024-07-02 12:21] LABS: ALBUMIN 1.5 g/dL (3.5-5.0); BILIRUBIN,TOTAL 0.9 mg/dL (0.2-1.0); CREATININE 1.4 mg/dL (0.5-1.3); POTASSIUM 5.4 mmol/L (3.5-5.1); TOTAL PROTEIN, SERUM 4.7 g/dL (6.0-8.3)
[2024-07-02] MEDS: LINEZOLID 600 MG/ISO-OSM 300 ML IV SCH (13:08)
--- NOTE | 2024-07-02 14:33 | PN ---
INFECTIOUS DISEASE PROGRESS NOTE Date of Service: Jul 02, 2024 SUBJECTIVE: This is a 68-year-old male patient who was seen and examined at bedside in room 317. Patient is resting comfortable. The final wound culture results came back positive for Enterococcus faecalis and Cindy albicans. Patient continue with low-grade fevers throughout the night of 100.0. We will discontinue Meropenem and start patient on Zyvox IV every 12 hours. Patient's visiting at bedside and was updated with this information. Will continue to follow patient's care. PHYSICAL EXAM EYES: Anicteric. Pupils equal and reactive. 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 HENT: No oral thrush seen, moist Oral mucosa NECK: Supple, no JVD or thyromegaly. LUNGS: Good air entry. No rales, no rhonchi. Oxygen support. CARDIOVASCULAR: S1, S2 regular. No murmur heard. ABDOMEN: Soft, non tender, bowel sounds present, no organomegaly. Peg tube. CENTRAL NERVOUS SYSTEM: Awake, alert, oriented x 3. SKIN: No rashes, no swelling. LYMPHATICS: No peripheral lymphadenopathy MUSCULOSKELETAL: No joint swelling, erythema or tenderness. EXTREMITIES: No cyanosis or clubbing. Bilateral inner thigh ulcers. BACK: No deformity, no pressure ulcer. GENITOURINARY: No dysuria or hematuria. Vital Sign (Last 12 Hours) 07/02/24 07/02/24 07/02/24 07/02/24 03:46 07:20 07:20 07:51 Temp 98.8 97.3 Pulse 91 82 80 84 Resp 20 18 20 20 B/P (MAP) 134/57 140/61 Pulse Ox 100 98 O2 Delivery Room Air N/A Room Air Room Air FiO2 21 21 07/02/24 07/02/24 07/02/24 08:00 11:42 12:00 Temp 98.2 Pulse 77 91 Resp 20 20 B/P (MAP) 156/65 Pulse Ox 98 99 O2 Delivery Room Air* Room Air O2 Flow Rate 0 FiO2 21 21 Intake & Output (last 24hrs) 07/01/24 07/01/24 07/02/24 15:00 23:00 07:00 Intake Total 525.0 ml 1535.0 ml Output Total 300 ml 1600 ml 750 ml Balance -300 ml -1075.0 ml 785.0 ml LABS: Laboratory: Test 07/02/24 11:49 07/02/24 11:46 07/02/24 07:09 Range/Units Sodium Level 140 136-145 mmol/L Potassium Level 5.4 H 3.5-5.1 mmol/L Chloride Level 107 101-111 mmol/L Carbon Dioxide Level 28 21-32 mmol/L Blood Urea Nitrogen 39 H 7-18 mg/dL Creatinine 1.4 H 0.5-1.3 mg/dL Glomerular Filtration Rate Calc 54 >90 mL/min Random Glucose 245 H 70-105 mg/dL Total Calcium 7.4 L 8.5-10.1 mg/dL Total Bilirubin 0.9 0.2-1.0 mg/dL Aspartate Amino Transf (AST/SGOT) 35 10-37 U/L Alanine Aminotransferase (ALT/SGPT) 60 12-78 U/L Alkaline Phosphatase 290 H 50-136 U/L Total Protein 4.7 L 6.0-8.3 g/dL Albumin 1.5 L 3.5-5.0 g/dL Blood Gas Specimen Type Arterial Arterial Blood pH 7.518 H 7.350-7.450 Arterial Blood Partial Pressure CO2 35 35-48 mmHg Arterial Blood Partial Pressure O2 85.4 83.0-108.0 mmHg Arterial Blood HCO3 27.5 21.0-28.0 mmol/L Arterial Blood Oxygen Saturation 97.3 94.0-98.0 % Arterial Blood Base Excess 4.8 H -2.0-3.0 mmol/L Blood Gas Temperature 37.0 35.5-37.0 CELSIUS Blood Gas Vent Mode RA ROOM AIR FiO2 21.0 % Blood Gas Specimen Comment IVELISSE White Blood Count 8.1 4.8-10.8 K/uL Red Blood Count 2.61 L 4.50-6.20 MIL/uL Hemoglobin 7.3 L 14.0-18.0 g/dL Hematocrit 23.7 L 42-54 % Mean Corpuscular Volume 90.8 79-99 fL Mean Corpuscular Hemoglobin 28.0 27.0-33.0 pg Mean Corpuscular Hemoglobin Concent 30.8 L 32.0-36.0 g/dL Red Cell Distribution Width 21.4 H 11.0-15.5 % Platelet Count 135 130-400 K/uL Mean Platelet Volume 10.2 7.5-10.5 fL Immature Granulocyte % (Auto) 4.1 H 0-1 % Neutrophils (%) (Auto) 76.2 40.0-77.0 % Lymphocytes (%) (Auto) 12.0 L 21.0-51.0 % Monocytes (%) (Auto) 5.8 3.0-13.0 % Eosinophils (%) (Auto) 1.8 0.0-8.0 % Basophils (%) (Auto) 0.1 0.0-5.0 % Neutrophils # (Auto) 6.2 1.8-7.7 K/uL Lymphocytes # (Auto) 1.0 1.0-4.8 K/uL Monocytes # (Auto) 0.5 0.1-1.0 K/uL Eosinophils # (Auto) 0.15 0.00-0.70 K/uL Basophils # (Auto) 0.01 0.00-0.20 K/uL Absolute Immature Granulocyte (auto 0.33 0-1 K/uL Nucleated Red Blood Cells 0.0 0.0-0.19 % ASSESSMENT: Bilateral thigh ulcers infection with Enterococcus faecalis and Cindy albicans. Urinary tract infection with yeast species. Diabetes mellitus. Right eye blindness. Anemia. Chronic renal failure PLAN: Discontinue Meropenem. Start patient on linezolid IV q.12 hours. Continue fluconazole 200 mg per PEG tube daily. Continue oxygen support. Continue bronchodilators. Continue monitoring blood sugar levels. Continue wound care. Continue nutritional support, currently on tube feedings with Glucerna. Will Monitor electrolytes. This case was reviewed and discussed with my supervising physician and the above assessment and plan was formulated and agreed upon. ATTESTATION BY PHYSICIAN I have seen and examined the patient. I reviewed the documentation, medical decision making, and treatment plan as noted by the mid-level provider above. I agree with the findings and plan of care. HECTOR FINLEY MD, [facility]IRTA [facility] Jul 02, 2024 14:33
[2024-07-03] VITALS (12 sets, daily range): BP systolic 123–161; BP diastolic 56–73; PULSE 73–87; RESP 18–20; TEMP 98–99.5; O2SAT 96–100
[2024-07-03 07:51] LABS: CREATININE 1.5 mg/dL (0.5-1.3)
[2024-07-03] MEDS: kayEXALate 15GM/60ML PEG ONE (11:48)
--- NOTE | 2024-07-03 13:21 | PN ---
[facility] PROGRESS NOTE Date Patient Seen: Jul 03, 2024 Time of Visit: 13:15 Supervising Physician: [Dr. French] Primary Care Physician: Dr. Huey Frank Outpatient Specialists: Inpatient Consults: Infectious disease Wound Care PROBLEM LIST: Sepsis without septic shock, POA Acute complicated cystitis, POA with outpatient mc Large wounds to upper inner thighs, POA Aspiration pneumonia, POA s/p peg tube placement on 06/20/2024 Acute infectious metabolic encephalopathy, POA Acute hypernatremia, Na-153, corrected ANJU on CKD stage 3b, GFR 33 POA (GFR 43 on 06/22/2024. GFR 14 on 06/03/2024) Hyperkalemia, treated Oral thrush, POA Anemia chronic disease Thrombocytopenia Debility/frailty/general body weakness Diabetes mellitus with hyperglycemia, A1c 8.5 on 06/11/24 LVEF 60-65, left ventricular diastolic dysfunction is indeterminate. Left atrium size is mildly dilated, per echo on 06/04/2024 Protein calorie malnutrition/hypoalbuminemia Chronic problem list: Remote CVA, Hypertension, hyperlipidemia, diabetes mellitus, right eye surgery History of DVT on Xarelto. (normal bilateral lower extremity venous Doppler subtle on 06/17/2024) History of DKA History of in-hospital cardiac arrest (5 minutes) on 06/06/2024 Acute hypoxemic respiratory failure intubated in 06/06/2024 and extubated on 06/15/2024 History of a Gram-negative bacteria, positive Proteus mirabilis History of liver failure with hyperbilirubinemia and thrombocytopenia History of coagulopathy with critically elevated fibrinogen level and thrombocytopenia History of TMA, right eye surgery. Peg tube placement on 06/20/2024 Plan Summary: Continue abx per ID Monitor sodium and potassium, repeat labs in AM Discontinue solumedrol Pending wound culture, continue wound care Supplemental oxygen as needed Duo nebs every 6 hours CPT with nebs Follow urine and blood cultures results Obtain sputum culture Consult wound care team Continue PEG tube feedings, free water flushes of 350 Q4H Levothyroxine 50 mcg daily PT evaluate and treat Cm to refer to [facility] Dispo: [facility] once medically stable for discharge INTERVAL HISTORY: Mr. Blanco is a 68-year-old male with a history of a DM type 2, CVA, DVT, hypertension, CVA, with ESRD requiring dialysis who presented to [facility] [place] ED for evaluation of general body weakness and low blood pressure per EMS. Per ED physician the patient is coming from [facility] and was sent due to concern for pulmonary congestion and fever. Per staff unknown how low the blood pressure was. Influenza and COVID are negative. Chest x-ray: Prominent interstitial markings are seen with possible superimposed infiltrates. ABGs: PH 7.543, pCO2 34, PO2 106.3, bicarbonate 25.9, O2 98.3, base excess 3.3, on2 L nasal cannula. Remarkable lab results: Hemoglobin 7.5, hematocrit 24.2, RBC 2.64, platelets 126, BUN 45, creatinine 2.1, GFR 33, blood glucose 298, total calcium 7.4, procalcitonin 1.9. UA positive for leuk EST. ED provider request patient be admitted with the diagnosis of pneumonitis, sepsis, and upper respiratory infection. I went to assess the patient at bedside in ED 11. The patient appeared chronically ill, hot to touch, eyes closed, speech is slurred, does not follow command, has tremor to his left hand. Patient's was at bedside and stated that the patient has had a previous stroke and is sometime was oriented to self and sometimes to place. She states his baseline is slurred speech, is not able to move bilateral lower extremity, and has some movement to upper extremities. She stated that the patient has thrush, indwelling Mc that was placed in the hospital and has not been changed. She is requesting water for patient to moist his mouth. had multiple questions which were addressed by me. I informed the of labs, diagnostics, and plan of care. Education done on dysphagia and aspiration precautions. She verbalizes understanding and is in agreement with the plan. Plan and assessment are listed below. 06/07 - patient is seen and evaluated at the bedside. Patient is accompanied by his . Patient is seen sitting up in bed continues to be weak, debilitated, deconditioned secondary to previous stroke. Patient is awake and alert and oriented times. Patient was treated with broad-spectrum antibiotics overnight and as per chart, patient continue with low-grade temperature. Labs show anemia with an H&H of 7.6 x 25.1. Patient's TSH is quite elevated at 24.07. We will resume patient's levothyroxine. Patient's urine culture is positive for UTI. Patient's chest x-ray shows superimposed infiltrates. Patient was resumed back on his PEG tube feedings and thus far tolerating well. On exam patient was noted to have some mild scattered wheezing. Instructed nursing to give a short course of high-dose steroids and duo nebs scheduled times 24 hours. We will repeat a chest x-ray in a.m.. 06/28 Pt is evaluated at bed. He is awake, alert, and oriented but appears weak and chronically ill. His labs reveal hypernatremia at 1:51 a.m. a mildly elevated creatinine of 2.1, with a baseline of 1.8 on 06/16 his pro count was elevated at 1.19, lactic acid is 1.6. His UA was positive for leukocyte esterase. Blood, urine cultures are negative, MRSA screen negative. He has extensive ulcerations to lower extremities which are presumably bed-bound sores, wound care is following. His white count has remained within normal limits, he continues on cefepime vancomycin. 06/29 blood pressure is 129/55 with a heart rate of 95. Patient had fever overnight of 100.6 F, now improved at 97.2 F. Had 1325 mL of urine output overnight with the same negative net fluid balance. Per nursing note, patient's refused for patient to receive Solu-Medrol. His WBC remains normal at 10, hemoglobin 7.2, platelets 130. His sodium is elevated at 153, potassium 4.0, c reatinine is 2.0. His blood sugar has ranged from 200 to 300s overnight., somewhat improved from yesterday. His blood cultures negative times 48 hours, urine culture is positive for 50 K 200 K CFUs, pending final results. MRSA screen is negative. Patient continues on meropenem. He is feeling slightly improved from yesterday, but is still weak and chronically ill. 06/30 blood pressure is 133/56 with a heart rate of 86, afebrile room air. No documented fevers overnight. Urine output was 1900 mL overnight with a net fluid balance of 460 mL. WBCs 10, hemoglobin 7.3, platelets improved to 139. His sodium remains elevated at 153, he has been on half NS for the same. His creatinine is much improved from 2.1-1.6. His alkaline phosphatase is elevated at 315, AST at 45 and ALT at 81. Albumin is low at 1.5. His wound culture is positive for Cindy albicans, negative for anaerobes, pending final result. Blood sugars much improved to 188 today. No cough or phlegm production. 07/01 blood pressure 159/73 with a heart rate of 86, afebrile on room air. Patient had 2075 mL of urine output overnight, creatinine is improved to 1.3. Sodium slightly improved to 151, continues on dextrose for the same. He is pending stool studies and C diff. his wound cultures positive for Cindy albicans, continues on fluconazole per ID. Blood sugar readings are much improved. 07/02 blood pressure 140/61 with a heart rate of 84, afebrile on room air. He had 2650 mL of urine output overnight with a net fluid balance of-590 mL. Hgb was 8 today, hemoglobin 7.3, platelets 135. Patient's sodium is improved to 142 this morning, has hyperkalemia at 5.5. Creatinine is currently at 1.4. His stool is negative for ova and parasites. His Merrem has been discontinued, has been initiated on linezolid per ID, continues on fluconazole. 07/03 blood pressure is 157/68 with a heart rate of 83, afebrile on room air. He had 2600 mL of urine output overnight with a net fluid balance of-2600 mL. His CBC has remained the same, unchanged, does have anemia with hemoglobin 7.3 but is stable. His BMP shows elevated potassium of 6, will address with [facility]. Creatinine is stable at 1.5. His thigh culture is positive for Enterococcus faecalis, continues on linezolid and fluconazole per ID. Sodium levels have improved to WNL. He is pending case management for SNF eval. REVIEW OF SYSTEMS: Unable to obtain ROS from patient due to AMS PHYSICAL EXAM: GENERAL: Weak, awake oriented x 1, chronically ill-appearing HEENT: EOMI, Sclera non icteric, moist mucosa NECK: Supple, no JVD, trachea midline LUNGS: Diminished, breath sounds bilaterally. No wheezes HEART: Regular rate and rhythm. Normal S1 and S2, without murmurs ABD: Abdomen soft, nontender. Bowel sounds present. : Mc in place. SKIN: Large wounds yellowish in color with erythema to inner thighs. EXT: No clubbing cyanosis or edema. Bilateral TMA. NEURO: Oriented to person, does not follow command. Speech is clear slurred, unable to move lower extremities, limited upper extremities movement at baseline per . Vital Signs (last 8hr) Date Time Temp Pulse Resp B/P (MAP) Pulse Ox O2 Delivery O2 Flow Rate FiO2 07/03/24 11:57 99.0 83 20 157/68 98 Room Air 21 07/03/24 11:44 82 18 07/03/24 11:44 82 18 N/A Room Air 21 07/03/24 08:00 98.1 80 20 134/58 98 Room Air 21 07/03/24 08:00 98 Room Air* 0 07/03/24 07:46 82 20 07/03/24 07:45 82 18 N/A Room Air 21 LABS: Hematology Labs: Test 07/02/24 07:09 Range/Units White Blood Count 8.1 4.8-10.8 K/uL Red Blood Count 2.61 L 4.50-6.20 MIL/uL Hemoglobin 7.3 L 14.0-18.0 g/dL Hematocrit 23.7 L 42-54 % Mean Corpuscular Volume 90.8 79-99 fL Mean Corpuscular Hemoglobin 28.0 27.0-33.0 pg Mean Corpuscular Hemoglobin Concent 30.8 L 32.0-36.0 g/dL Red Cell Distribution Width 21.4 H 11.0-15.5 % Platelet Count 135 130-400 K/uL Mean Platelet Volume 10.2 7.5-10.5 fL Immature Granulocyte % (Auto) 4.1 H 0-1 % Neutrophils (%) (Auto) 76.2 40.0-77.0 % Lymphocytes (%) (Auto) 12.0 L 21.0-51.0 % Monocytes (%) (Auto) 5.8 3.0-13.0 % Eosinophils (%) (Auto) 1.8 0.0-8.0 % Basophils (%) (Auto) 0.1 0.0-5.0 % Neutrophils # (Auto) 6.2 1.8-7.7 K/uL Lymphocytes # (Auto) 1.0 1.0-4.8 K/uL Monocytes # (Auto) 0.5 0.1-1.0 K/uL Eosinophils # (Auto) 0.15 0.00-0.70 K/uL Basophils # (Auto) 0.01 0.00-0.20 K/uL Absolute Immature Granulocyte (auto 0.33 0-1 K/uL Nucleated Red Blood Cells 0.0 0.0-0.19 % Chemistry Labs: Test 07/03/24 07:37 07/02/24 11:49 Range/Units Sodium Level 139 136-145 mmol/L Potassium Level 6.0 *H 3.5-5.1 mmol/L Chloride Level 106 101-111 mmol/L Carbon Dioxide Level 30 21-32 mmol/L Blood Urea Nitrogen 38 H 7-18 mg/dL Creatinine 1.5 H 0.5-1.3 mg/dL Glomerular Filtration Rate Calc 50 >90 mL/min Random Glucose 283 H 70-105 mg/dL Total Calcium 7.4 L 8.5-10.1 mg/dL Total Bilirubin 0.9 0.2-1.0 mg/dL Aspartate Amino Transf (AST/SGOT) 35 10-37 U/L Alanine Aminotransferase (ALT/SGPT) 60 12-78 U/L Alkaline Phosphatase 290 H 50-136 U/L Total Protein 4.7 L 6.0-8.3 g/dL Albumin 1.5 L 3.5-5.0 g/dL DIAGNOSTICS / RADIOLOGY RESULTS: [pending CXR] PLAN NEURO: Minimize central acting medications as possible. Maintain fall precautions, adequate lighting during the day PULMONARY: Supplemental 02 as needed. Maintain aspiration precautions at all times CARDIOVASCULAR: Follow hemodynamics. Vital signs per facility protocol GI & NUTRITION: Continue with nutritional support. Continue stool softeners and laxatives as needed. KIDNEYS & ELECTROLYTES: Strict monitoring of intake, output and overall fluid balance. Avoid nephrotoxic medications to the extent possible. Medications to be dosed according to renal function. Monitor electrolytes and replace as needed ENDOCRINE: Maintain blood glucose between 100-180 at all times. Hypoglycemia protocol in place INFECTIOUS DISEASE: Trend temperature, WBC and procalcitonin level Follow cultures, deescalate antibiotics as soon as possible. Panculture if new onset fever ONCOLOGY/HEMATOLOGY/COAGULATION: Monitor for s/s of bleeding Monitor hemoglobin, coagulation studies as needed SKIN: Pressure ulcer prevention per facility protocol Specialty mattress ORTHO/REHAB: Continue PT/OT Prophylaxis: Continue GI and DVT prophylaxis Code Status: Full Resuscitation Disposition: [facility] once medically stable for discharge. SALLIE SHIELDS Jul 03, 2024 13:21
--- NOTE | 2024-07-03 14:12 | HMCIMG ---
INDICATION: sob TECHNIQUE: CHEST 1VW COMPARISON: 06/28/2024 FINDINGS/IMPRESSION: Prominent bilateral interstitial markings which may represent bronchitis or vascular congestion in the proper clinical setting. Left PICC line terminating in the SVC. Cardiac silhouette is within normal limits. Mild degenerative changes of the spine. The visualized upper abdomen appears unremarkable.
[2024-07-03 14:31] LABS: CREATININE 1.5 mg/dL (0.5-1.3); POTASSIUM 5.7 mmol/L (3.5-5.1)
--- NOTE | 2024-07-03 15:47 | PN ---
INFECTIOUS DISEASE PROGRESS NOTE Date of Service: Jul 03, 2024 SUBJECTIVE: This is a 68-year-old male patient who was seen and examined at bedside in room 317. Patient in no respiratory distress. Patient currently continues on the Zyvox IV and fluconazole p.o. A low-grade fever of 100.0 reported last night but no fever this morning, temperature is 98.1. No reports of nausea or vomiting and head of bed maintained elevated due to continuous feeding tube Glucerna at 55 mL/hour. The stool culture came back positive for Cindy albicans and was negative for ova and parasite. Will continue to follow patient's care. PHYSICAL EXAM EYES: Anicteric. Pupils equal and reactive. 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 HENT: No oral thrush seen, moist Oral mucosa NECK: Supple, no JVD or thyromegaly. LUNGS: Good air entry. No rales, no rhonchi. Oxygen support. CARDIOVASCULAR: S1, S2 regular. No murmur heard. ABDOMEN: Soft, non tender, bowel sounds present, no organomegaly. Peg tube. CENTRAL NERVOUS SYSTEM: Awake, alert, oriented x 3. SKIN: No rashes, no swelling. LYMPHATICS: No peripheral lymphadenopathy MUSCULOSKELETAL: No joint swelling, erythema or tenderness. EXTREMITIES: No cyanosis or clubbing. Bilateral inner thigh ulcers. BACK: No deformity, no pressure ulcer. GENITOURINARY: No dysuria or hematuria. Vital Sign (Last 12 Hours) 07/03/24 07/03/24 07/03/24 07/03/24 04:00 07:45 07:46 08:00 Temp 98.6 Pulse 81 82 82 Resp 20 18 20 B/P (MAP) 145/57 Pulse Ox 100 98 O2 Delivery Room Air N/A Room Air Room Air* O2 Flow Rate 0 FiO2 21 21 07/03/24 07/03/24 07/03/24 07/03/24 08:00 11:44 11:44 11:57 Temp 98.1 99.0 Pulse 80 82 82 83 Resp 20 18 18 20 B/P (MAP) 134/58 157/68 Pulse Ox 98 98 O2 Delivery Room Air N/A Room Air Room Air FiO2 21 21 21 Intake & Output (last 24hrs) 07/02/24 07/02/24 07/03/24 15:00 23:00 07:00 Intake Total 275 ml 925.0 ml Output Total 1200 ml 1000 ml Balance -1200 ml -725 ml 925.0 ml LABS: Laboratory: Test 07/03/24 14:16 07/02/24 11:49 07/02/24 11:46 07/02/24 07:09 Range/Units Sodium Level 138 136-145 mmol/L Potassium Level 5.7 H 3.5-5.1 mmol/L Chloride Level 106 101-111 mmol/L Carbon Dioxide Level 29 21-32 mmol/L Blood Urea Nitrogen 37 H 7-18 mg/dL Creatinine 1.5 H 0.5-1.3 mg/dL Glomerular Filtration Rate Calc 50 >90 mL/min Random Glucose 273 H 70-105 mg/dL Total Calcium 7.3 L 8.5-10.1 mg/dL Total Bilirubin 0.9 0.2-1.0 mg/dL Aspartate Amino Transf (AST/SGOT) 35 10-37 U/L Alanine Aminotransferase (ALT/SGPT) 60 12-78 U/L Alkaline Phosphatase 290 H 50-136 U/L Total Protein 4.7 L 6.0-8.3 g/dL Albumin 1.5 L 3.5-5.0 g/dL Blood Gas Specimen Type Arterial Arterial Blood pH 7.518 H 7.350-7.450 Arterial Blood Partial Pressure CO2 35 35-48 mmHg Arterial Blood Partial Pressure O2 85.4 83.0-108.0 mmHg Arterial Blood HCO3 27.5 21.0-28.0 mmol/L Arterial Blood Oxygen Saturation 97.3 94.0-98.0 % Arterial Blood Base Excess 4.8 H -2.0-3.0 mmol/L Blood Gas Temperature 37.0 35.5-37.0 CELSIUS Blood Gas Vent Mode RA ROOM AIR FiO2 21.0 % Blood Gas Specimen Comment IVELISSE White Blood Count 8.1 4.8-10.8 K/uL Red Blood Count 2.61 L 4.50-6.20 MIL/uL Hemoglobin 7.3 L 14.0-18.0 g/dL Hematocrit 23.7 L 42-54 % Mean Corpuscular Volume 90.8 79-99 fL Mean Corpuscular Hemoglobin 28.0 27.0-33.0 pg Mean Corpuscular Hemoglobin Concent 30.8 L 32.0-36.0 g/dL Red Cell Distribution Width 21.4 H 11.0-15.5 % Platelet Count 135 130-400 K/uL Mean Platelet Volume 10.2 7.5-10.5 fL Immature Granulocyte % (Auto) 4.1 H 0-1 % Neutrophils (%) (Auto) 76.2 40.0-77.0 % Lymphocytes (%) (Auto) 12.0 L 21.0-51.0 % Monocytes (%) (Auto) 5.8 3.0-13.0 % Eosinophils (%) (Auto) 1.8 0.0-8.0 % Basophils (%) (Auto) 0.1 0.0-5.0 % Neutrophils # (Auto) 6.2 1.8-7.7 K/uL Lymphocytes # (Auto) 1.0 1.0-4.8 K/uL Monocytes # (Auto) 0.5 0.1-1.0 K/uL Eosinophils # (Auto) 0.15 0.00-0.70 K/uL Basophils # (Auto) 0.01 0.00-0.20 K/uL Absolute Immature Granulocyte (auto 0.33 0-1 K/uL Nucleated Red Blood Cells 0.0 0.0-0.19 % ASSESSMENT: Bilateral thigh ulcers infection with Enterococcus faecalis and Cindy albicans. Urinary tract infection with yeast species. Diabetes mellitus. Right eye blindness. Anemia. Chronic renal failure PLAN: Continue linezolid IV q.12 hours. Continue fluconazole 200 mg per PEG tube daily. Continue oxygen support. Continue bronchodilators. Continue monitoring blood sugar levels. Continue wound care. Continue nutritional support, currently on tube feedings with Glucerna. Will Monitor electrolytes. This case was reviewed and discussed with my supervising physician and the above assessment and plan was formulated and agreed upon. ATTESTATION BY PHYSICIAN I have seen and examined the patient. I reviewed the documentation, medical decision making, and treatment plan as noted by the mid-level provider above. I agree with the findings and plan of care. HECTOR FINLEY MD, [facility] Jul 03, 2024 15:47
[2024-07-04] VITALS (13 sets, daily range): BP systolic 108–138; BP diastolic 43–81; PULSE 77–92; RESP 16–20; TEMP 97.9–99.6; O2SAT 96–100
[2024-07-04] MEDS: NA ZIRCON CYCLOSIL(LOKELMA 10GM) PO ONE ×2 (03:57→03:59)
[2024-07-04] MEDS ORDERED: NA ZIRCON CYCLOSIL(LOKELMA 10GM) PO ONE (04:00)
--- NOTE | 2024-07-04 11:37 | PN ---
[facility] PROGRESS NOTE Date Patient Seen: Jul 04, 2024 Time of Visit: 11:28 Supervising Physician: [Dr. French] Primary Care Physician: Dr. Huey Frank Outpatient Specialists: Inpatient Consults: Infectious disease Wound Care PROBLEM LIST: Sepsis without septic shock, POA Acute complicated cystitis, POA with outpatient mc Large wounds to upper inner thighs, POA Aspiration pneumonia, POA s/p peg tube placement on 06/20/2024 Acute infectious metabolic encephalopathy, POA Acute hypernatremia, Na-153, corrected ANJU on CKD stage 3b, GFR 33 POA (GFR 43 on 06/22/2024. GFR 14 on 06/03/2024) Hyperkalemia, treated Oral thrush, POA Anemia chronic disease Thrombocytopenia Debility/frailty/general body weakness Diabetes mellitus with hyperglycemia, A1c 8.5 on 06/11/24 LVEF 60-65, left ventricular diastolic dysfunction is indeterminate. Left atrium size is mildly dilated, per echo on 06/04/2024 Protein calorie malnutrition/hypoalbuminemia Chronic problem list: Remote CVA, Hypertension, hyperlipidemia, diabetes mellitus, right eye surgery History of DVT on Xarelto. (normal bilateral lower extremity venous Doppler subtle on 06/17/2024) History of DKA History of in-hospital cardiac arrest (5 minutes) on 06/06/2024 Acute hypoxemic respiratory failure intubated in 06/06/2024 and extubated on 06/15/2024 History of a Gram-negative bacteria, positive Proteus mirabilis History of liver failure with hyperbilirubinemia and thrombocytopenia History of coagulopathy with critically elevated fibrinogen level and thrombocytopenia History of TMA, right eye surgery. Peg tube placement on 06/20/2024 Plan Summary: Continue abx per ID Monitor sodium and potassium, repeat labs in AM Discontinue solumedrol Pending wound culture, continue wound care Supplemental oxygen as needed Duo nebs every 6 hours CPT with nebs Follow urine and blood cultures results Obtain sputum culture Consult wound care team Continue PEG tube feedings, free water flushes of 350 Q4H Levothyroxine 50 mcg daily PT evaluate and treat Cm to refer to [facility] Dispo: [facility] once medically stable for discharge INTERVAL HISTORY: Mr. Blanco is a 68-year-old male with a history of a DM type 2, CVA, DVT, hypertension, CVA, with ESRD requiring dialysis who presented to [facility] for evaluation of general body weakness and low blood pressure per EMS. Per ED physician the patient is coming from [facility] and was sent due to concern for pulmonary congestion and fever. Per staff unknown how low the blood pressure was. Influenza and COVID are negative. Chest x-ray: Prominent interstitial markings are seen with possible superimposed infiltrates. ABGs: PH 7.543, pCO2 34, PO2 106.3, bicarbonate 25.9, O2 98.3, base excess 3.3, on2 L nasal cannula. Remarkable lab results: Hemoglobin 7.5, hematocrit 24.2, RBC 2.64, platelets 126, BUN 45, creatinine 2.1, GFR 33, blood glucose 298, total calcium 7.4, procalcitonin 1.9. UA positive for leuk EST. ED provider request patient be admitted with the diagnosis of pneumonitis, sepsis, and upper respiratory infection. I went to assess the patient at bedside in ED 11. The patient appeared chronically ill, hot to touch, eyes closed, speech is slurred, does not follow command, has tremor to his left hand. Patient's was at bedside and stated that the patient has had a previous stroke and is sometime was oriented to self and sometimes to place. She states his baseline is slurred speech, is not able to move bilateral lower extremity, and has some movement to upper extremities. She stated that the patient has thrush, indwelling Mc that was placed in the hospital and has not been changed. She is requesting water for patient to moist his mouth. had multiple questions which were addressed by me. I informed the of labs, diagnostics, and plan of care. Education done on dysphagia and aspiration precautions. She verbalizes understanding and is in agreement with the plan. Plan and assessment are listed below. 06/07 - patient is seen and evaluated at the bedside. Patient is accompanied by his . Patient is seen sitting up in bed continues to be weak, debilitated, deconditioned secondary to previous stroke. Patient is awake and alert and oriented times. Patient was treated with broad-spectrum antibiotics overnight and as per chart, patient continue with low-grade temperature. Labs show anemia with an H&H of 7.6 x 25.1. Patient's TSH is quite elevated at 24.07. We will resume patient's levothyroxine. Patient's urine culture is positive for UTI. Patient's chest x-ray shows superimposed infiltrates. Patient was resumed back on his PEG tube feedings and thus far tolerating well. On exam patient was noted to have some mild scattered wheezing. Instructed nursing to give a short course of high-dose steroids and duo nebs scheduled times 24 hours. We will repeat a chest x-ray in a.m.. 06/28 Pt is evaluated at bed. He is awake, alert, and oriented but appears weak and chronically ill. His labs reveal hypernatremia at 1:51 a.m. a mildly elevated creatinine of 2.1, with a baseline of 1.8 on 06/16 his pro count was elevated at 1.19, lactic acid is 1.6. His UA was positive for leukocyte esterase. Blood, urine cultures are negative, MRSA screen negative. He has extensive ulcerations to lower extremities which are presumably bed-bound sores, wound care is following. His white count has remained within normal limits, he continues on cefepime vancomycin. 06/29 blood pressure is 129/55 with a heart rate of 95. Patient had fever overnight of 100.6 F, now improved at 97.2 F. Had 1325 mL of urine output overnight with the same negative net fluid balance. Per nursing note, patient's refused for patient to receive Solu-Medrol. His WBC remains normal at 10, hemoglobin 7.2, platelets 130. His sodium is elevated at 153, potassium 4.0, c reatinine is 2.0. His blood sugar has ranged from 200 to 300s overnight., somewhat improved from yesterday. His blood cultures negative times 48 hours, urine culture is positive for 50 K 200 K CFUs, pending final results. MRSA screen is negative. Patient continues on meropenem. He is feeling slightly improved from yesterday, but is still weak and chronically ill. 06/30 blood pressure is 133/56 with a heart rate of 86, afebrile room air. No documented fevers overnight. Urine output was 1900 mL overnight with a net fluid balance of 460 mL. WBCs 10, hemoglobin 7.3, platelets improved to 139. His sodium remains elevated at 153, he has been on half NS for the same. His creatinine is much improved from 2.1-1.6. His alkaline phosphatase is elevated at 315, AST at 45 and ALT at 81. Albumin is low at 1.5. His wound culture is positive for Cindy albicans, negative for anaerobes, pending final result. Blood sugars much improved to 188 today. No cough or phlegm production. 07/01 blood pressure 159/73 with a heart rate of 86, afebrile on room air. Patient had 2075 mL of urine output overnight, creatinine is improved to 1.3. Sodium slightly improved to 151, continues on dextrose for the same. He is pending stool studies and C diff. his wound cultures positive for Cindy albicans, continues on fluconazole per ID. Blood sugar readings are much improved. 07/02 blood pressure 140/61 with a heart rate of 84, afebrile on room air. He had 2650 mL of urine output overnight with a net fluid balance of-590 mL. Hgb was 8 today, hemoglobin 7.3, platelets 135. Patient's sodium is improved to 142 this morning, has hyperkalemia at 5.5. Creatinine is currently at 1.4. His stool is negative for ova and parasites. His Merrem has been discontinued, has been initiated on linezolid per ID, continues on fluconazole. 07/03 blood pressure is 157/68 with a heart rate of 83, afebrile on room air. He had 2600 mL of urine output overnight with a net fluid balance of-2600 mL. His CBC has remained the same, unchanged, does have anemia with hemoglobin 7.3 but is stable. His BMP shows elevated potassium of 6, will address with [facility]. Creatinine is stable at 1.5. His thigh culture is positive for Enterococcus faecalis, continues on linezolid and fluconazole per ID. Sodium levels have improved to WNL. He is pending case management for SNF eval. 07/04 blood pressure is 128/52 with a heart rate of 91, afebrile on room air. Patient had 3600 mL of urine output overnight with a net fluid balance of-1645 mL. CBC has remained within normal limits, hemoglobin 7.3. His potassium is improved from six to 4.8 After administration of Kayexalate. Blood sugar ranges from 181 to 319, continues on basal insulin and ISS. Stool culture was negative for bacterial infection but did show Cindy albicans. Stool O and P was negative, pending C diff study. Patient has been referred to SNF as the is unable to care for him, we will consider long-term placement. Case management is working on same. REVIEW OF SYSTEMS: Unable to obtain ROS from patient due to AMS PHYSICAL EXAM: GENERAL: Weak, awake oriented x 1, chronically ill-appearing HEENT: EOMI, Sclera non icteric, moist mucosa NECK: Supple, no JVD, trachea midline LUNGS: Diminished, breath sounds bilaterally. No wheezes HEART: Regular rate and rhythm. Normal S1 and S2, without murmurs ABD: Abdomen soft, nontender. Bowel sounds present. : Mc in place. SKIN: Large wounds yellowish in color with erythema to inner thighs. EXT: No clubbing cyanosis or edema. Bilateral TMA. NEURO: Oriented to person, does not follow command. Speech is clear slurred, unable to move lower extremities, limited upper extremities movement at baseline per . Vital Signs (last 8hr) Date Time Temp Pulse Resp B/P (MAP) Pulse Ox O2 Delivery O2 Flow Rate FiO2 07/04/24 11:17 86 18 N/A Room Air 21 07/04/24 11:14 86 18 07/04/24 08:30 98.4 91 19 128/52 100 Room Air 07/04/24 06:26 85 18 N/A Room Air 21 07/04/24 06:26 85 18 07/04/24 04:00 98.1 84 20 138/55 98 Room Air LABS: Chemistry Labs: Test 07/04/24 07:44 07/04/24 05:52 07/03/24 19:18 07/03/24 14:16 Range/Units Potassium Level 4.8 3.5-5.1 mmol/L Whole Blood Glucose 319 #H 70-110 MG/DL Bedside Glucose Comment Notified Nurse Sodium Level 138 136-145 mmol/L Chloride Level 106 101-111 mmol/L Carbon Dioxide Level 29 21-32 mmol/L Blood Urea Nitrogen 37 H 7-18 mg/dL Creatinine 1.5 H 0.5-1.3 mg/dL Glomerular Filtration Rate Calc 50 >90 mL/min Random Glucose 273 H 70-105 mg/dL Total Calcium 7.3 L 8.5-10.1 mg/dL Test 07/02/24 11:49 Range/Units Total Bilirubin 0.9 0.2-1.0 mg/dL Aspartate Amino Transf (AST/SGOT) 35 10-37 U/L Alanine Aminotransferase (ALT/SGPT) 60 12-78 U/L Alkaline Phosphatase 290 H 50-136 U/L Total Protein 4.7 L 6.0-8.3 g/dL Albumin 1.5 L 3.5-5.0 g/dL DIAGNOSTICS / RADIOLOGY RESULTS: [Reviewed] PLAN NEURO: Minimize central acting medications as possible. Maintain fall precautions, adequate lighting during the day PULMONARY: Supplemental 02 as needed. Maintain aspiration precautions at all times CARDIOVASCULAR: Follow hemodynamics. Vital signs per facility protocol GI & NUTRITION: Continue with nutritional support. Continue stool softeners and laxatives as needed. KIDNEYS & ELECTROLYTES: Strict monitoring of intake, output and overall fluid balance. Avoid nephrotoxic medications to the extent possible. Medications to be dosed according to renal function. Monitor electrolytes and replace as needed ENDOCRINE: Maintain blood glucose between 100-180 at all times. Hypoglycemia protocol in place INFECTIOUS DISEASE: Trend temperature, WBC and procalcitonin level Follow cultures, deescalate antibiotics as soon as possible. Panculture if new onset fever ONCOLOGY/HEMATOLOGY/COAGULATION: Monitor for s/s of bleeding Monitor hemoglobin, coagulation studies as needed SKIN: Pressure ulcer prevention per facility protocol Specialty mattress ORTHO/REHAB: Continue PT/OT Prophylaxis: Continue GI and DVT prophylaxis Code Status: Full Resuscitation Disposition: [facility] once medically stable for discharge. SALLIE SHIELDS Jul 04, 2024 11:37
--- NOTE | 2024-07-04 19:08 | PN ---
INFECTIOUS DISEASE PROGRESS NOTE Date of Service: Jul 04, 2024 SUBJECTIVE: This is a 68-year-old male patient who was seen and examined at bedside in room 317. Patient is awake with head of the bed elevated. Patient's visiting at bedside. Patient is afebrile, temperature is 98.9. Continues on the Zyvox IV and fluconazole p.o. No reports of nausea or vomiting. Will continue to follow patient's care. PHYSICAL EXAM EYES: Anicteric. Pupils equal and reactive. 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 HENT: No oral thrush seen, moist Oral mucosa NECK: Supple, no JVD or thyromegaly. LUNGS: Good air entry. No rales, no rhonchi. Oxygen support. CARDIOVASCULAR: S1, S2 regular. No murmur heard. ABDOMEN: Soft, non tender, bowel sounds present, no organomegaly. Peg tube. CENTRAL NERVOUS SYSTEM: Awake, alert, oriented x 3. SKIN: No rashes, no swelling. LYMPHATICS: No peripheral lymphadenopathy MUSCULOSKELETAL: No joint swelling, erythema or tenderness. EXTREMITIES: No cyanosis or clubbing. Bilateral inner thigh ulcers. BACK: No deformity, no pressure ulcer. GENITOURINARY: No dysuria or hematuria. Vital Sign (Last 12 Hours) 07/04/24 07/04/24 07/04/24 07/04/24 08:30 10:30 11:14 11:17 Temp 98.4 Pulse 91 86 86 Resp 19 18 18 B/P (MAP) 128/52 Pulse Ox 100 100 O2 Delivery Room Air Room Air* N/A Room Air O2 Flow Rate 0 FiO2 21 21 07/04/24 07/04/24 07/04/24 07/04/24 12:00 16:45 18:52 18:52 Temp 98.4 99.7 Pulse 85 82 77 77 Resp 19 19 18 18 B/P (MAP) 123/51 125/81 Pulse Ox 99 100 O2 Delivery Room Air Room Air N/A Room Air FiO2 21 Intake & Output (last 24hrs) 07/03/24 07/03/24 07/04/24 15:00 23:00 07:00 Intake Total 350 ml 1605.0 ml Output Total 2600 ml 1000 ml Balance -2600 ml -650 ml 1605.0 ml LABS: Laboratory: Test 07/04/24 12:35 07/04/24 07:44 07/03/24 19:18 07/03/24 14:16 Range/Units Whole Blood Glucose 259 H 70-110 MG/DL Potassium Level 4.8 3.5-5.1 mmol/L Bedside Glucose Comment Notified Nurse Sodium Level 138 136-145 mmol/L Chloride Level 106 101-111 mmol/L Carbon Dioxide Level 29 21-32 mmol/L Blood Urea Nitrogen 37 H 7-18 mg/dL Creatinine 1.5 H 0.5-1.3 mg/dL Glomerular Filtration Rate Calc 50 >90 mL/min Random Glucose 273 H 70-105 mg/dL Total Calcium 7.3 L 8.5-10.1 mg/dL ASSESSMENT: Bilateral thigh ulcers infection with Enterococcus faecalis and Cindy albicans. Urinary tract infection with yeast species. Pneumonia. Diabetes mellitus. Right eye blindness. Anemia. Chronic renal failure PLAN: Continue linezolid IV q.12 hours. Continue fluconazole 200 mg per PEG tube daily. Continue oxygen support. Continue bronchodilators. Continue monitoring blood sugar levels. Continue wound care. Continue nutritional support, currently on tube feedings with Glucerna. Will Monitor electrolytes. This case was reviewed and discussed with my supervising physician and the above assessment and plan was formulated and agreed upon. ATTESTATION BY PHYSICIAN I have seen and examined the patient. I reviewed the documentation, medical decision making, and treatment plan as noted by the mid-level provider above. I agree with the findings and plan of care. HECTOR FINLEY MD, MIRTA L CUSHION STUFFER Jul 04, 2024 19:08
[2024-07-04] MEDS: CILOstazol 100 MG TAB PEG SCH (20:09)
[2024-07-04] MEDS: atorVAStatin 40 MG TABLET PEG SCH (20:09)
[2024-07-04] MEDS ORDERED: RIVAROXABAN 2.5 MG TABLET GT SCH (21:00)
[2024-07-05] VITALS (15 sets, daily range): BP systolic 111–135; BP diastolic 44–63; PULSE 85–109; RESP 17–20; TEMP 98.1–99; O2SAT 6–100
[2024-07-05 05:09] LABS: BASOPHILS # (AUTO) 0.02 K/uL (0.00-0.20); BASOPHILS % (AUTO) 0.2 % (0.0-5.0); EOSINOPHILS % (AUTO) 2.1 % (0.0-8.0); IMMATURE GRANULOCYTE ABSOLUTE 0.58 K/uL (0-1); LYMPHOCYTES # (AUTO) 1.1 K/uL (1.0-4.8); LYMPHOCYTES % (AUTO) 11.3 % (21.0-51.0); MEAN CORPUSCULAR HEMOGLOBIN 27.7 pg (27.0-33.0); MEAN CORPUSCULAR HGB CONC 31.6 g/dL (32.0-36.0); MEAN CORPUSCULAR VOLUME 87.8 fL (79-99); MONOCYTES # (AUTO) 0.6 K/uL (0.1-1.0); MONOCYTES % (AUTO) 6.4 % (3.0-13.0); NEUTROPHILS % (AUTO) 73.9 % (40.0-77.0); PLATELET COUNT (AUTO) 196 K/uL (130-400); RED BLOOD CELL COUNT(AUTO) 2.38 MIL/uL (4.50-6.20); RED CELL DISTRIBUTION WIDTH 20.3 % (11.0-15.5); WHITE BLOOD COUNT (AUTO) 9.5 K/uL (4.8-10.8)
[2024-07-05 05:20] LABS: ALBUMIN 1.3 g/dL (3.5-5.0); BILIRUBIN,TOTAL 0.8 mg/dL (0.2-1.0); CREATININE 1.6 mg/dL (0.5-1.3); MAGNESIUM 2.1 mg/dL (1.80-2.40); POTASSIUM 5.2 mmol/L (3.5-5.1); TOTAL PROTEIN, SERUM 4.8 g/dL (6.0-8.3)
[2024-07-05 05:27] LABS: HEMATOCRIT 20.9 % (42-54)
[2024-07-05] MEDS: ALBUTEROL 0.083% 2.5 MG/3 ML INH IH STA (06:08)
[2024-07-05] MEDS: LoSARTan 25 MG TABLET PO SCH (08:04)
[2024-07-05] MEDS: Vitamin B Complex/Vit C/Folic Acid GT SCH (08:27)
--- NOTE | 2024-07-05 14:16 | PN ---
[facility] PROGRESS NOTE Date Patient Seen: Jul 05, 2024 Time of Visit: 14:16 Supervising Physician: Dr. Zaid French Primary Care Physician: Dr. Huey Frank Outpatient Specialists: Inpatient Consults: Infectious disease Wound Care PROBLEM LIST: Sepsis without septic shock, POA Acute complicated cystitis, POA with outpatient mc Large wounds to upper inner thighs, POA Aspiration pneumonia, POA s/p peg tube placement on 06/20/2024 Acute infectious metabolic encephalopathy, POA Acute hypernatremia, Na-153, corrected ANJU on CKD stage 3b, GFR 33 POA (GFR 43 on 06/22/2024. GFR 14 on 06/03/2024) Hyperkalemia, treated Oral thrush, POA Anemia chronic disease Thrombocytopenia Debility/frailty/general body weakness Diabetes mellitus with hyperglycemia, A1c 8.5 on 06/11/24 LVEF 60-65, left ventricular diastolic dysfunction is indeterminate. Left atrium size is mildly dilated, per echo on 06/04/2024 Protein calorie malnutrition/hypoalbuminemia Chronic problem list: Remote CVA, Hypertension, hyperlipidemia, diabetes mellitus, right eye surgery History of DVT on Xarelto. (normal bilateral lower extremity venous Doppler subtle on 06/17/2024) History of DKA History of in-hospital cardiac arrest (5 minutes) on 06/06/2024 Acute hypoxemic respiratory failure intubated in 06/06/2024 and extubated on 06/15/2024 History of a Gram-negative bacteria, positive Proteus mirabilis History of liver failure with hyperbilirubinemia and thrombocytopenia History of coagulopathy with critically elevated fibrinogen level and thromb ocytopenia History of TMA, right eye surgery. Peg tube placement on 06/20/2024 Plan Summary: Continue abx per ID Tylenol p.r.n. for fevers Pending speech consultation for swallow study Monitor sodium and potassium, repeat labs in AM Discontinue solumedrol Pending wound culture, continue wound care Supplemental oxygen as needed Duo nebs every 6 hours CPT with nebs Follow urine and blood cultures results Obtain sputum culture Consult wound care team Continue PEG tube feedings, free water flushes of 350 Q4H Levothyroxine 50 mcg daily PT evaluate and treat Cm to refer to [facility] Dispo: [facility] once medically stable for discharge INTERVAL HISTORY: Patient was evaluated at bedside with present. Patient continues with confusion, currently on room air and receiving breathing treatment at the time of evaluation. Patient has left inner thigh wound continues with treatment performed by the , states that she has not seen wound care during this admission. Per chart review wound care visited the patient on the , no further notes at this time. I have asked the nurse to reach out to wound care for continued management of the left inner thigh wound as well as multiple other wounds on the patient. Patient was receiving transfusion of 1 unit PRBCs today for hemoglobin of 6.6. Patient has had mild spiking fevers for the last 24-48 hours as reported by the , adding Tylenol p.r.n. for fevers at this time. Discussion was held regarding the patient's diagnosis of infectious encephalopathy as well as regarding the treatment plan for the patient which the is in agreement with. REVIEW OF SYSTEMS: Unable to obtain ROS from patient due to AMS PHYSICAL EXAM: GENERAL: Weak, awake oriented x 1, chronically ill-appearing HEENT: EOMI, Sclera non icteric, moist mucosa NECK: Supple, no JVD, trachea midline LUNGS: Diminished, breath sounds bilaterally. No wheezes HEART: Regular rate and rhythm. Normal S1 and S2, without murmurs ABD: Abdomen soft, nontender. Bowel sounds present. : Mc in place. SKIN: Large wounds yellowish in color with erythema to inner thighs. EXT: No clubbing cyanosis or edema. Bilateral TMA. NEURO: Oriented to person, does not follow command. Speech is clear slurred, unable to move lower extremities, limited upper extremities movement at baseline per . Vital Signs (last 8hr) Date Time Temp Pulse Resp B/P (MAP) Pulse Ox O2 Delivery O2 Flow Rate FiO2 07/05/24 11:35 98.1 102 18 116/47 98 Room Air 07/05/24 11:05 95 18 N/A Room Air 21 07/05/24 11:04 96 18 07/05/24 08:55 97 Room Air* 0 07/05/24 08:17 98.8 109 18 116/51 97 Room Air LABS: Hematology Labs: Test 07/05/24 04:52 Range/Units White Blood Count 9.5 4.8-10.8 K/uL Red Blood Count 2.38 L 4.50-6.20 MIL/uL Hemoglobin 6.6 *L 14.0-18.0 g/dL Hematocrit 20.9 *L 42-54 % Mean Corpuscular Volume 87.8 79-99 fL Mean Corpuscular Hemoglobin 27.7 27.0-33.0 pg Mean Corpuscular Hemoglobin Concent 31.6 L 32.0-36.0 g/dL Red Cell Distribution Width 20.3 H 11.0-15.5 % Platelet Count 196 # 130-400 K/uL Mean Platelet Volume 10.4 7.5-10.5 fL Immature Granulocyte % (Auto) 6.1 H 0-1 % Neutrophils (%) (Auto) 73.9 40.0-77.0 % Lymphocytes (%) (Auto) 11.3 L 21.0-51.0 % Monocytes (%) (Auto) 6.4 3.0-13.0 % Eosinophils (%) (Auto) 2.1 0.0-8.0 % Basophils (%) (Auto) 0.2 0.0-5.0 % Neutrophils # (Auto) 7.0 1.8-7.7 K/uL Lymphocytes # (Auto) 1.1 1.0-4.8 K/uL Monocytes # (Auto) 0.6 0.1-1.0 K/uL Eosinophils # (Auto) 0.20 0.00-0.70 K/uL Basophils # (Auto) 0.02 0.00-0.20 K/uL Absolute Immature Granulocyte (auto 0.58 0-1 K/uL Nucleated Red Blood Cells 0.0 0.0-0.19 % Chemistry Labs: Test 07/05/24 12:08 07/05/24 04:52 07/03/24 19:18 Range/Units Whole Blood Glucose 269 H 70-110 MG/DL Sodium Level 134 L 136-145 mmol/L Potassium Level 5.2 H 3.5-5.1 mmol/L Chloride Level 99 L 101-111 mmol/L Carbon Dioxide Level 28 21-32 mmol/L Blood Urea Nitrogen 41 H 7-18 mg/dL Creatinine 1.6 H 0.5-1.3 mg/dL Glomerular Filtration Rate Calc 46 >90 mL/min Random Glucose 353 H 70-105 mg/dL Total Calcium 7.4 L 8.5-10.1 mg/dL Magnesium Level 2.10 1.80-2.40 mg/dL Total Bilirubin 0.8 0.2-1.0 mg/dL Aspartate Amino Transf (AST/SGOT) 51 H 10-37 U/L Alanine Aminotransferase (ALT/SGPT) 60 12-78 U/L Alkaline Phosphatase 289 H 50-136 U/L Total Protein 4.8 L 6.0-8.3 g/dL Albumin 1.3 L 3.5-5.0 g/dL Bedside Glucose Comment Notified Nurse DIAGNOSTICS / RADIOLOGY RESULTS: [ ] PLAN NEURO: Minimize central acting medications as possible. Maintain fall precautions, adequate lighting during the day PULMONARY: Supplemental 02 as needed. Maintain aspiration precautions at all times CARDIOVASCULAR: Follow hemodynamics. Vital signs per facility protocol GI & NUTRITION: Continue with nutritional support. Continue stool softeners and laxatives as needed. KIDNEYS & ELECTROLYTES: Strict monitoring of intake, output and overall fluid balance. Avoid nephrotoxic medications to the extent possible. Medications to be dosed according to renal function. Monitor electrolytes and replace as needed ENDOCRINE: Maintain blood glucose between 100-180 at all times. Hypoglycemia protocol in place INFECTIOUS DISEASE: Trend temperature, WBC and procalcitonin level Follow cultures, deescalate antibiotics as soon as possible. Panculture if new onset fever ONCOLOGY/HEMATOLOGY/COAGULATION: Monitor for s/s of bleeding Monitor hemoglobin, coagulation studies as needed SKIN: Pressure ulcer prevention per facility protocol Specialty mattress ORTHO/REHAB: Continue PT/OT Prophylaxis: Continue GI and DVT prophylaxis Code Status: Full Resuscitation Disposition: [facility] once medically stable for discharge. VALE SHEPARD Jul 05, 2024 14:16
--- NOTE | 2024-07-05 20:12 | PN ---
INFECTIOUS DISEASE PROGRESS NOTE Date of Service: Jul 05, 2024 SUBJECTIVE: This is a 68-year-old male patient who was seen and examined at bedside in room 317. Patient is awake with head of the bed elevated. During visit today patient was being transfused with 1 unit of PRBC for hemoglobin of 6.6. No dyspnea observed and patient is saturating 98% on room air. No fever reported this morning, temperature is 98.8 and a WBC of 9.5. Continues on the Zyvox IV and fluconazole p.o. Will continue to follow patient's care. PHYSICAL EXAM EYES: Anicteric. Pupils equal and reactive. 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 HENT: No oral thrush seen, moist Oral mucosa NECK: Supple, no JVD or thyromegaly. LUNGS: Good air entry. No rales, no rhonchi. Oxygen support. CARDIOVASCULAR: S1, S2 regular. No murmur heard. ABDOMEN: Soft, non tender, bowel sounds present, no organomegaly. Peg tube. CENTRAL NERVOUS SYSTEM: Awake, alert, oriented x 3. SKIN: No rashes, no swelling. LYMPHATICS: No peripheral lymphadenopathy MUSCULOSKELETAL: No joint swelling, erythema or tenderness. EXTREMITIES: No cyanosis or clubbing. Bilateral inner thigh ulcers. BACK: No deformity, no pressure ulcer. GENITOURINARY: No dysuria or hematuria. Vital Sign (Last 12 Hours) 07/05/24 07/05/24 07/05/24 07/05/24 08:17 08:55 11:04 11:05 Temp 98.8 Pulse 109 96 95 Resp 18 18 18 B/P (MAP) 116/51 Pulse Ox 97 97 O2 Delivery Room Air Room Air* N/A Room Air O2 Flow Rate 0 FiO2 21 21 07/05/24 07/05/24 07/05/24 07/05/24 11:35 16:07 18:36 18:38 Temp 98.1 98.8 Pulse 102 93 85 89 Resp 18 18 18 18 B/P (MAP) 116/47 120/51 Pulse Ox 98 99 O2 Delivery Room Air Room Air N/A Room Air FiO2 21 Intake & Output (last 24hrs) 07/04/24 07/04/24 07/05/24 15:00 23:00 07:00 Intake Total 350 ml 700 ml 700 ml Output Total 700 ml Balance 350 ml 700 ml 0 ml LABS: Laboratory: Test 07/05/24 17:42 07/05/24 04:52 Range/Units Whole Blood Glucose 247 H 70-110 MG/DL White Blood Count 9.5 4.8-10.8 K/uL Red Blood Count 2.38 L 4.50-6.20 MIL/uL Hemoglobin 6.6 *L 14.0-18.0 g/dL Hematocrit 20.9 *L 42-54 % Mean Corpuscular Volume 87.8 79-99 fL Mean Corpuscular Hemoglobin 27.7 27.0-33.0 pg Mean Corpuscular Hemoglobin Concent 31.6 L 32.0-36.0 g/dL Red Cell Distribution Width 20.3 H 11.0-15.5 % Platelet Count 196 # 130-400 K/uL Mean Platelet Volume 10.4 7.5-10.5 fL Immature Granulocyte % (Auto) 6.1 H 0-1 % Neutrophils (%) (Auto) 73.9 40.0-77.0 % Lymphocytes (%) (Auto) 11.3 L 21.0-51.0 % Monocytes (%) (Auto) 6.4 3.0-13.0 % Eosinophils (%) (Auto) 2.1 0.0-8.0 % Basophils (%) (Auto) 0.2 0.0-5.0 % Neutrophils # (Auto) 7.0 1.8-7.7 K/uL Lymphocytes # (Auto) 1.1 1.0-4.8 K/uL Monocytes # (Auto) 0.6 0.1-1.0 K/uL Eosinophils # (Auto) 0.20 0.00-0.70 K/uL Basophils # (Auto) 0.02 0.00-0.20 K/uL Absolute Immature Granulocyte (auto 0.58 0-1 K/uL Nucleated Red Blood Cells 0.0 0.0-0.19 % Sodium Level 134 L 136-145 mmol/L Potassium Level 5.2 H 3.5-5.1 mmol/L Chloride Level 99 L 101-111 mmol/L Carbon Dioxide Level 28 21-32 mmol/L Blood Urea Nitrogen 41 H 7-18 mg/dL Creatinine 1.6 H 0.5-1.3 mg/dL Glomerular Filtration Rate Calc 46 >90 mL/min Random Glucose 353 H 70-105 mg/dL Total Calcium 7.4 L 8.5-10.1 mg/dL Magnesium Level 2.10 1.80-2.40 mg/dL Total Bilirubin 0.8 0.2-1.0 mg/dL Aspartate Amino Transf (AST/SGOT) 51 H 10-37 U/L Alanine Aminotransferase (ALT/SGPT) 60 12-78 U/L Alkaline Phosphatase 289 H 50-136 U/L Total Protein 4.8 L 6.0-8.3 g/dL Albumin 1.3 L 3.5-5.0 g/dL ASSESSMENT: Bilateral thigh ulcers infection with Enterococcus faecalis and Cindy albicans. Urinary tract infection with yeast species. Pneumonia. Diabetes mellitus. Right eye blindness. Anemia. Chronic renal failure PLAN: Continue linezolid IV q.12 hours. Continue fluconazole 200 mg per PEG tube daily. Continue oxygen support. Continue bronchodilators. Continue monitoring blood sugar levels. Continue wound care. Continue nutritional support, currently on tube feedings with Glucerna. This case was reviewed and discussed with my supervising physician and the above assessment and plan was formulated and agreed upon. ATTESTATION BY PHYSICIAN I have seen and examined the patient. I reviewed the documentation, medical decision making, and treatment plan as noted by the mid-level provider above. I agree with the findings and plan of care. HECTOR FINLEY MD, [facility] Jul 05, 2024 20:12
[2024-07-06] VITALS (15 sets, daily range): BP systolic 118–142; BP diastolic 50–68; PULSE 88–102; RESP 18–20; TEMP 98–100.7; O2SAT 97–99
[2024-07-06 07:01] LABS: BASOPHILS # (AUTO) 0.01 K/uL (0.00-0.20); BASOPHILS % (AUTO) 0.1 % (0.0-5.0); EOSINOPHILS # (AUTO) 0.16 K/uL (0.00-0.70); EOSINOPHILS % (AUTO) 1.8 % (0.0-8.0); HEMATOCRIT 23.9 % (42-54); LYMPHOCYTES # (AUTO) 0.9 K/uL (1.0-4.8); LYMPHOCYTES % (AUTO) 9.6 % (21.0-51.0); MEAN CORPUSCULAR HEMOGLOBIN 28.3 pg (27.0-33.0); MEAN CORPUSCULAR HGB CONC 32.6 g/dL (32.0-36.0); MEAN CORPUSCULAR VOLUME 86.6 fL (79-99); MONOCYTES # (AUTO) 0.5 K/uL (0.1-1.0); MONOCYTES % (AUTO) 5.2 % (3.0-13.0); NEUTROPHILS # (AUTO) 6.9 K/uL (1.8-7.7); NEUTROPHILS % (AUTO) 77.7 % (40.0-77.0); PLATELET COUNT (AUTO) 214 K/uL (130-400); RED BLOOD CELL COUNT(AUTO) 2.76 MIL/uL (4.50-6.20); RED CELL DISTRIBUTION WIDTH 18.6 % (11.0-15.5); WHITE BLOOD COUNT (AUTO) 8.9 K/uL (4.8-10.8)
[2024-07-06 07:14] LABS: CREATININE 1.5 mg/dL (0.5-1.3); POTASSIUM 4.7 mmol/L (3.5-5.1)
[2024-07-06] MEDS: FAMOTIDINE 20MG TAB PEG SCH (09:05)
--- NOTE | 2024-07-06 15:24 | PN ---
[facility] PROGRESS NOTE Date Patient Seen: Jul 06, 2024 Time of Visit: 15:21 Supervising Physician: Dr. Curtis Gillette Primary Care Physician: Dr. Huey Frank Outpatient Specialists: Inpatient Consults: Infectious disease Wound Care PROBLEM LIST: Sepsis without septic shock, POA Acute complicated cystitis, POA with outpatient mc Large wounds to upper inner thighs, POA Aspiration pneumonia, POA s/p peg tube placement on 06/20/2024 Acute infectious metabolic encephalopathy, POA Acute hypernatremia, Na-153, corrected ANJU on CKD stage 3b, GFR 33 POA (GFR 43 on 06/22/2024. GFR 14 on 06/03/2024) Hyperkalemia, treated Oral thrush, POA Anemia chronic disease Thrombocytopenia Debility/frailty/general body weakness Diabetes mellitus with hyperglycemia, A1c 8.5 on 06/11/24 LVEF 60-65, left ventricular diastolic dysfunction is indeterminate. Left atrium size is mildly dilated, per echo on 06/04/2024 Protein calorie malnutrition/hypoalbuminemia Chronic problem list: Remote CVA, Hypertension, hyperlipidemia, diabetes mellitus, right eye surgery History of DVT on Xarelto. (normal bilateral lower extremity venous Doppler subtle on 06/17/2024) History of DKA History of in-hospital cardiac arrest (5 minutes) on 06/06/2024 Acute hypoxemic respiratory failure intubated in 06/06/2024 and extubated on 06/15/2024 History of a Gram-negative bacteria, positive Proteus mirabilis History of liver failure with hyperbilirubinemia and thrombocytopenia History of coagulopathy with critically elevated fibrinogen level and thrombocytopenia History of TMA, right eye surgery. Peg tube placement on 06/20/2024 Plan Summary: Continue abx per ID Tylenol p.r.n. for fevers Pending speech consultation for swallow study Monitor sodium and potassium, repeat labs in AM Discontinue solumedrol Pending wound culture, continue wound care Supplemental oxygen as needed Duo nebs every 6 hours CPT with nebs Follow urine and blood cultures results Obtain sputum culture Consult wound care team Continue PEG tube feedings, free water flushes of 350 Q4H Levothyroxine 50 mcg daily PT evaluate and treat Cm to refer to [facility] Dispo: [facility] once medically stable for discharge INTERVAL HISTORY: Patient is seen at bedside today with present. He does not appear to be in acute distress, per has encephalopathy continues at relatively the same level as it was yesterday. Patient's blood sugars remain elevated today and throughout this admission, he is currently on Lantus 30 a.m., starting today we will increase this to 40 a.m. and 3:00 p.m. in an attempt to better manage the patient's hyperglycemia. Patient's white count today is 8.9, hemoglobin remained stable at 7.8 following a transfusion of 1 unit PRBCs yesterday. Creatinine down slightly from yesterday at 1.5. He continues on linezolid at this time currently pending sniff placement. REVIEW OF SYSTEMS: Unable to obtain ROS from patient due to AMS PHYSICAL EXAM: GENERAL: Weak, awake oriented x 1, chronically ill-appearing HEENT: EOMI, Sclera non icteric, moist mucosa NECK: Supple, no JVD, trachea midline LUNGS: Diminished, breath sounds bilaterally. No wheezes HEART: Regular rate and rhythm. Normal S1 and S2, without murmurs ABD: Abdomen soft, nontender. Bowel sounds present. : Mc in place. SKIN: Large wounds yellowish in color with erythema to inner thighs. EXT: No clubbing cyanosis or edema. Bilateral TMA. NEURO: Oriented to person, does not follow command. Speech is clear slurred, unable to move lower extremities, limited upper extremities movement at baseline per . Vital Signs (last 8hr) Date Time Temp Pulse Resp B/P (MAP) Pulse Ox O2 Delivery O2 Flow Rate FiO2 07/06/24 11:35 100.0 93 18 129/68 100 Room Air 07/06/24 11:05 90 18 07/06/24 08:32 98.8 102 18 121/52 99 Room Air 07/06/24 08:15 99 Room Air* 0 21 LABS: Hematology Labs: Test 07/06/24 06:33 Range/Units White Blood Count 8.9 4.8-10.8 K/uL Red Blood Count 2.76 L 4.50-6.20 MIL/uL Hemoglobin 7.8 L 14.0-18.0 g/dL Hematocrit 23.9 L 42-54 % Mean Corpuscular Volume 86.6 79-99 fL Mean Corpuscular Hemoglobin 28.3 27.0-33.0 pg Mean Corpuscular Hemoglobin Concent 32.6 32.0-36.0 g/dL Red Cell Distribution Width 18.6 H 11.0-15.5 % Platelet Count 214 130-400 K/uL Mean Platelet Volume 10.2 7.5-10.5 fL Immature Granulocyte % (Auto) 5.6 H 0-1 % Neutrophils (%) (Auto) 77.7 H 40.0-77.0 % Lymphocytes (%) (Auto) 9.6 L 21.0-51.0 % Monocytes (%) (Auto) 5.2 3.0-13.0 % Eosinophils (%) (Auto) 1.8 0.0-8.0 % Basophils (%) (Auto) 0.1 0.0-5.0 % Neutrophils # (Auto) 6.9 1.8-7.7 K/uL Lymphocytes # (Auto) 0.9 L 1.0-4.8 K/uL Monocytes # (Auto) 0.5 0.1-1.0 K/uL Eosinophils # (Auto) 0.16 0.00-0.70 K/uL Basophils # (Auto) 0.01 0.00-0.20 K/uL Absolute Immature Granulocyte (auto 0.50 0-1 K/uL Nucleated Red Blood Cells 0.0 0.0-0.19 % White Cell Morphology Comment See comments Red Blood Cell Morphology See comments Chemistry Labs: Test 07/06/24 10:43 07/06/24 06:33 07/05/24 04:52 Range/Units Whole Blood Glucose 287 H 70-110 MG/DL Sodium Level 132 L 136-145 mmol/L Potassium Level 4.7 3.5-5.1 mmol/L Chloride Level 100 L 101-111 mmol/L Carbon Dioxide Level 27 21-32 mmol/L Blood Urea Nitrogen 35 H 7-18 mg/dL Creatinine 1.5 H 0.5-1.3 mg/dL Glomerular Filtration Rate Calc 50 >90 mL/min Random Glucose 372 H 70-105 mg/dL Total Calcium 7.3 L 8.5-10.1 mg/dL Magnesium Level 2.10 1.80-2.40 mg/dL Total Bilirubin 0.8 0.2-1.0 mg/dL Aspartate Amino Transf (AST/SGOT) 51 H 10-37 U/L Alanine Aminotransferase (ALT/SGPT) 60 12-78 U/L Alkaline Phosphatase 289 H 50-136 U/L Total Protein 4.8 L 6.0-8.3 g/dL Albumin 1.3 L 3.5-5.0 g/dL DIAGNOSTICS / RADIOLOGY RESULTS: [ ] PLAN NEURO: Minimize central acting medications as possible. Maintain fall precautions, adequate lighting during the day PULMONARY: Supplemental 02 as needed. Maintain aspiration precautions at all times CARDIOVASCULAR: Follow hemodynamics. Vital signs per facility protocol GI & NUTRITION: Continue with nutritional support. Continue stool softeners and laxatives as needed. KIDNEYS & ELECTROLYTES: Strict monitoring of intake, output and overall fluid balance. Avoid nephrotoxic medications to the extent possible. Medications to be dosed according to renal function. Monitor electrolytes and replace as needed ENDOCRINE: Maintain blood glucose between 100-180 at all times. Hypoglycemia protocol in place INFECTIOUS DISEASE: Trend temperature, WBC and procalcitonin level Follow cultures, deescalate antibiotics as soon as possible. Panculture if new onset fever ONCOLOGY/HEMATOLOGY/COAGULATION: Monitor for s/s of bleeding Monitor hemoglobin, coagulation studies as needed SKIN: Pressure ulcer prevention per facility protocol Specialty mattress ORTHO/REHAB: Continue PT/OT Prophylaxis: Continue GI and DVT prophylaxis Code Status: Full Resuscitation Disposition: [facility] once medically stable for discharge. VALE SHEPARD Jul 06, 2024 15:24
[2024-07-07] VITALS (12 sets, daily range): BP systolic 113–132; BP diastolic 44–71; PULSE 79–101; RESP 18–20; TEMP 98.5–100; O2SAT 99
[2024-07-07 05:01] LABS: HEMATOCRIT 22.2 % (42-54); MEAN CORPUSCULAR HEMOGLOBIN 27.6 pg (27.0-33.0); MEAN CORPUSCULAR VOLUME 86.4 fL (79-99); RED BLOOD CELL COUNT(AUTO) 2.57 MIL/uL (4.50-6.20); RED CELL DISTRIBUTION WIDTH 18.5 % (11.0-15.5); WHITE BLOOD COUNT (AUTO) 8.8 K/uL (4.8-10.8)
[2024-07-07 05:20] LABS: CREATININE 1.6 mg/dL (0.5-1.3); POTASSIUM 4.6 mmol/L (3.5-5.1)
[2024-07-07] MEDS: INSULIN GLARgine 100 UNITS/ML 10 ML VIAL SQ SCH ×2 (10:14→21:00)
[2024-07-07 13:31] LABS: HEMATOCRIT 23.5 % (42-54)
--- NOTE | 2024-07-07 14:43 | NUR ---
SPEECH NOTE: Orders for MBSS received on 07/05/2024; however, cancelled on the same day. MBSS re-ordered on 07/07/2024 for encephalopathy reasons. As per H&P and previous visits, patient with PEG tube placement and on tube feedings. NON [employer]IVE [employer] consulted with charge nurse Maria De Jesus, who reported order is no longer warranted at this time after speaking with Deangelo Wong. All questions answered. Addendum: 07/07/[address] [facility]UC[facility] MELCHOR Amended: Links added.
--- NOTE | 2024-07-07 16:07 | NUR ---
Discharge Planning: Patient accepted at [facility]. CM will notify PCP and nurse. Yellow sheet and PCS flagged and placed in patient's chart.
--- NOTE | 2024-07-07 21:03 | PN ---
[facility] PROGRESS NOTE Date Patient Seen: Jul 07, 2024 Time of Visit: 20:56 Supervising Physician: Dr. Curtis Gillette Primary Care Physician: Dr. Huey Frank Outpatient Specialists: Inpatient Consults: Infectious disease Wound Care PROBLEM LIST: Sepsis without septic shock, POA Acute complicated cystitis, POA with outpatient mc Large wounds to upper inner thighs, POA Aspiration pneumonia, POA s/p peg tube placement on 06/20/2024 Acute infectious metabolic encephalopathy, POA Acute hypernatremia, Na-153, corrected ANJU on CKD stage 3b, GFR 33 POA (GFR 43 on 06/22/2024. GFR 14 on 06/03/2024) Hyperkalemia, treated Oral thrush, POA Anemia chronic disease Thrombocytopenia Debility/frailty/general body weakness Diabetes mellitus with hyperglycemia, A1c 8.5 on 06/11/24 LVEF 60-65, left ventricular diastolic dysfunction is indeterminate. Left atrium size is mildly dilated, per echo on 06/04/2024 Protein calorie malnutrition/hypoalbuminemia Chronic problem list: Remote CVA, Hypertension, hyperlipidemia, diabetes mellitus, right eye surgery History of DVT on Xarelto. (normal bilateral lower extremity venous Doppler subtle on 06/17/2024) History of DKA History of in-hospital cardiac arrest (5 minutes) on 06/06/2024 Acute hypoxemic respiratory failure intubated in 06/06/2024 and extubated on 06/15/2024 History of a Gram-negative bacteria, positive Proteus mirabilis History of liver failure with hyperbilirubinemia and thrombocytopenia History of coagulopathy with critically elevated fibrinogen level and thrombocytopenia History of TMA, right eye surgery. Peg tube placement on 06/20/2024 Plan Summary: Continue abx per ID Tylenol p.r.n. for fevers Pending speech consultation for swallow study Monitor sodium and potassium, repeat labs in AM Discontinue solumedrol Pending wound culture, continue wound care Supplemental oxygen as needed Duo nebs every 6 hours CPT with nebs Follow urine and blood cultures results Obtain sputum culture Consult wound care team Continue PEG tube feedings, free water flushes of 350 Q4H Levothyroxine 50 mcg daily PT evaluate and treat Cm to refer to [facility] Dispo: [facility] once medically stable for discharge INTERVAL HISTORY: Patient evaluated at bedside, present again today. Patient is resting, mild confusion noted, however states he sleeps most of the day and is awake at night and has moments of lucidity at nighttime. Patient's hemoglobin returned today at 7.1, ordering recheck for 1:00 p.m. prior to authorizing transfusion. Patient is still pending [facility] authorization today, however if wits received we may hold off until we can confirm there is no bleed. Patient's reports no dark stools, patient's catheter has no sign of hematuria. We will continue to monitor the patient closely pending [facility] authorization at this time. REVIEW OF SYSTEMS: Unable to obtain ROS from patient due to AMS PHYSICAL EXAM: GENERAL: Weak, awake oriented x 1, chronically ill-appearing HEENT: EOMI, Sclera non icteric, moist mucosa NECK: Supple, no JVD, trachea midline LUNGS: Diminished, breath sounds bilaterally. No wheezes HEART: Regular rate and rhythm. Normal S1 and S2, without murmurs ABD: Abdomen soft, nontender. Bowel sounds present. : Mc in place. SKIN: Large wounds yellowish in color with erythema to inner thighs. EXT: No clubbing cyanosis or edema. Bilateral TMA. NEURO: Oriented to person, does not follow command. Speech is clear slurred, unable to move lower extremities, limited upper extremities movement at baseline per . Vital Signs (last 8hr) Date Time Temp Pulse Resp B/P (MAP) Pulse Ox O2 Delivery O2 Flow Rate FiO2 07/07/24 20:00 99.9 100 20 118/50 98 Room Air 07/07/24 19:16 79 20 N/A Room Air 21 07/07/24 19:15 79 20 07/07/24 18:07 99.7 91 18 117/71 99 Room Air LABS: Hematology Labs: Test 07/07/24 13:18 07/07/24 04:50 07/06/24 06:33 Range/Units Hemoglobin 7.5 L 14.0-18.0 g/dL Hematocrit 23.5 L 42-54 % White Blood Count 8.8 4.8-10.8 K/uL Red Blood Count 2.57 L 4.50-6.20 MIL/uL Mean Corpuscular Volume 86.4 79-99 fL Mean Corpuscular Hemoglobin 27.6 27.0-33.0 pg Mean Corpuscular Hemoglobin Concent 32.0 32.0-36.0 g/dL Red Cell Distribution Width 18.5 H 11.0-15.5 % Platelet Count 208 130-400 K/uL Mean Platelet Volume 9.4 7.5-10.5 fL Nucleated Red Blood Cells 0.0 0.0-0.19 % Immature Granulocyte % (Auto) 5.6 H 0-1 % Neutrophils (%) (Auto) 77.7 H 40.0-77.0 % Lymphocytes (%) (Auto) 9.6 L 21.0-51.0 % Monocytes (%) (Auto) 5.2 3.0-13.0 % Eosinophils (%) (Auto) 1.8 0.0-8.0 % Basophils (%) (Auto) 0.1 0.0-5.0 % Neutrophils # (Auto) 6.9 1.8-7.7 K/uL Lymphocytes # (Auto) 0.9 L 1.0-4.8 K/uL Monocytes # (Auto) 0.5 0.1-1.0 K/uL Eosinophils # (Auto) 0.16 0.00-0.70 K/uL Basophils # (Auto) 0.01 0.00-0.20 K/uL Absolute Immature Granulocyte (auto 0.50 0-1 K/uL White Cell Morphology Comment See comments Red Blood Cell Morphology See comments Chemistry Labs: Test 07/07/24 16:02 07/07/24 04:50 Range/Units Whole Blood Glucose 237 H 70-110 MG/DL Sodium Level 131 L 136-145 mmol/L Potassium Level 4.6 3.5-5.1 mmol/L Chloride Level 97 L 101-111 mmol/L Carbon Dioxide Level 27 21-32 mmol/L Blood Urea Nitrogen 37 H 7-18 mg/dL Creatinine 1.6 H 0.5-1.3 mg/dL Glomerular Filtration Rate Calc 46 >90 mL/min Random Glucose 234 H 70-105 mg/dL Total Calcium 7.1 L 8.5-10.1 mg/dL DIAGNOSTICS / RADIOLOGY RESULTS: [ ] PLAN NEURO: Minimize central acting medications as possible. Maintain fall precautions, adequate lighting during the day PULMONARY: Supplemental 02 as needed. Maintain aspiration precautions at all times CARDIOVASCULAR: Follow hemodynamics. Vital signs per facility protocol GI & NUTRITION: Continue with nutritional support. Continue stool softeners and laxatives as needed. KIDNEYS & ELECTROLYTES: Strict monitoring of intake, output and overall fluid balance. Avoid nephrotoxic medications to the extent possible. Medications to be dosed according to renal function. Monitor electrolytes and replace as needed ENDOCRINE: Maintain blood glucose between 100-180 at all times. Hypoglycemia protocol in place INFECTIOUS DISEASE: Trend temperature, WBC and procalcitonin level Follow cultures, deescalate antibiotics as soon as possible. Panculture if new onset fever ONCOLOGY/HEMATOLOGY/COAGULATION: Monitor for s/s of bleeding Monitor hemoglobin, coagulation studies as needed SKIN: Pressure ulcer prevention per facility protocol Specialty mattress ORTHO/REHAB: Continue PT/OT Prophylaxis: Continue GI and DVT prophylaxis Code Status: Full Resuscitation Disposition: [facility] once medically stable for discharge. VALE SHEPARD Jul 07, 2024 21:03
[2024-07-08] VITALS (10 sets, daily range): BP systolic 125–165; BP diastolic 53–72; PULSE 90–105; RESP 17–20; TEMP 97.6–99.5; O2SAT 99
[2024-07-08 05:17] LABS: MEAN CORPUSCULAR HEMOGLOBIN 28.2 pg (27.0-33.0); MEAN CORPUSCULAR HGB CONC 33.2 g/dL (32.0-36.0); MEAN CORPUSCULAR VOLUME 84.9 fL (79-99); RED BLOOD CELL COUNT(AUTO) 2.59 MIL/uL (4.50-6.20); RED CELL DISTRIBUTION WIDTH 18.4 % (11.0-15.5); WHITE BLOOD COUNT (AUTO) 7.9 K/uL (4.8-10.8)
[2024-07-08 05:18] LABS: CREATININE 1.6 mg/dL (0.5-1.3); POTASSIUM 5.2 mmol/L (3.5-5.1)
--- NOTE | 2024-07-08 15:45 | DS ---
[facility] DISCHARGE SUMMARY Date Patient Seen: Jul 08, 2024 Time of Visit: 15:40 Supervising Physician: Dr. Curtis Gillette Primary Care Physician: Dr. Huey Frank Outpatient Specialists: Inpatient Consults: Infectious disease Wound Care HOSPITAL COURSE: HPI (per admitting provider) Mr. Blanco is a 68-year-old male with a history of a DM type 2, CVA, DVT, hypertension, CVA, with ESRD requiring dialysis who presented to [facility] for evaluation of general body weakness and low blood pressure per EMS. Per ED physician the patient is coming from [facility] assisted and was sent due to concern for pulmonary congestion and fever. Per staff unknown how low the blood pressure was. Influenza and COVID are negative. Chest x-ray: Prominent interstitial markings are seen with possible superimposed infiltrates. ABGs: PH 7.543, pCO2 34, PO2 106.3, bicarbonate 25.9, O2 98.3, base excess 3.3, on2 L nasal cannula. Remarkable lab results: Hemoglobin 7.5, hematocrit 24.2, RBC 2.64, platelets 126, BUN 45, creatinine 2.1, GFR 33, blood glucose 298, total calcium 7.4, procalcitonin 1.9. UA positive for leuk EST. ED provider request patient be admitted with the diagnosis of pneumonitis, sepsi s, and upper respiratory infection. I went to assess the patient at bedside in ED 11. The patient appeared chronically ill, hot to touch, eyes closed, speech is slurred, does not follow command, has tremor to his left hand. Patient's was at bedside and stated that the patient has had a previous stroke and is sometime was oriented to self and sometimes to place. She states his baseline is slurred speech, is not able to move bilateral lower extremity, and has some movement to upper extremities. She stated that the patient has thrush, indwelling Mc that was placed in the hospital and has not been changed. She is requesting water for patient to most and his mouth. had multiple questions which were addressed by me. I informed the of labs, diagnostics, and plan of care. Education done on dysphagia and aspiration precautions. She verbalizes understanding and is in agreement with the plan. Plan and assessment are listed below. The patient was treated for the following problems: Patient was hospitalized for sepsis secondary to acute complicated cystitis as well as aspiration pneumonia, patient is with PEG tube which was placed June 30, 2024. Patient was admitted with acute infectious metabolic encephalopathy, upon discharge the patient is slightly more clear-headed, altered mental status seems to be subsiding. Prior to discharge patient received 1 unit PRBCs for hemoglobin of 6.3. His hemoglobin has recovered over the past couple of days however he is being discharged with SNF facility with orders for recurring H and H to be drawn for the next several days as well as physical therapy to be performed twice a day seven days a week as the patient was ambulatory with a walker prior to admission. ACTIVE PROBLEM LIST FOR THE HOSPITALIZATION: Sepsis without septic shock, POA, resolved Acute complicated cystitis, POA with outpatient mc, resolved, continues with Mc Large wounds to upper inner thighs, POA, treating Aspiration pneumonia, POA, resolved s/p peg tube placement on 06/20/2024 Acute infectious metabolic encephalopathy, POA , monitoring resolution Acute hypernatremia, Na-153, corrected ANJU on CKD stage 3b, GFR 33 POA (GFR 43 on 06/22/2024. GFR 14 on 06/03/2024) Hyperkalemia, treated Oral thrush, POA Anemia chronic disease Thrombocytopenia Debility/frailty/general body weakness Diabetes mellitus with hyperglycemia, A1c 8.5 on 06/11/24 LVEF 60-65, left ventricular diastolic dysfunction is indeterminate. Left atrium size is mildly dilated, per echo on 06/04/2024 Protein calorie malnutrition/hypoalbuminemia CHRONIC PROBLEMS: continue previous management per PCP unless otherwise indicated Remote CVA, Hypertension, hyperlipidemia, diabetes mellitus, right eye surgery History of DVT on Xarelto. (normal bilateral lower extremity venous Doppler subtle on 06/17/2024) History of DKA History of in-hospital cardiac arrest (5 minutes) on 06/06/2024 Acute hypoxemic respiratory failure intubated in 06/06/2024 and extubated on 06/15/2024 History of a Gram-negative bacteria, positive Proteus mirabilis History of liver failure with hyperbilirubinemia and thrombocytopenia History of coagulopathy with critically elevated fibrinogen level and thrombocytopenia History of TMA, right eye surgery. Peg tube placement on 06/20/2024 [employer] FINDINGS/RECOMMENDATIONS: [ ] PROCEDURES: as mentioned above DISCHARGE MEDICATIONS: Pt hemodynamically stable and afebrile at time of discharge. PCP notified of patients admission, hospital course and discharge. PHYSICAL EXAM: GENERAL: Weak, awake oriented x 1, chronically ill-appearing HEENT: EOMI, Sclera non icteric, moist mucosa NECK: Supple, no JVD, trachea midline LUNGS: Diminished, breath sounds bilaterally. No wheezes HEART: Regular rate and rhythm. Normal S1 and S2, without murmurs ABD: Abdomen soft, nontender. Bowel sounds present. : Mc in place. SKIN: Large wounds yellowish in color with erythema to inner thighs. EXT: No clubbing cyanosis or edema. Bilateral TMA. NEURO: Oriented to person, does not follow command. Speech is clear slurred, unable to move lower extremities, limited upper extremities movement at baseline per . FOLLOW-UP: Follow-up with PCP in 2-3 days RECOMMENDATIONS: See Discharge Instructions This case was seen and discussed with my supervising physician. More than 30 minutes spent on discharge process, including evaluation of the patient, discussion with nursing staff, medication reconciliation and follow-up appointments VALE SHEPARD Jul 08, 2024 15:45
--- NOTE | 2024-07-08 21:30 | NUR ---
CONTACTED [facility] FOR UPDATE ON PATIENT TRANSPORT AND WAS NOTIFIED THAT HE IS NEXT ON THE LIST. UPDATED FAMILY AT BEDSIDE.
--- NOTE | 2024-07-09 00:02 | NUR ---
CALLED [facility] FOR UPDATE. WAS NOTIFIED PATIENT IS NEXT ON LIST AND IT IS TAKING LONG DUE TO EMERGENCY CALLS TAKING PRIORITY. UPDATED FAMILY AT BEDSIDE.
--- NOTE | 2024-07-09 01:29 | NUR ---
EMS ARRIVED TO TRANSPORT PATIENT TO [facility].
== END 2024-07-09 01:25 | DRG 871 ==
LOC: EDH 15:50 → OBSVTOIN 19:14 → EDHIP 19:14 → 3CH 21:08
PROVIDERS: ADMIT Internal Medicine Critical Care Medicine; ATTEND Internal Medicine Critical Care Medicine
PROC: 02HV33Z Insertion of Infusion Device into Superior Vena Cava, Percutaneous Approach (ICD-10-PCS; 2024-06-26)
PROC: 30233N1 Transfusion of Nonautologous Red Blood Cells into Peripheral Vein, Percutaneous Approach (ICD-10-PCS; principal; 2024-07-05)
DX: A41.50 Gram-negative sepsis, unspecified (principal); G93.41 Metabolic encephalopathy; J69.0 Pneumonitis due to inhalation of food and vomit; N18.6 End stage renal disease; N30.00 Acute cystitis without hematuria; N17.9 Acute kidney failure, unspecified; B37.0 Candidal stomatitis; E46 Unspecified protein-calorie malnutrition; L97.119 Non-pressure chronic ulcer of right thigh with unspecified severity; L97.129 Non-pressure chronic ulcer of left thigh with unspecified severity; E87.0 Hyperosmolality and hypernatremia; B37.49 Other urogenital candidiasis; I12.0 Hypertensive chronic kidney disease with stage 5 chronic kidney disease or end stage renal disease; Z20.822 Contact with and (suspected) exposure to COVID-19; Z93.1 Gastrostomy status; D63.1 Anemia in chronic kidney disease; D69.6 Thrombocytopenia, unspecified; E11.22 Type 2 diabetes mellitus with diabetic chronic kidney disease; H54.61 Unqualified visual loss, right eye, normal vision left eye; J98.4 Other disorders of lung; R65.20 Severe sepsis without septic shock; E78.5 Hyperlipidemia, unspecified; B95.2 Enterococcus as the cause of diseases classified elsewhere; E88.09 Other disorders of plasma-protein metabolism, not elsewhere classified; E87.5 Hyperkalemia; Z99.2 Dependence on renal dialysis; Z86.74 Personal history of sudden cardiac arrest; Z86.73 Personal history of transient ischemic attack (TIA), and cerebral infarction without residual deficits; Z86.718 Personal history of other venous thrombosis and embolism; Z83.3 Family history of diabetes mellitus; Z79.899 Other long term (current) drug therapy; Z68.28 Body mass index [BMI] 28.0-28.9, adult
CPT/HCPCS: 36415; 36600; 71045; 80048; 80053; 81001; 82550; 82803; 82948; 83605; 83735; 83880; 84100; 84132; 84145; 84443; 84484; 85014; 85018; 85025; 85027; 85610; 85730; 86850; 86900; 86901; 86923; 87040; 87046; 87070; 87076; 87086; 87177; 87186; 87635; 87641; 87804; 93005; 94640; 94664; 96365; 96366; 96367; 96375; 99291; G0378; J0360; J0692; J0696; J1650; J1815; J1940; J2020; J2185; J2919; J3480; P9016; J3370